=== PATIENT | female | born 1960 | race Caucasian/White ===

== ENCOUNTER → 2017-02-02 | Day surgery (SDC) | payer MEDICARE, MEDICAID ==
[~2017-02-02] VITALS: Ht 165.1 cm; Wt 143.3 kg
[~2017-02-02] MED LIST: AUGM875T27 PO; BISAC5TA PO; DOXY150C PO; FLUC10TA PO; FURO40TA2 PO; GABA-283 PO; HumaLOG INSULIN (NovoLOG) PER UNIT As Ordered ONE; HumaLOG INSULIN (NovoLOG) PER UNIT SC ONE; INSULANT SC; INVO300T PO; LEVOTAB10 PO; LIDOCAINE 2% INJ 100 MG/5 ML SDV (FOR ANES.) As Ordered ONE; LORA1TAB12 PO; LR 1,000 ML IV SCH; LYRI225C PO; METOCLOPRAMIDE INJ 10MG/2ML VIAL (J2765) As Ordered ONE; METOCLOPRAMIDE INJ 10MG/2ML VIAL (J2765) IV PRN; MIDAZOLAM INJ 2 MG/2 ML VIAL (J2250) As Ordered ONE; MONT10TA2 PO; NALOXONE INJ 0.4 MG/1 ML VIAL (J2310) As Ordered ONE; NORCO, ANEXSIA 5/325MG TABLET (HYDROcodone/ACETAMINOPHEN) PO PRN; OMEP40CA2 PO; ONDANSETRON 4MG/2ML VIAL (J2405) As Ordered ONE; ONDANSETRON 4MG/2ML VIAL (J2405) IV PRN; OXYC1TAB15 PO; OXYC5TAB2 PO; PERCOCET 5MG/325MG TAB PO PRN; PRAM0.5T4 PO; PROPOFOL 200 MG/20 ML VIAL As Ordered ONE; RANI1TAB6 PO; ROBA500T PO; ROPIvacaine 0.5% 30 ML INJECTION (J2795) As Ordered ONE; TOUJ1.2I SC; TRAZ100T4 PO; VENL150C43 PO; VENL37TA PO; VICT18IN SC; VITA500047 PO; fentaNYL 100 MCG/2 ML INJECTION (J3010) As Ordered ONE; fentaNYL 100 MCG/2 ML INJECTION (J3010) IV PRN
[2017-02-02 12:00] VITALS: BP 146/67
--- NOTE | 2017-02-03 08:19 | RO ---
DATE OF PROCEDURE: 02/02/2017 PREOPERATIVE DIAGNOSES: Right knee osteoarthritis and medial meniscus tear. POSTOPERATIVE DIAGNOSES: Right knee osteoarthritis and medial meniscus tear. Patient has morbid obesity with a body mass index (BMI) of 53. PROCEDURE: Right knee operative arthroscopy, partial medial (dictation cut off) debridement. SURGEON: Kirby Juarez MD PRINTED CIRCUIT PHOTOGRAPHER: EDITH Singh ANESTHESIA: Attempted spinal converted to a general. ESTIMATED BLOOD LOSS: Minimal. COMPLICATIONS: None. INDICATIONS: This is a 56-year-old, morbidly obese woman with BMI of 53, who has had gradually worsening right knee pain. MRI scan was consistent with a medial meniscus tear and some arthritis. She wished to ahead with surgical treatment having failed conservative management. She understood the nature of the procedure, risks of bleeding, infection, damage to nerves, vessels, persistent pain, wear loosening, blood clots, medical problems, , among others. A preop clearance was obtained. DESCRIPTION OF PROCEDURE: Patient was taken to the operating room and placed in supine position after an attempted spinal was performed and then this was converted to a general and the right lower extremity was prepped and draped in usual sterile fashion. A tourniquet was placed and inflated. I, after a time-out was performed, created inferomedial and inferolateral portals per routine. We did have to deflate the tourniquet briefly because she started moving a little bit and we had some bleeding that passed with tourniquet. So we deflated the tourniquet, reinflated it after elevation and I had much better visualization. The patellofemoral joint had grade 3 changes on the patella, which was carefully smoothed off with a shaver. She did have a medial plica and a suprapatellar plica that were excised. I proceeded down both gutters, identified the medial compartment. There was at least moderate arthritic change on the medial side. She had a complex posterior horn medial meniscus tear that was resected using a combination of basket punch and a 4.2 shaver back to a stable rim. I smoothed off the articular cartilage flaps that were loose, but again, there was grade II-III changes on the medial femoral condyle and medial tibial plateau. I debrided some of the fat pad. The anterior cruciate ligament (ACL) was identified, lateral compartment was identified, although it had some grade 1 changes did not have any significant meniscus pathology. I reexamined the entire joint. Irrigated copiously. Removed the instrumentation. Closed the portals using #4-0 nylon suture. Injected 30 mL of Naropin. Sterile dressing was applied. Tourniquet was deflated. She was taken to recovery room in stable condition. There were known complications. The plan will be routine postop. This was coded is an unusually difficult procedure because her morbid obesity, which made visualization much more difficult, much more difficult to manage and position the leg.
== END | disposition home or self-care (01) ==
LOC: M SDC 05:49
PROVIDERS: ATTEND Orthopaedic Surgery
DX: M17.11 Unilateral primary osteoarthritis, right knee (principal); M23.221 Derangement of posterior horn of medial meniscus due to old tear or injury, right knee; E66.01 Morbid (severe) obesity due to excess calories; E11.9 Type 2 diabetes mellitus without complications; Z79.4 Long term (current) use of insulin; F41.9 Anxiety disorder, unspecified; Z87.891 Personal history of nicotine dependence
CPT/HCPCS: 29881; J0690; J2250; J2310; J2405; J2765; J2795; J3010

== ENCOUNTER 2018-03-18 15:14 | Emergency (ER) | payer MEDICARE, MEDICAID ==
[2018-03-18] MEDS: CLINDAMYCIN 600 MG in APPROPRIATE DILUENT 1 EA IV (16:57)
[2018-03-18 17:17] LABS: BASO # 0.1 10^3/uL (0.0-0.2); BASO % 0.5 % (0.0-1.0); EOS # 0.1 10^3/uL (0.0-0.50); EOS % 0.5 % (0.0-3.0); HEMATOCRIT 42.3 % (36.0-47.0); HEMOGLOBIN 13.6 g/dl (12.0-15.5); LYMPH # 2.4 10^3/uL (1.5-4.5); LYMPH % 24.6 % (24.0-44.0); MEAN CORPUSCULAR HEMOGLOBIN 28.6 pg (27.0-33.0); MEAN CORPUSCULAR HGB CONC 32.2 g/dl (32.0-36.5); MEAN CORPUSCULAR VOLUME 89.1 fl (80.0-96.0); MONO # 0.5 10^3/uL (0.0-0.8); MONO % 5.3 % (0.0-5.0); NEUTROPHILS # 6.6 10^3/uL (1.8-7.7); NEUTROPHILS % 68.1 % (36.0-66.0); PLATELET COUNT, AUTOMATED 197 10^3/uL (150-450); RED BLOOD COUNT 4.75 10^6/uL (4.00-5.40); RED CELL DISTRIBUTION WIDTH 14.5 % (11.5-14.5); WHITE BLOOD COUNT 9.8 10^3/uL (4.0-10.0)
[2018-03-18 17:22] LABS: ANION GAP 8 MEQ/L (8-16); BLOOD UREA NITROGEN 15 MG/DL (7-18); C REACTIVE PROTEIN QUANTITATIV 2.56 MG/DL (0.00-0.30); CALCIUM LEVEL 8.3 MG/DL (8.5-10.1); CARBON DIOXIDE LEVEL 31 MEQ/L (21-32); CHLORIDE LEVEL 105 MEQ/L (98-107); CREATININE FOR GFR 0.78 MG/DL (0.55-1.30); GLOMERULAR FILTRATION RATE > 60.0 (>51); GLUCOSE, FASTING 287 MG/DL (70-100); POTASSIUM SERUM 3.3 MEQ/L (3.5-5.1); SODIUM LEVEL 144 MEQ/L (136-145)
[2018-03-18 17:46] LABS: ERYTHROCYTE SEDIMENTATION RATE 29 mm/hr (0-30)
== END 2018-03-18 18:09 | disposition home or self-care (01) ==
LOC: M ED 15:14
DX: L03.116 Cellulitis of left lower limb (principal); E11.9 Type 2 diabetes mellitus without complications; K21.9 Gastro-esophageal reflux disease without esophagitis; M79.7 Fibromyalgia; Z79.899 Other long term (current) drug therapy
CPT/HCPCS: 80048

== ENCOUNTER → 2019-03-16 | Outpatient (CLI) | payer MEDICARE, MEDICAID ==
[~2019-03-16] MED LIST changes: +ALEV220T26 PO; +BACT800T5 PO; -GABA-283 PO; +GABA-845 PO; -HumaLOG INSULIN (NovoLOG) PER UNIT As Ordered ONE; -HumaLOG INSULIN (NovoLOG) PER UNIT SC ONE; -LIDOCAINE 2% INJ 100 MG/5 ML SDV (FOR ANES.) As Ordered ONE; -LR 1,000 ML IV SCH; -METOCLOPRAMIDE INJ 10MG/2ML VIAL (J2765) As Ordered ONE; -METOCLOPRAMIDE INJ 10MG/2ML VIAL (J2765) IV PRN; -MIDAZOLAM INJ 2 MG/2 ML VIAL (J2250) As Ordered ONE; -NALOXONE INJ 0.4 MG/1 ML VIAL (J2310) As Ordered ONE; -NORCO, ANEXSIA 5/325MG TABLET (HYDROcodone/ACETAMINOPHEN) PO PRN; -ONDANSETRON 4MG/2ML VIAL (J2405) As Ordered ONE; -ONDANSETRON 4MG/2ML VIAL (J2405) IV PRN; -PERCOCET 5MG/325MG TAB PO PRN; +PRAM0.5T7 PO; -PROPOFOL 200 MG/20 ML VIAL As Ordered ONE; -ROPIvacaine 0.5% 30 ML INJECTION (J2795) As Ordered ONE; +TIZANIDINE PO; +TRAZ-163 PO; -TRAZ100T4 PO; -fentaNYL 100 MCG/2 ML INJECTION (J3010) As Ordered ONE; -fentaNYL 100 MCG/2 ML INJECTION (J3010) IV PRN
[2019-03-16 13:31] LABS: BASO # 0.1 10^3/uL (0.0-0.2); BASO % 0.7 % (0.0-1.0); EOS % 0.5 % (0.0-3.0); HEMATOCRIT 41.3 % (36.0-47.0); HEMOGLOBIN 13.1 g/dl (12.0-15.5); LYMPH # 1.9 10^3/uL (1.5-4.5); LYMPH % 24.4 % (24.0-44.0); MEAN CORPUSCULAR HEMOGLOBIN 28.8 pg (27.0-33.0); MEAN CORPUSCULAR HGB CONC 31.7 g/dl (32.0-36.5); MEAN CORPUSCULAR VOLUME 90.8 fl (80.0-96.0); MONO # 0.5 10^3/uL (0.0-0.8); MONO % 6.5 % (0.0-5.0); NEUTROPHILS # 5.2 10^3/uL (1.8-7.7); NEUTROPHILS % 67.2 % (36.0-66.0); PLATELET COUNT, AUTOMATED 169 10^3/uL (150-450); RED BLOOD COUNT 4.55 10^6/uL (4.00-5.40); WHITE BLOOD COUNT 7.7 10^3/uL (4.0-10.0)
[2019-03-16 14:50] LABS: ALBUMIN 3.9 GM/DL (3.2-5.2); ALT/SGPT 23 U/L (12-78); BILIRUBIN,TOTAL 0.5 MG/DL (0.2-1.0); BLOOD UREA NITROGEN 17 MG/DL (7-18); CALCIUM LEVEL 8.6 MG/DL (8.5-10.1); CARBON DIOXIDE LEVEL 31 MEQ/L (21-32); CHLORIDE LEVEL 106 MEQ/L (98-107); CHOLESTEROL LEVEL 169 MG/DL (<200); CHOLESTEROL RISK RATIO 4.828 (<5); CREATININE FOR GFR 0.62 MG/DL (0.55-1.30); GLOMERULAR FILTRATION RATE > 60.0 (>51); GLUCOSE, FASTING 187 MG/DL (70-100); HDL CHOLESTEROL 35 MG/DL (>40); LDL CHOLESTEROL 110 MG/DL (<100); NON-HDL-C 134 MG/DL; POTASSIUM SERUM 4.3 MEQ/L (3.5-5.1); SODIUM LEVEL 143 MEQ/L (136-145); TOTAL 25(OH) VITAMIN D 24.9 NG/ML (30.0-100.0); TOTAL PROTEIN 6.8 GM/DL (6.4-8.2); TRIGLYCERIDES LEVEL 119 MG/DL (<150)
[2019-03-16 16:13] LABS: HEMOGLOBIN A1c 8.8 %
== END ==
LOC: M WUC 11:54
PROVIDERS: ATTEND Nurse Practitioner Family
DX: Z13.220 Encounter for screening for lipoid disorders (principal); I10 Essential (primary) hypertension; E55.9 Vitamin D deficiency, unspecified; E11.9 Type 2 diabetes mellitus without complications

== ENCOUNTER → 2019-11-10 | Outpatient (CLI) | payer MEDICAID, MEDICARE, OTHER ==
[~2019-11-10] MED LIST changes: +OMEP40CA97 PO; +RANI-397 PO; -RANI1TAB6 PO
--- NOTE | 2019-11-10 12:29 | REPMRS ---
Patient History The patient states she has not had a clinical breast exam in over a year. Family history of lymphoma at age 62 in mother, breast cancer under age 50 in maternal aunt, prostate cancer at age 70 in maternal uncle. Priors done @ [facility]: November 10, 2019 - Exam #: [id number] Bilateral CC and MLO view(s) were taken. Technologist: Valarie Maciel, Technologist Prior study comparison: April 22, 2017, bilateral digital woman screen mammo, performed at [facility]. FINDINGS: The breast tissue is almost entirely fat. There has been no change in the appearance of the mammogram from the prior studies. There is no interval development of dominant mass, architectural distortion, or grouped microcalcification typical of malignancy. 3-D tomosynthesis shows no additional findings. Assessment: BI-RADS/ACR category 1 mammogram. Negative Mammogram. Recommendation Routine screening mammogram of both breasts in 1 year (for women over age 40). This patient's Lifetime Breast Cancer RIsk is estimated at 10.9 %. This mammogram was interpreted with the aid of an FDA-approved computer-aided dectection system. Electronically Signed By: Arnoldo Clayton MD 11/10/19 2931
--- NOTE | 2019-11-15 09:31 | DEXA ---
AP SPINE L1 - L4 1.288 0.8 1.8 LT FEMUR TOTAL 1.066 0.5 1.3 LT NECK 0.889 -1.1 0.1 RT FEMUR TOTAL 1.047 0.3 1.1 RT NECK 0.880 -1.1 0.0 TOTAL BODY TOTAL OTHER COMMENTS: Normal bone densitometry of the spine. There is low bone density of the hips. FOLLOW-UP: Recommendation for the next bone density exam: 2 years. EUGENIO
== END ==
LOC: M WHC 10:03
PROVIDERS: ATTEND Nurse Practitioner Family
DX: Z12.31 Encounter for screening mammogram for malignant neoplasm of breast (principal); Z13.820 Encounter for screening for osteoporosis; Z80.3 Family history of malignant neoplasm of breast

== ENCOUNTER → 2019-11-28 | Outpatient (REF) | payer MEDICARE ==
[2019-11-28 20:48] LABS: HEMOGLOBIN A1c 9.2 %
[2019-11-28 20:57] LABS: CREATININE, URINE 25.3 MG/DL; MALB URINE SIEMENS 35.7 MG/L; MAU/CREAT RATIO 141.1 MCG/MG (0.0-30.0)
== END ==
LOC: M SFHCLERA 17:02
PROVIDERS: ATTEND Nurse Practitioner Family
DX: E11.9 Type 2 diabetes mellitus without complications (principal); R53.83 Other fatigue; Z79.899 Other long term (current) drug therapy

== ENCOUNTER → 2019-12-15 | Outpatient (CLI) | payer MEDICARE ==
[~2019-12-15] MED LIST changes: -LORA1TAB12 PO; +LORA1TAB4 PO; -MONT10TA2 PO; +MONT10TA4 PO; -TRAZ-163 PO; +TRAZ-257 PO
--- NOTE | 2020-01-04 03:22 | ECWPNPC ---
PATIENT NAME: KLAUS MUNOZ : 1960 GENDER: FEMALE VISIT DATE: 12/15/2019 DISCHARGE DATE: 12/15/19 1542 VISIT LOCKED DATE TIME: PHYSICIAN: ROEL CORBETT RESOURCE: ROEL CORBETT REASON FOR APPOINTMENT 1. FIBROMYALGIA HISTORY OF PRESENT ILLNESS PAIN SCREENIN-YEAR-OLD FEMALE BEING REFERRED BY IVETTE SUTTON, FAMILY PRACTICE FOR CHRONIC GENERALIZED PAIN WITH DIAGNOSIS OF FIBROMYALGIA. PATIENT HAS SUFFERED FROM GENERALIZED JOINT PAIN AND BACK PAIN FOR SEVERAL YEARS. DENIES PRECIPITATING EVENT. FEELS PAIN IS ESCALATED OVER THE PAST 2 YEARS. HAS TRIALED LYRICA IN 2013 WITH A 45 POUND WEIGHT GAIN DUE TO SWELLING. CHIEF AREA OF PAIN IS HIPS AND SHOULDERS. HAS BEEN ON GABAPENTIN 300 MG 3 TIMES A DAY THAT IS BEEN HELPFUL WITH NEUROPATHY. HAS TRIALED TRIGGER POINT INJECTIONS AT ANOTHER PAIN PRACTICE LOCALLY WITH SHORT-TERM IMPROVEMENT. DESCRIBES PAIN CONTINUOUS, SHARP, ACHING AND STABBING. RATING PAIN INTENSITY 7-10 OVER 10 VAS. REPORTS DEPRESSIVE SYMPTOMS DUE TO INABILITY TO TOLERATE ACTIVITIES OF DAILY LIVING DUE TO CHRONIC PAIN. PATIENT HAS A COMPLAINT OF ACUTE OR CHRONIC PAIN :YES FALL RISK SCREENING: SCREENING :NO FALLS REPORTED IN THE LAST YEAR CURRENT MEDICATIONS TAKING CEPHALEXIN 500 MG CAPSULE 1 CAPSULE ORALLY EVERY 12 HRS TAKING GABAPENTIN 300 MG CAPSULE 1 CAPSULE ORALLY THREE TIMES DAILY TAKING RANITIDINE 150 MAX STRENGTH 150 MG TABLET 1 TABLET AT BEDTIME ORALLY BID TAKING TIZANIDINE HCL 4 MG TABLET TK 1 T PO TID PRN ORAL TAKING VENLAFAXINE HCL ER 150 MG CAPSULE EXTENDED RELEASE 24 HOUR 1 CAPSULE WITH FOOD ORALLY ONCE A DAY TAKING OMEPRAZOLE 40 MG CAPSULE DELAYED RELEASE 1 CAPSULE ORALLY ONCE A DAY TAKING INVOKANA 300 MG TABLET 1 TABLET ORALLY ONCE A DAY TAKING MONTELUKAST SODIUM 10 MG TABLET 1 TABLET ORALLY ONCE A DAY TAKING TRAZODONE HCL 100 MG TABLET 1 TABLET AT BEDTIME ORALLY ONCE A DAY TAKING LEVOCETIRIZINE DIHYDROCHLORIDE 5 MG TABLET 1 TABLET IN THE EVENING ORALLY ONCE A DAY TAKING TOUJEO SOLOSTAR 300 UNIT/ML SOLUTION PEN-INJECTOR 100 UNITS SUBCUTANEOUS BEFORE BEDTIME TAKING VENLAFAXINE HCL 37.5 MG TABLET 1 TABLET WITH FOOD ORALLY BID TAKING PRAMIPEXOLE DIHYDROCHLORIDE 0.5 MG TABLET 2 TABLET ORALLY ONCE A DAY TAKING FUROSEMIDE 40 MG TABLET 1 TABLET ORALLY DAILY/PRN, NOTES: PT TAKES PRN TAKING AMITRIPTYLINE HCL 10 MG TABLET 2 TAB ORALLY ONCE A DAY TAKING JANUVIA 100 MG TABLET TAKE 1 TABLET EVERY DAY , NOTES: 1/2 TAB DAILY TAKING DRISDOL 1.25 MG (58013 UT) CAPSULE 1 CAPSULE ORALLY WEEKLY TAKING LIDOCAINE HCL 5 % CREAM DIRECTED EXTERNALLY THREE TIMES DAILY NEEDED NOT-TAKING DIFLUCAN 150 MG TABLET 1 TABLET ORALLY ONCE DAILY, REPEAT IN 72 HOURS NOT-TAKING LEVOCETIRIZINE DIHYDROCHLORIDE 5 MG TABLET 1 TABLET IN THE EVENING ORALLY ONCE A DAY MEDICATION LIST REVIEWED AND RECONCILED WITH THE PATIENT PAST MEDICAL HISTORY FIBROMYALGIA DIABETES DYSTHYMIA INSOMNIA SINUSITIS/ALLERGIC RHINITIS GERD ANXIETY HERNIATED DISCS CERVICAL SPINE ALLERGIES N.K.D.A. SURGICAL HISTORY GALLBLADDER REMOVED RIGHT KNEE BILAT HANDS CARPEL TUNNEL PARTIAL HYSTERECTOMY RIGHT ARM LUMP REMOVAL FAMILY HISTORY FATHER: 82 YRS MOTHER: 62 YRS, DIAGNOSED WITH OTHER MALIGNANT NEOPLASM OF UNSPECIFIED SITE 2 BROTHER(S) , 1 SISTER(S) - HEALTHY. 1 SON(S) , 1 DAUGHTER(S) - HEALTHY. ALL SIBLINGS ARE DIABETICSISTER - THYROID DISEASEMOTHER - CANCER OF LYMPH NODESFATHER - COPD. SOCIAL HISTORY GENERAL: TOBACCO USE ARE YOU A:FORMER SMOKER QUIT 2007 HIV / HEP-C SCREENING HIV TEST OFFERED TO PATIENT:YES DATE OFFERED:07/12/2019 TEST ACCEPTED:NO HEP-C TEST OFFERED TO PATIENT:YES DATE OFFERED:07/12/2019 REASON:PATIENT DECLINED TEST ACCEPTED:NO REASON:PATIENT DECLINED BROCHURE PROVIDED TO PATIENTYES OTHERS AT HOME: SPOUSE, CHILD, GRANDCHILDREN. EDUCATION LEVEL OF EDUCATION:FINISHED HIGH SCHOOL DIET: REGULAR. LANGUAGE LANGUAGES SPOKEN:ROMANIAN DOMESTIC VIOLENCE DO YOU FEEL SAFE IN YOUR ENVIRONMENT?YES BMI CARE GOAL FOLLOW-UP ABOVE NORMAL BMI FOLLOW-UPDIETARY MANAGEMENT EDUCATION, GUIDANCE, AND COUNSELING, DIETARY NEEDS EDUCATION RECREATIONAL DRUG USE DRUG USE?NO PATIENT DENIES ABUSE OR MISSUSED OF ANY MEDICATION DENIES PATIENT DENIES USE OF ANY ILLEGAL SUBSTANCE INCLUDING MARIJUANA OR COCAINE DENIES EXERCISE: WALKS. LEARNING BARRIERS / SPECIAL NEEDS CHANGE FROM LAST VISIT?NO BARRIERS TO LEARNING?NO HEARING IMPAIRED?NO VISION IMPAIRED?YES :CORRECTIVE LENSES COGNITIVELY IMPAIRED?NO READINESS TO LEARN?YES LEARNING PREFERENCES?NO LEARNING CAPABILITIES PRESENT?YES EMOTIONAL BARRIERS?NO SPECIAL DEVICES?YES :CANE, WALKER ONLY USES WHEN NEEDED SUPERVISOR GRADING NEEDED?NO PAIN CLINIC PFS, CLERGY, PUBLIC HEALTH REFERRALS PFS REFERRAL NEEDED?NO CLERGY REFERRAL NEEDED?NO PUBLIC HEALTH REFERRAL NEEDED?NO WAS THE PROVIDER NOTIFIED OF ANY PERTINENT INFO?YES HAS THE PATIENT BEEN EDUCATED REGARDING HIS/HER PLAN OF CARE?YES HAS THE PATIENT BEEN EDUCATED REGARDING PAIN, THE RISK FOR PAIN, THE IMPORTANCE OF EFFECTIVE PAIN MANAGEMENT, AND THE PAIN ASSESSMENT PROCESS?YES LATEX QUESTIONNAIRE LATEX ALLERGY : HAVE YOU EVER DEVELOPED ANY TYPE OF REACTION AFTER HANDLING LATEX PRODUCTS SUCH RUBBER GLOVES, CONDOMS, DIAPHRAGMS, BALLOONS, SOCKS, OR UNDERWEAR?NO LATEX ALLERGY : HAVE YOU EVER DEVELOPED ANY TYPE OF REACTION DURING OR AFTER DENTAL APPOINTMENT, VAGINAL/RECTAL EXAMINATION, SURGICAL PROCEDURE, OR ANY OTHER EXPOSURE?NO LATEX RISK : HAVE YOU EVER HAD ANY DIFFICULTY BREATHING OR HIVES AFTER EATING OR HANDLING ANY FRUITS, OR VEGETABLES; SUCH KIWI, BANANAS, STONE FRUITS, OR CHESTNUTSNO LATEX RISK : DO YOU HAVE A PREVIOUS PERSONAL HISTORY OF MORE THAN NINE SURGERIES, SPINA BIFIDA, OR REPEATED CATHERIZATIONS? NO LATEX RISK : ARE YOU FREQUENTLY EXPOSED TO LATEX PRODUCTS IN YOUR OCCUPATION?NO DATE ASKED : 11/03/2019 CAFFEINE CAFFEINE USE?YES HOW OFTEN AND HOW MUCH? DIET PEPSI ADVANCE DIRECTIVE ADVANCE DIRECTIVE DISCUSSED WITH PATIENT:YES PT STATES SHE HAS A HCP- SON CYNTHIA MUNOZ [phone] UATSDIN [id number] ALEVISM MARITAL STATUS: . ALCOHOL SCREENING DID YOU HAVE A DRINK CONTAINING ALCOHOL IN THE PAST YEAR?YES HOW OFTEN DID YOU HAVE A DRINK CONTAINING ALCOHOL IN THE PAST YEAR?MONTHLY OR LESS (1 POINT) HOW MANY DRINKS DID YOU HAVE ON A TYPICAL DAY WHEN YOU WERE DRINKING IN THE PAST YEAR?1 OR 2 (0 POINTS) HOW OFTEN DID YOU HAVE SIX OR MORE DRINKS ON ONE OCCASION IN THE PAST YEAR?NEVER (0 POINTS) POINTS1 INTERPRETATIONNEGATIVE OCCUPATION: DISABLED. SEXUAL HX HAD SEX IN THE LAST 12 MONTHS (VAGINAL, ORAL, OR ANAL)?NO HAVE YOU EVER HAD AN STD?NO REVIEWED WITH PATIENT 12/15/2019 1329 JS. HOSPITALIZATION/MAJOR DIAGNOSTIC PROCEDURE SURGERIES CHILD BOIL TO LEFT BUTTOCKS REVIEW OF SYSTEMS REVIEWED BY: PROVIDER: ROEL STEELE . CONSTITUTIONAL: ANY CHANGE IN YOUR MEDICAL CONDITION? NO . CHILLS NO . FEVER NO . INFECTION: DO YOU HAVE NEW INFECTIONS? NO . DO YOU HAVE HISTORY OF MRSA? NO . MUSCULOSKELETAL: ANY NEW PATTERNS OF PAIN OR NUMBNESS? YES, STATES NUMBNESS IN HANDS AND ARMS WORSENING - UNABLE TO HOLD THINGS AT TIMES. ALSO STATES SHAKINESS THAT STARTED RECENTLY. CONSTANTLY IN PAIN AND CONSTANTLY MOVING TO TRY TO GET MORE COMFORTABLE AND HAVE LESS PAIN . SYTEMIC LUPUS NO . GASTROENTEROLOGY: ANY NEW CHANGE IN BOWEL CONTROL? YES, STATES OCCASSIONAL INCONTINENCE DUE TO URGENCY - CAN'T TELL AHEAD OF TIME THAT SHE NEEDS TO HAVE A BOWEL MOVEMENT . BARRETTS ESOPHAGUS NO . CIRRHOSIS NO . HEPATITIS NO . LIVER FAILURE NO . ACID REFLUX YES . UNEXPLAINED WEIGHT LOSS NO . GENITOURINARY: ANY NEW CHANGE IN BLADDER CONTROL? YES, STATES URGENCY, FREQUENCY, AND INCONTINENCE . IS THERE A CHANCE YOU COULD BE ? NO . HEMATOLOGY/LYMPH: DO YOU TAKE ANY BLOOD THINNERS? (FOR EXAMPLE- COUMADIN, PLAVIX, AGGRENOX, PLATEL, PRADAXA, OR XARELTO) NO . WHEN WAS YOUR LAST DOSE? DATE: TIME: . LOW PLATELET COUNT NO . SICKLE CELL DISEASE NO . VON WILLIEBRANDS NO . FACTOR V LEIDEN NO . THALLASEMIA NO . ANEMIA NO . EASY BRUISING NO . NEUROLOGY: HAVE YOU FALLEN IN THE PAST 12 MONTHS? NO . ANY NEW EXTREMITY NUMBNESS OR WEAKNESS? YES, NUMBNESS/WEAKNESS TO ARMS . HEAD INJURY NO . DEMENTIA NO . CEREBRAL PALSY NO . MULTIPLE SCLEROSIS NO . DIZZINESS NO . HEADACHE NO . STROKES NO . VERTIGO NO . CARDIOLOGY: DO YOU HAVE A PACEMAKER OR DEFIBRILLATOR? NO . ANGINA NO . HEART ATTACK NO . HEART SURGERY NO . CONGESTIVE HEART FAILURE/FLUID OVERLOAD NO . CHEST PAIN NO . HIGH BLOOD PRESSURE NO . IRREGULAR HEART BEAT NO . RESPIRATORY: HAVE YOU BEEN SICK IN THE PAST WEEK? NO . FEVER NO . FLU LIKE SYMPTOMS? NO . CPAP NO . BYPAP NO . ASTHMA NO . EMPHYSEMA NO . CHRONIC LUNG DISEASES NO . SHORTNESS OF BREATH ON EXERTION NO . COUGH NO . SNORING YES . INTEGUMENTARY: DO YOU HAVE ANY RASHES OR OPEN SORES? NO . ALLERGIC/IMMUNO: ARE YOU ALLERGIC TO IV DYE? NO . ANY NEW ALLERGIES? NO . PSYCHIATRIC: DO YOU HAVE THOUGHTS OF HURTING YOURSELF OR SOMEONE ELSE? NO . ARE YOU ABUSED, NEGLECTED, OR IN AN UNSAFE ENVIRONMENT? NO . ENDOCRINOLOGY: ARE YOU DIABETIC? YES, TYPE 2 . THYROID DISORDER NO . OTHER: DO YOU NEED ANY PRESCRIPTIONS? NO . IF YES, PLEASE LIST: ____ . ANY NEW PROBLEMS WITH YOUR MEDICATIONS? NO . WHEN DID YOU LAST EAT? ____ . WHEN DID YOU LAST DRINK? ____ . WHAT DID YOU LAST DRINK? ____ . NAME OF PERSON DRIVING YOU HOME? ____ . DO YOU HAVE ANY OTHER QUESTIONS OR CONCERNS YES, STATES HER QUALITY OF LIFE HAS JUST DECREASED SO MUCH AND NEARLY DIMINISHED AND IS CONCERNED THAT HER PAIN WILL NEVER SUBSIDE . VITAL SIGNS WT 328 LBS, HT 66 IN, BMI 52.93 INDEX, BP 149/76 MM HG, HR 103 /MIN, RR 18 /MIN, TEMP 98.1 F, OXYGEN SAT % 94%, SAFE IN ENV? (Y/N) YES, NA INITIALS AW 1317, REVIEWED BY: JOSE G. EXAMINATION GENERAL EXAMINATION: GENERAL AWAKE,ALERT ,PLEASANT . PSYCH AFFECT NORMAL . LUNGS: LUNG JACK ARE CLEAR TO AUSCULTATION BILATERALLY. GOOD MOVEMENT OF AIR . HEART: S1, S2 IN A REGULAR RATE AND RHYTHM. NO SIGNIFICANT MURMURS, RUBS OR GALLOPS NOTED . MUSCULOSKELETAL: MULTIPLE AREAS OF TENDER SPOTS UPPER/LOWER TORSO INDICATIVE OF FIBROMYALGIA. THORACIC SPINE: TRIGGER POINTS:, ELICITED WITH PALPATION OVER MID THORACIC PARASPINAL MUSCLES WITH INCREASE IN PAIN NOTED WITH ROJM SPINE.. ASSESSMENTS FIBROMYALGIA - M79.7 (PRIMARY) TREATMENT FIBROMYALGIA NOTES: TPI MID/LOW THORACIC, PATIENT WAS ADVISED TO START A WALKING PROGRAM TO STRENGTHEN LUMBAR PARASPINAL MUSCLES AND IMPROVE MOBILITY. THEY WERE ADVISED THAT THIS WILL IMPROVE WEIGHT LOSS AND ALSO DEPRESSION/FIBROMYALGIA SYMPTOMS. ADVISED TO WALK 10 MINUTES EVERY OTHER DAY ON A FLAT SURFACE. EMPHASIZED THE IMPORTANCE OF DOING THIS CONSISTANTLY AND NOT SPORATICALLY TO AVOID INJURY. ADVISED NOT TO DO MORE THAN 10 MINUTES EVERY OTHER DAY FOR THE FIRST 4 WEEKS.DISCUSSED BEING EVALUATED FOR DEPRESSION SECONDARY TO CHRONIC PAIN AT WALK [facility] AT [facility] THURSDAY THROUGH THURSDAY 8 UNTIL NOON. PREVENTIVE MEDICINE PAIN CLINIC TEACHING: PROCEDURE TEACHING PRINTED AND REVIEWED INFORMATION ON TRIGGER POINT INJECTION PROCEDURE WITH PATIENT. ALSO REVIEWED PRE-PROCEDURE INSTRUCTIONS. PATIENT VERBALIZED AN UNDERSTANDING. ZACARIAS PACHECO 12/15/2019 5:02:49 PM > . PROCEDURE CODES FA211 ESTABILISHED PATIENT [facility] FACILITY CHARGE DISPOSITION & COMMUNICATION FOLLOW UP POST (REASON: TPI MID/LOW THORACIC) ELECTRONICALLY SIGNED BY IVETTE LOYOLA ON 01/03/2020 AT 01:17 PM EST DISCLAIMER : THIS IS A VISIT SUMMARY EXTRACTED FROM THE [employer] CHART. IT IS NOT A COPY OF THE [employer] PROGRESS NOTE. EUGENIO
== END ==
LOC: M PAIN 13:00
PROVIDERS: ATTEND Nurse Practitioner Family
DX: M79.7 Fibromyalgia (principal); E11.9 Type 2 diabetes mellitus without complications; G47.00 Insomnia, unspecified; K21.9 Gastro-esophageal reflux disease without esophagitis; Z86.59 Personal history of other mental and behavioral disorders; Z87.891 Personal history of nicotine dependence; E66.01 Morbid (severe) obesity due to excess calories; Z68.43 Body mass index [BMI] 50.0-59.9, adult; Z79.4 Long term (current) use of insulin; Z79.899 Other long term (current) drug therapy

== ENCOUNTER → 2020-01-03 | Outpatient (POV) | payer MEDICARE, OTHER ==
[~2020-01-03] VITALS: Ht 167.6 cm; Wt 144.1 kg
[2020-01-03 10:30] VITALS: BP 142/81
--- NOTE | 2020-01-04 13:25 | IRCOV ---
[facility] IR Consult Office Visit IR Consult Office Visit DATE: Jan 03, 2020 REASON FOR CONSULTATION/CHIEF COMPLAINT: Left leg swelling and varicosities. HISTORY OF PRESENT ILLNESS: 59-year-old female with diabetes presents with three-year history of left greater than right limb swelling and pain. She describes stretching, burning and pulling sensations in the left leg. Intermittently the leg swells up hot and red and she's been on multiple courses of antibiotics in the past for this. Swelling goes down with elevation overnight. She does wear compression stockings to the knees. She is on her feet quite a bit. Denies intermittent claudication or rest pain. She is on gabapentin 300 mg TID which helps. She describes numbness in the toes and ankle. No history of vein stripping or therapy in the past. No prior history of deep vein thrombosis. No chest pain, shortness of breath, paroxysmal nocturnal dyspnea or orthopnea. No fevers or chills. ALLERGIES: Please see below. HOME MEDICATIONS: Please see below. PAST MEDICAL HISTORY: Fibromyalgia Diabetes Dysthymia Insomnia Sinusitis GERD Anxiety Cervical spine disc disease PAST SURGICAL HISTORY: Cholecystectomy Right knee surgery Carpal Tunnel surgery Partial hysterectomy Right arm lump removal FAMILY HISTORY: Noncontributory. SOCIAL HISTORY: Ex-smoker quit in 2007. No alcohol or drugs. REVIEW OF SYSTEMS: Otherwise negative. PHYSICAL EXAMINATION: VITAL SIGNS: Please see below. GENERAL APPEARANCE: Appears well. Comfortable at rest. HEENT: No scleral icterus. RESPIRATORY: Normal breathing at rest. CARDIOVASCULAR: Normal rate. ABDOMEN: Soft nontender. EXTREMITIES: Left lower extremity: Edema to mid-calf. Hemosiderin deposition above ankle. Bulging varicosities. Skin thickening. Warm to touch. Popliteal pulse + DP/PT + Right lower; trace edema. No hemosiderin deposition. No varicosities. No skin thickening. Warm to touch. Popliteal pulse + DP/PT + NEUROLOGICAL: Alert and oriented. PSYCHIATRIC: Appropriate to circumstance. LABORATORY DATA: No recent labs Imaging: I personally reviewed the left lower extremity ultrasound DVT study from 2018 at which time there was no deep vein thrombosis. No venous reflux study available. ASSESSMENT/PLAN: 59-year-old female with left greater than right lower extremity swelling associated with varicosities and pain. I'll schedule the patient for a venous reflux study. If there is indeed venous insufficiency and reflux in the superficial veins, she would be a candidate for EVLT therapy. We'll follow-up with the patient once the ultrasound is complete. I spent 30 minutes in consultation with the patient. Thank you for this referral. Cc Paul Vinson Allergies Coded Allergies: No Known Allergies (Verified , 01/29/13) Home Medications Scheduled Canagliflozin (Invokana), 300 MG PO DAILY, (Reported) Furosemide (Furosemide), 40 MG PO DAILY, (Reported) Gabapentin (Gabapentin), 400 MG PO QID, (Reported) Levocetirizine Dihydrochloride (Levocetirizine Dihydrochloride), 5 MG PO QHS, (Reported) Montelukast Sodium (Montelukast Sodium), 10 MG PO QHS, (Reported) Omeprazole (Omeprazole), 40 MG PO DAILY, (Reported) Ranitidine HCl (Ranitidine HCl), 1 TAB PO BID, (Reported) Sulfamethoxazole/Trimethoprim (Bactrim Ds Tablet), 1 TAB PO Q12H Trazodone HCl (Trazodone HCl), 100 MG PO QHS, (Reported) Venlafaxine HCl (Venlafaxine HCl ER), 150 MG PO QHS, (Reported) Venlafaxine HCl (Venlafaxine HCl), 37.5 MG PO BID, (Reported) Scheduled PRN Naproxen Sodium (Aleve), 220 MG PO PRN PRN for pain, (Reported) [Tizanidine], PO PRN PRN for pain, (Reported) Miscellaneous Medications Insulin Glargine,Hum.rec.anlog (Mallika Sawant), 100 UNIT SC, (Reported) Pramipexole Dihydrochloride (Pramipexole Dihydrochlori), 0.5 MG PO, (Reported) VS, I&O, 24H, Fishbone Vital Signs/I&O Vital Signs Date Time Temp Pulse Resp B/P (MAP) Pulse Ox O2 Delivery O2 Flow Rate FiO2 01/03/20 10:30 98.8 91 18 142/81 (101) 94 Room Air DELIO RAMIREZ MD Jan 04, 2020 13:25
== END ==
LOC: M IRPOV 10:09
PROVIDERS: ATTEND Radiology Diagnostic Radiology
DX: I83.813 Varicose veins of bilateral lower extremities with pain (principal); R60.0 Localized edema; E11.9 Type 2 diabetes mellitus without complications; M79.7 Fibromyalgia; F34.1 Dysthymic disorder; G47.00 Insomnia, unspecified; J32.9 Chronic sinusitis, unspecified; K21.9 Gastro-esophageal reflux disease without esophagitis; F41.9 Anxiety disorder, unspecified; M50.80 Other cervical disc disorders, unspecified cervical region; Z87.891 Personal history of nicotine dependence

== ENCOUNTER → 2020-01-10 | Outpatient (CLI) | payer OTHER ==
--- NOTE | 2020-01-10 09:41 | REP ---
Clinical: Varicosities. Swelling and cellulitis. Technique: De Leon scale and color Doppler evaluation of the left lower extremity using linear high frequency transducer. Findings: Ultrasound examination of the left lower extremity deep venous structures from the common femoral vein to the popliteal vein demonstrates normal compressibility flow and wave patterns in response to respiration and augmentation. There is no evidence for deep venous thrombosis. Reflux evaluation demonstrates mild reflux through the anterior accessory greater saphenous vein and no further reflux through the superficial or deep venous systems. Proximal greater saphenous vein measures 6.9 mm; mid greater saphenous vein measures 5.4 mm; distal greater saphenous vein measures 4.9 mm. Impression: No evidence for deep venous thrombosis. Mild reflux noted through the anterior accessory greater saphenous vein. Electronically Signed by Klaus Vallecillo MD 01/10/2020 09:33 A
== END ==
LOC: M RAD 08:39
PROVIDERS: ATTEND Radiology Diagnostic Radiology
DX: I83.90 Asymptomatic varicose veins of unspecified lower extremity (principal); I87.9 Disorder of vein, unspecified; M79.89 Other specified soft tissue disorders; L03.116 Cellulitis of left lower limb

== ENCOUNTER → 2020-01-26 | Outpatient (CLI) | payer OTHER ==
[~2020-01-26] MED LIST changes: +BUPIVACAINE HCL 0.25% 30 ML VIAL As Ordered ONE; +TRIAMCINOLONE ACETONIDE SUSP 40 MG/ML VIAL (J3301) As Ordered ONE; +[UNRECOGNIZED DRUG - CODE] PO
--- NOTE | 2020-02-02 06:00 | ECWPNPC ---
PATIENT NAME: KLAUS MUNOZ : 1960 GENDER: FEMALE VISIT DATE: 01/26/2020 DISCHARGE DATE: 01/26/20 1527 VISIT LOCKED DATE TIME: PHYSICIAN: MAURICIO JONES MD RESOURCE: MAURICIO JONES MD REASON FOR APPOINTMENT 1. TPI MID/LOW THORACIC HISTORY OF PRESENT ILLNESS HISTORY OF PRESENT ILLNESS: PAIN THE PATIENT DESCRIBES THE PAIN... FALL RISK SCREENING: SCREENING :NO FALLS REPORTED IN THE LAST YEAR CURRENT MEDICATIONS TAKING RANITIDINE 150 MAX STRENGTH 150 MG TABLET 1 TABLET AT BEDTIME ORALLY BID, NOTES: 01/26/20829 TAKING TIZANIDINE HCL 4 MG TABLET TK 1 T PO TID PRN ORAL , NOTES: NONE RECENTLY TAKING VENLAFAXINE HCL ER 150 MG CAPSULE EXTENDED RELEASE 24 HOUR 1 CAPSULE WITH FOOD ORALLY ONCE A DAY, NOTES: 01/25/202099 TAKING OMEPRAZOLE 40 MG CAPSULE DELAYED RELEASE 1 CAPSULE ORALLY ONCE A DAY, NOTES: 01/25/202099 TAKING INVOKANA 300 MG TABLET 1 TABLET ORALLY ONCE A DAY, NOTES: 01/25/20829 TAKING MONTELUKAST SODIUM 10 MG TABLET 1 TABLET ORALLY ONCE A DAY, NOTES: 01/25/202099 TAKING TRAZODONE HCL 100 MG TABLET 1 TABLET AT BEDTIME ORALLY ONCE A DAY, NOTES: 01/25/202099 TAKING LEVOCETIRIZINE DIHYDROCHLORIDE 5 MG TABLET 1 TABLET IN THE EVENING ORALLY ONCE A DAY, NOTES: 01/25/202099 TAKING VENLAFAXINE HCL 37.5 MG TABLET 1 TABLET WITH FOOD ORALLY BID, NOTES: 01/26/20829 TAKING PRAMIPEXOLE DIHYDROCHLORIDE 0.5 MG TABLET 2 TABLET ORALLY ONCE A DAY, NOTES: 01/25/202099 TAKING FUROSEMIDE 40 MG TABLET 1 TABLET ORALLY DAILY/PRN, NOTES: PT TAKES PRN TAKING JANUVIA 100 MG TABLET TAKE 1 TABLET EVERY DAY , NOTES: 01/25/20829 TAKING DRISDOL 1.25 MG (35094 UT) CAPSULE 1 CAPSULE ORALLY WEEKLY, NOTES: 01/23/20 TAKING LIDOCAINE HCL 5 % CREAM DIRECTED EXTERNALLY THREE TIMES DAILY NEEDED, NOTES: 2-3 DAYS AGO TAKING TOUJEO SOLOSTAR 300 UNIT/ML SOLUTION PEN-INJECTOR 100 UNITS SUBCUTANEOUS BEFORE BEDTIME, NOTES: 01/25/20829 TAKING AMITRIPTYLINE HCL 10 MG TABLET TAKE 2 TABLETS ONE TIME DAILY , NOTES: 01/25/20 2100 TAKING GABAPENTIN 300 MG CAPSULE 1 CAPSULE ORALLY THREE TIMES DAILY, NOTES: 01/26/20 0830 NOT-TAKING DIFLUCAN 150 MG TABLET 1 TABLET ORALLY ONCE DAILY, REPEAT IN 72 HOURS NOT-TAKING LEVOCETIRIZINE DIHYDROCHLORIDE 5 MG TABLET 1 TABLET IN THE EVENING ORALLY ONCE A DAY MEDICATION LIST REVIEWED AND RECONCILED WITH THE PATIENT PAST MEDICAL HISTORY FIBROMYALGIA DIABETES DYSTHYMIA INSOMNIA SINUSITIS/ALLERGIC RHINITIS GERD ANXIETY HERNIATED DISCS CERVICAL SPINE ALLERGIES N.K.D.A. SURGICAL HISTORY GALLBLADDER REMOVED RIGHT KNEE BILAT HANDS CARPEL TUNNEL PARTIAL HYSTERECTOMY RIGHT ARM LUMP REMOVAL FAMILY HISTORY FATHER: 82 YRS MOTHER: 62 YRS, DIAGNOSED WITH OTHER MALIGNANT NEOPLASM OF UNSPECIFIED SITE 2 BROTHER(S) , 1 SISTER(S) - HEALTHY. 1 SON(S) , 1 DAUGHTER(S) - HEALTHY. ALL SIBLINGS ARE DIABETICSISTER - THYROID DISEASEMOTHER - CANCER OF LYMPH NODESFATHER - COPD. SOCIAL HISTORY GENERAL: TOBACCO USE ARE YOU A:FORMER SMOKER QUIT 2007 HIV / HEP-C SCREENING HIV TEST OFFERED TO PATIENT:YES DATE OFFERED:12/26/2019 TEST ACCEPTED:NO HEP-C TEST OFFERED TO PATIENT:NO REASON:PATIENT DECLINED BROCHURE PROVIDED TO PATIENTYES OTHERS AT HOME: SPOUSE, CHILD, GRANDCHILDREN. EDUCATION LEVEL OF EDUCATION:FINISHED HIGH SCHOOL DIET: REGULAR. LANGUAGE LANGUAGES SPOKEN:TAJIK DOMESTIC VIOLENCE DO YOU FEEL SAFE IN YOUR ENVIRONMENT?YES BMI CARE GOAL FOLLOW-UP ABOVE NORMAL BMI FOLLOW-UPDIETARY MANAGEMENT EDUCATION, GUIDANCE, AND COUNSELING, DIETARY NEEDS EDUCATION RECREATIONAL DRUG USE DRUG USE?NO PATIENT DENIES ABUSE OR MISSUSED OF ANY MEDICATION DENIES PATIENT DENIES USE OF ANY ILLEGAL SUBSTANCE INCLUDING MARIJUANA OR COCAINE DENIES EXERCISE: WALKS. LEARNING BARRIERS / SPECIAL NEEDS CHANGE FROM LAST VISIT?NO BARRIERS TO LEARNING?NO HEARING IMPAIRED?NO VISION IMPAIRED?YES COGNITIVELY IMPAIRED?NO :CORRECTIVE LENSES READINESS TO LEARN?YES LEARNING PREFERENCES?NO LEARNING CAPABILITIES PRESENT?YES EMOTIONAL BARRIERS?NO SPECIAL DEVICES?YES :CANE, WALKER ONLY USES WHEN NEEDED REAL ESTATE BROKER ASSOCIATE NEEDED?NO PAIN CLINIC PFS, CLERGY, PUBLIC HEALTH REFERRALS PFS REFERRAL NEEDED?NO CLERGY REFERRAL NEEDED?NO PUBLIC HEALTH REFERRAL NEEDED?NO WAS THE PROVIDER NOTIFIED OF ANY PERTINENT INFO?YES HAS THE PATIENT BEEN EDUCATED REGARDING HIS/HER PLAN OF CARE?YES HAS THE PATIENT BEEN EDUCATED REGARDING PAIN, THE RISK FOR PAIN, THE IMPORTANCE OF EFFECTIVE PAIN MANAGEMENT, AND THE PAIN ASSESSMENT PROCESS?YES LATEX QUESTIONNAIRE LATEX ALLERGY : HAVE YOU EVER DEVELOPED ANY TYPE OF REACTION AFTER HANDLING LATEX PRODUCTS SUCH RUBBER GLOVES, CONDOMS, DIAPHRAGMS, BALLOONS, SOCKS, OR UNDERWEAR?NO LATEX ALLERGY : HAVE YOU EVER DEVELOPED ANY TYPE OF REACTION DURING OR AFTER DENTAL APPOINTMENT, VAGINAL/RECTAL EXAMINATION, SURGICAL PROCEDURE, OR ANY OTHER EXPOSURE?NO DATE ASKED : 12/26/2019 LATEX RISK : HAVE YOU EVER HAD ANY DIFFICULTY BREATHING OR HIVES AFTER EATING OR HANDLING ANY FRUITS, OR VEGETABLES; SUCH KIWI, BANANAS, STONE FRUITS, OR CHESTNUTSNO LATEX RISK : DO YOU HAVE A PREVIOUS PERSONAL HISTORY OF MORE THAN NINE SURGERIES, SPINA BIFIDA, OR REPEATED CATHERIZATIONS? NO LATEX RISK : ARE YOU FREQUENTLY EXPOSED TO LATEX PRODUCTS IN YOUR OCCUPATION?NO CAFFEINE CAFFEINE USE?YES HOW OFTEN AND HOW MUCH? DIET PEPSI ADVANCE DIRECTIVE ADVANCE DIRECTIVE DISCUSSED WITH PATIENT:YES PT STATES SHE HAS A HCP- SON CYNTHIA MUNOZ [phone] JAINISM [id number] RELIGIOUS MARITAL STATUS: . ALCOHOL SCREENING DID YOU HAVE A DRINK CONTAINING ALCOHOL IN THE PAST YEAR?YES HOW OFTEN DID YOU HAVE SIX OR MORE DRINKS ON ONE OCCASION IN THE PAST YEAR?NEVER (0 POINTS) HOW MANY DRINKS DID YOU HAVE ON A TYPICAL DAY WHEN YOU WERE DRINKING IN THE PAST YEAR?1 OR 2 (0 POINTS) HOW OFTEN DID YOU HAVE A DRINK CONTAINING ALCOHOL IN THE PAST YEAR?MONTHLY OR LESS (1 POINT) POINTS1 INTERPRETATIONNEGATIVE OCCUPATION: DISABLED. SEXUAL HX HAD SEX IN THE LAST 12 MONTHS (VAGINAL, ORAL, OR ANAL)?NO HAVE YOU EVER HAD AN STD?NO REVIEWED WITH PATIENT 12/15/2019 5092 JSPRE-SCREENING CALL DONE 01/17/20 EM. HOSPITALIZATION/MAJOR DIAGNOSTIC PROCEDURE SURGERIES CHILD BOIL TO LEFT BUTTOCKS REVIEW OF SYSTEMS REVIEWED BY: PROVIDER: . CONSTITUTIONAL: ANY CHANGE IN YOUR MEDICAL CONDITION? NO . CHILLS NO . FEVER NO . INFECTION: DO YOU HAVE NEW INFECTIONS? NO . DO YOU HAVE HISTORY OF MRSA? NO . MUSCULOSKELETAL: ANY NEW PATTERNS OF PAIN OR NUMBNESS? NO . GASTROENTEROLOGY: ANY NEW CHANGE IN BOWEL CONTROL? NO . GENITOURINARY: ANY NEW CHANGE IN BLADDER CONTROL? NO . IS THERE A CHANCE YOU COULD BE ? NO . HEMATOLOGY/LYMPH: DO YOU TAKE ANY BLOOD THINNERS? (FOR EXAMPLE- COUMADIN, PLAVIX, AGGRENOX, PLATEL, PRADAXA, OR XARELTO) NO . WHEN WAS YOUR LAST DOSE? DATE: TIME: . NEUROLOGY: HAVE YOU FALLEN IN THE PAST 12 MONTHS? YES . ANY NEW EXTREMITY NUMBNESS OR WEAKNESS? YES . CARDIOLOGY: DO YOU HAVE A PACEMAKER OR DEFIBRILLATOR? NO . RESPIRATORY: HAVE YOU BEEN SICK IN THE PAST WEEK? NO . FEVER NO . FLU LIKE SYMPTOMS? NO . COUGH NO . INTEGUMENTARY: DO YOU HAVE ANY RASHES OR OPEN SORES? NO . ALLERGIC/IMMUNO: ARE YOU ALLERGIC TO IV DYE? NO . ANY NEW ALLERGIES? NO . PSYCHIATRIC: DO YOU HAVE THOUGHTS OF HURTING YOURSELF OR SOMEONE ELSE? NO . ARE YOU ABUSED, NEGLECTED, OR IN AN UNSAFE ENVIRONMENT? NO . ENDOCRINOLOGY: ARE YOU DIABETIC? YES - FSBS 182 AT 0830 . OTHER: DO YOU NEED ANY PRESCRIPTIONS? NO . IF YES, PLEASE LIST: ____ . ANY NEW PROBLEMS WITH YOUR MEDICATIONS? NO . WHEN DID YOU LAST EAT? 01/25/20 1745 . WHEN DID YOU LAST DRINK? 01/26/20 1000 . WHAT DID YOU LAST DRINK? WATER . NAME OF PERSON DRIVING YOU HOME? CYNTHIA MUNOZ . DO YOU HAVE ANY OTHER QUESTIONS OR CONCERNS NO . VITAL SIGNS WT 326.4 LBS, HT 66 IN, BMI 52.68 INDEX, BP 162/74 MM HG, HR 98 /MIN, RR 19 /MIN, TEMP 96.8 F, OXYGEN SAT % 96%, NA INITIALS MS 1314, REVIEWED BY: CHRIS. ASSESSMENTS MYALGIA, OTHER SITE - M79.18 (PRIMARY) PROCEDURES PN TRIGGER POINT INJECTION WITH STEROIDS PRE PROCEDURE DIAGNOSIS 1. MYALGIA 2. PAIN AT BILATERAL THORACIC AREA. POST PROCEDURE DIAGNOSIS 1. MYALGIA 2. PAIN AT BILATERAL THORACIC AREA. PROCEDURE TRIGGER POINT INJECTION AT RIGHT AND LEFT THORACIC AREA. SURGEON DR. MAURICIO JONES MANAGER ALLIANCE NONE ANESTHESIA LOCAL PRE PROCEDURE NOTE THE PATIENT HAS A HISTORY OF CHRONIC PAIN AT THE RIGHT AND LEFT THORACIC AREA. I EVALUATED THE PATIENT AND REVIEWED THE CHART. THERE IS EVIDENCE OF BANDS OF TISSUE WITH RESTRICTION OF MOVEMENT AND PRESENCE OF TRIGGER POINT AT THE AFFECTED AREA. I WENT OVER THE RISKS, ALTERNATIVES, AND BENEFITS ASSOCIATED WITH THIS PROCEDURE. THE PATIENT WOULD LIKE TO PROCEED AND GIVE CONSENT TO PERFORMED THE PROCEDURE. THE PATIENT DENIES UNEXPLAINABLE WEIGHT LOSS, FEVER, CHILLS, OR NEW CHANGES IN URINARY OR BOWEL CONTROL DESCRIPTION OF PROCEDURE THE PATIENT WAS BROUGHT TO THE PROCEDURE ROOM AND PLACED IN THE SITTING POSITION. THE AREA WAS CLEANED WITH ALCOHOL. THE PROCEDURE WAS DONE USING ASEPTIC STERILE TECHNIQUE. I CHECKED LATERALITY AND THE LEVEL WHERE THE PROCEDURE WAS GOING TO BE PERFORMED WITH THE PATIENT AND THE SUPPORTING STAFF AT THE MOMENT OF THE TIME OUT IN THE PROCEDURE ROOM. USING A 25-GAUGE NEEDLE, TRIGGER POINTS WERE INJECTED AT THE RIGHT AND LEFT THORACIC AREA WITH A TOTAL OF 40 ML OF BUPIVACAINE 0.25% AND KENALOG 40 MG. THERE WAS NO EVIDENCE OF BLOOD, PARESTHESIA OR CEREBROSPINAL FLUID DURING THE PROCEDURE. THE PATIENT WAS SENT TO THE RECOVERY ROOM. THE PATIENT WAS MOVING THE EXTREMITIES AND DOING WELL. THERE WAS NO COMPLICATION DURING THE PROCEDURE POST PROCEDURE NOTE THE PATIENT WILL BE SEEN IN A FOLLOW UP IN THE NEXT FEW WEEKS. INSTRUCTIONS WERE GIVEN, QUESTIONS WERE ANSWERED, AND THE PATIENT EXPRESSED UNDERSTANDING AND AGREES WITH THE PLAN. I, ANTONIETTA DUBON, DOCUMENTED THE ABOVE INFORMATION ACTING A SCRIBE FOR DR. JONES. I HAVE REVIEWED THE ABOVE DOCUMENT, WRITTEN BY ANTONIETTA DUBON SCRIBDevonte AND I VERIFY THAT IT IS ACCURATE. PROCEDURE CODES 69481 INJ TRIGGER POINT / MUSCL DISPOSITION & COMMUNICATION FOLLOW UP 3 WEEKS ELECTRONICALLY SIGNED BY MAURICIO JONES MD, MD ON 02/01/2020 AT 11:30 AM EDT DISCLAIMER : THIS IS A VISIT SUMMARY EXTRACTED FROM THE [employer] CHART. IT IS NOT A COPY OF THE [facility] PROGRESS NOTE. MTDD
== END ==
LOC: M PAIN 13:00
PROVIDERS: ATTEND Anesthesiology
DX: M79.18 Myalgia, other site (principal); E11.9 Type 2 diabetes mellitus without complications; M79.7 Fibromyalgia; Z79.4 Long term (current) use of insulin; Z79.899 Other long term (current) drug therapy; Z87.891 Personal history of nicotine dependence
CPT/HCPCS: 20552; J3301

== ENCOUNTER → 2020-02-01 | Outpatient (CLI) | payer OTHER ==
[~2020-02-01] MED LIST changes: -BUPIVACAINE HCL 0.25% 30 ML VIAL As Ordered ONE; +LIDOCAINE 1% MDV 20ML VIAL As Ordered ONE; +LIDOCAINE 2% MDV 20 ML VIAL As Ordered ONE; +MIDAZOLAM INJ 2 MG/2 ML VIAL (J2250) As Ordered ONE; -TRIAMCINOLONE ACETONIDE SUSP 40 MG/ML VIAL (J3301) As Ordered ONE; +diphenhydrAMINE INJ 50MG/ML VIAL (J1200) As Ordered ONE; +fentaNYL 100 MCG/2 ML INJECTION (J3010) As Ordered ONE
[2020-02-01 13:12] VITALS: BP 147/64
--- NOTE | 2020-02-02 15:10 | IRHP ---
[facility] IR Pre-Procedure H & P General Date of Service: Feb 01, 2020 Procedure: Same Day Surgery Interval History and Physical I have seen the patient and reviewed last H & P performed within 30 days. There is no significant interval change. History of Present Illness Chief Complaint The patient is a 59-year-old female admitted with a reason for visit of Varicose Veins. PRE-PROCEDURE DIAGNOSIS: VV HEART: normal rate. LUNGS: normal breathing at rest. ASA Classification ASA Classification: II-Mild systemic disease Mallampati Score: II NPO: Yes Problems with prior sedation: No Obstructive Sleep Apnea: No Plan moderate sedation Allergies Coded Allergies: No Known Allergies (Verified , 01/29/13) Home Medications Scheduled Canagliflozin (Invokana), 300 MG PO DAILY, (Reported) Furosemide (Furosemide), 40 MG PO DAILY, (Reported) Gabapentin (Gabapentin), 400 MG PO QID, (Reported) Levocetirizine Dihydrochloride (Levocetirizine Dihydrochloride), 5 MG PO QHS, (Reported) Montelukast Sodium (Montelukast Sodium), 10 MG PO QHS, (Reported) Omeprazole (Omeprazole), 40 MG PO DAILY, (Reported) Ranitidine HCl (Ranitidine HCl), 1 TAB PO BID, (Reported) Trazodone HCl (Trazodone HCl), 100 MG PO QHS, (Reported) Venlafaxine HCl (Venlafaxine HCl ER), 150 MG PO QHS, (Reported) Venlafaxine HCl (Venlafaxine HCl), 37.5 MG PO BID, (Reported) Scheduled PRN [Tizanidine], PO PRN PRN for pain, (Reported) Miscellaneous Medications Amitriptyline HCl (Amitriptyline HCl), 100 MG PO, (Reported) Insulin Glargine,Hum.rec.anlog (Toujeo Solostar), 100 UNIT SC, (Reported) Pramipexole Dihydrochloride (Pramipexole Dihydrochlori), 0.5 MG PO, (Reported) Discontinued Medications Naproxen Sodium (Aleve), 220 MG PO PRN PRN for pain, (Reported) Discontinued Reason: Pt states not taking VS, I&O, 24H, Fishbone Vital Signs/I&O Vital Signs Date Time Temp Pulse Resp B/P (MAP) Pulse Ox O2 Delivery O2 Flow Rate FiO2 02/01/20 13:12 92 18 92 Room Air 02/01/20 10:20 2 02/01/20 08:59 98.2 DELIO RAMIREZ MD Feb 02, 2020 15:10
--- NOTE | 2020-02-02 15:11 | POST-OPPD ---
Postoperative Procedure Note Date Of Procedure: Feb 01, 2020 Time Of Procedure: 15:10 PREOPERATIVE DIAGNOSIS: varicose veins POSTOPERATIVE DIAGNOSIS: same FINDINGS: same PROCEDURE: left leg EVLT SURGEON: yao ANESTHESIA: mod sed ESTIMATED BLOOD LOSS: < 5 ml COMPLICATIONS: none POSTOPERATIVE CONDITION: stable DELIO RAMIREZ MD Feb 02, 2020 15:11
--- NOTE | 2020-02-02 16:57 | REP ---
IR Endovenous laser treatment for left leg varicose vein. IR Ultrasound of the left leg. IR Tumescent anesthesia under ultrasound guidance. IR moderate sedation. Clinical information: Left leg varicose veins. Incompetent left anterior accessory greater saphenous vein. Physician: Dr. Winter. Procedure: The patient was advised of the benefits, risks and alternatives of the procedure and informed consent was obtained. The time-out was performed with verification of the patient's name, MRN, site of procedure and type of procedure to be performed. The patient was positioned in the supine position on the table. The site was prepped and draped in the usual sterile fashion. Moderate sedation was performed by the physician including the presence of an independent trained observer who assisted in monitoring the patient's level of consciousness and physiologic status. Following the administration of fentanyl and Versed , the physician spent 60 minutes of continuous face to face time with the patient. Ultrasound of the left lower extremity demonstrates dilated left anterior accessory greater saphenous vein with greater than 0.5 seconds reflux. The access site was identified with ultrasound and anesthetized with lidocaine. The anterior accessory GSV was accessed under ultrasound guidance at the distal thigh, using a micro introducer needle. An 018 cope wire was advanced into the vein. Incision at the access site was made using a scalpel. The needle was removed and an access catheter was advanced over the wire under ultrasound guidance to > 2.5 centimeters from the saphenofemoral junction. The wire was removed and the laser fiber was advanced through the catheter under ultrasound guidance and positioned with the tip located 2.5 cm from the saphenous femoral junction. Tumescent anesthesia was then injected under ultrasound guidance along the entire length of the vein to be treated. Repeat ultrasound of the saphenofemoral junction was used to confirm positioning of the tip of the laser back 2.5 cm from junction. The patient was positioned in Trendelenburg. The laser was then activated and under ultrasound guidance used to laser the anterior accessory greater saphenous vein back to the access point. Simultaneous manual compression was applied to the treated vein. Treatment: Wattage: 7 Time: 127 seconds Pullback rate 1 cm every 7 seconds Total Energy deposited 892 joules Treatment 50 joules per centimeter of vein. The fiber, catheter and sheath were removed, pressure held and hemostasis achieved. A sterile dressing was applied to the site. Compression dressing was then applied to the leg, from ankle to groin. The patient tolerated the procedure well and was returned to the PRU in stable condition. EBL: < 5 ml. Complications: None. Impression: 1. Ultrasound demonstrates dilated left anterior accessory greater saphenous vein with greater than 0.5 seconds reflux. 2. Successful left anterior accessory greater saphenous vein ablation with laser. 3. Compression dressing applied from ankle to groin. Patient to return in 1 week for follow up ultrasound at which time the compression dressing will be switched to stockings. Thank you this referral. Kayla Vinson Electronically Signed by Allison Winter MD 02/02/2020 04:56 P
== END ==
LOC: M IRPRO 08:31
PROVIDERS: ATTEND Radiology Diagnostic Radiology
DX: I83.892 Varicose veins of left lower extremity with other complications (principal); Z79.4 Long term (current) use of insulin; Z79.899 Other long term (current) drug therapy
CPT/HCPCS: 36478; 76940; 99152; 99153; J1200; J2250; J3010

== ENCOUNTER → 2020-02-08 | Outpatient (CLI) | payer OTHER ==
[~2020-02-08] MED LIST changes: -LIDOCAINE 1% MDV 20ML VIAL As Ordered ONE; -LIDOCAINE 2% MDV 20 ML VIAL As Ordered ONE; -MIDAZOLAM INJ 2 MG/2 ML VIAL (J2250) As Ordered ONE; -diphenhydrAMINE INJ 50MG/ML VIAL (J1200) As Ordered ONE; -fentaNYL 100 MCG/2 ML INJECTION (J3010) As Ordered ONE
--- NOTE | 2020-02-08 18:46 | REP ---
Clinical: Left lower extremity pain. Status post endovascular laser ablation therapy (EVLT). Technique: Real time juárez scale and color Doppler evaluation using linear high frequency transducer. Findings: Ultrasound examination of the left lower extremity deep venous structures from the common femoral vein to the popliteal vein demonstrates normal compressibility and flow characteristics without evidence for thrombosis. Impression: No evidence for deep venous thrombosis. Electronically Signed by Klaus Vallecillo MD 02/08/2020 06:37 P
--- NOTE | 2020-02-14 08:28 | IRPN ---
[facility] IR Progress Note IR Progress Note DATE: Feb 14, 2020 I personally reviewed the post EVLT ultrasound performed 02/08/2020. Good posttreatment results with thrombosis of the treated right lesser saphenous vein. No deep vein thrombosis. Schedule routine follow-up in one month. Allergies Coded Allergies: No Known Allergies (Verified , 01/29/13) DELIO RAMIREZ MD Feb 14, 2020 08:28
--- NOTE | 2020-02-14 08:33 | IRPN ---
[facility] IR Progress Note IR Progress Note DATE: Feb 14, 2020 I personally reviewed the post EVLT ultrasound performed 02/08/2020. Successful left anterior accessory greater saphenous vein ablation. No deep vein thrombosis. Follow-up in 6 months. Allergies Coded Allergies: No Known Allergies (Verified , 01/29/13) DELIO RAMIREZ MD Feb 14, 2020 08:33
== END ==
LOC: M RAD 10:29
PROVIDERS: ATTEND Radiology Diagnostic Radiology
DX: I83.812 Varicose veins of left lower extremity with pain (principal)

== ENCOUNTER → 2020-02-24 | Outpatient (CLI) | payer OTHER, MEDICARE ==
--- NOTE | 2020-02-24 23:14 | ECWPNPC ---
PATIENT NAME: KLAUS MUNOZ : 1960 GENDER: FEMALE VISIT DATE: 02/24/2020 DISCHARGE DATE: 02/24/20 1051 VISIT LOCKED DATE TIME: PHYSICIAN: ROEL CORBETT RESOURCE: ROEL CORBETT REASON FOR APPOINTMENT 1. POST PROCEDURE HISTORY OF PRESENT ILLNESS HISTORY OF PRESENT ILLNESS: HERE FOR POST PROCEDURE FOLLOW-UP. HAD TRIGGER POINT INJECTIONS, BILATERAL THORACIC REGION ON 01/26/2020. REPORTING MARKED REDUCTION IN PAIN FOR 2 WEEKS AND THEN PAIN HAS GRADUALLY RETURNED TO BASELINE. REPORTING NIGHTTIME AWAKENINGS DUE TO BACK PAIN WITH MOVEMENT. RATING PAIN LEVEL A 8/10 VAS. DISCUSSED MEDICATION AND TREATMENT OPTIONS. PAIN THE PATIENT DESCRIBES THE PAIN... FALL RISK SCREENING: SCREENING :NO FALLS REPORTED IN THE LAST YEAR CURRENT MEDICATIONS TAKING TIZANIDINE HCL 4 MG TABLET TK 1 T PO TID PRN ORAL TAKING LEVOCETIRIZINE DIHYDROCHLORIDE 5 MG TABLET 1 TABLET IN THE EVENING ORALLY ONCE A DAY TAKING VENLAFAXINE HCL 37.5 MG TABLET 1 TABLET WITH FOOD ORALLY BID TAKING DRISDOL 1.25 MG (49105 UT) CAPSULE 1 CAPSULE ORALLY WEEKLY TAKING LIDOCAINE HCL 5 % CREAM DIRECTED EXTERNALLY THREE TIMES DAILY NEEDED TAKING AMITRIPTYLINE HCL 10 MG TABLET TAKE 2 TABLETS ONE TIME DAILY TAKING GABAPENTIN 300 MG CAPSULE 1 CAPSULE ORALLY THREE TIMES DAILY TAKING VENLAFAXINE HCL ER 150 MG CAPSULE EXTENDED RELEASE 24 HOUR 1 CAPSULE WITH FOOD ORALLY ONCE A DAY TAKING TRAZODONE HCL 100 MG TABLET 1 TABLET AT BEDTIME ORALLY ONCE A DAY TAKING TOUJEO SOLOSTAR 300 UNIT/ML SOLUTION PEN-INJECTOR 100 UNITS SUBCUTANEOUS BEFORE BEDTIME TAKING OMEPRAZOLE 40 MG CAPSULE DELAYED RELEASE 1 CAPSULE ORALLY ONCE A DAY TAKING PRAMIPEXOLE DIHYDROCHLORIDE 0.5 MG TABLET 2 TABLET ORALLY ONCE A DAY TAKING MONTELUKAST SODIUM 10 MG TABLET 1 TABLET ORALLY ONCE A DAY TAKING INVOKANA 300 MG TABLET 1 TABLET ORALLY ONCE A DAY TAKING FUROSEMIDE 40 MG TABLET 1 TABLET ORALLY DAILY/PRN TAKING FAMOTIDINE 40 MG TABLET 1 TABLET AT BEDTIME ORALLY ONCE A DAY TAKING JANUVIA 100 MG TABLET TAKE 1 TABLET EVERY DAY ORALLY ONCE A DAY TAKING DIFLUCAN 150 MG TABLET 1 TABLET ORALLY ONCE DAILY DIRECTED, REPEAT IN 72 HOURS NOT-TAKING LEVOCETIRIZINE DIHYDROCHLORIDE 5 MG TABLET 1 TABLET IN THE EVENING ORALLY ONCE A DAY MEDICATION LIST REVIEWED AND RECONCILED WITH THE PATIENT PAST MEDICAL HISTORY FIBROMYALGIA DIABETES DYSTHYMIA INSOMNIA SINUSITIS/ALLERGIC RHINITIS GERD ANXIETY HERNIATED DISCS CERVICAL SPINE VARICOSE VEINS ALLERGIES N.K.D.A. SURGICAL HISTORY GALLBLADDER REMOVED RIGHT KNEE BILAT HANDS CARPEL TUNNEL PARTIAL HYSTERECTOMY RIGHT ARM LUMP REMOVAL PROCEDURE ON VEINS LEFT LEG 01/2020 FAMILY HISTORY FATHER: 82 YRS MOTHER: 62 YRS, DIAGNOSED WITH OTHER MALIGNANT NEOPLASM OF UNSPECIFIED SITE 2 BROTHER(S) , 1 SISTER(S) - HEALTHY. 1 SON(S) , 1 DAUGHTER(S) - HEALTHY. ALL SIBLINGS ARE DIABETICSISTER - THYROID DISEASEMOTHER - CANCER OF LYMPH NODESFATHER - COPD. SOCIAL HISTORY GENERAL: TOBACCO USE ARE YOU A:FORMER SMOKER QUIT 2007 HIV / HEP-C SCREENING HIV TEST OFFERED TO PATIENT:YES DATE OFFERED:12/26/2019 TEST ACCEPTED:NO HEP-C TEST OFFERED TO PATIENT:NO REASON:PATIENT DECLINED BROCHURE PROVIDED TO PATIENTYES OTHERS AT HOME: SPOUSE, CHILD, GRANDCHILDREN. EDUCATION LEVEL OF EDUCATION:FINISHED HIGH SCHOOL DIET: REGULAR. LANGUAGE LANGUAGES SPOKEN:SLOVENIAN DOMESTIC VIOLENCE DO YOU FEEL SAFE IN YOUR ENVIRONMENT?YES NEW PATIENT PAIN DIARY PATIENT DESCRIBES PAIN :BURNING, HAVE IT ALL THE TIME, THROBBING, SHOOTING FROM 0-10, WHAT LEVEL IS YOUR PAIN TODAY?8 BMI CARE GOAL FOLLOW-UP ABOVE NORMAL BMI FOLLOW-UPDIETARY MANAGEMENT EDUCATION, GUIDANCE, AND COUNSELING, DIETARY NEEDS EDUCATION RECREATIONAL DRUG USE DRUG USE?NO PATIENT DENIES ABUSE OR MISSUSED OF ANY MEDICATION DENIES PATIENT DENIES USE OF ANY ILLEGAL SUBSTANCE INCLUDING MARIJUANA OR COCAINE DENIES EXERCISE: WALKS. LEARNING BARRIERS / SPECIAL NEEDS CHANGE FROM LAST VISIT?NO BARRIERS TO LEARNING?NO HEARING IMPAIRED?NO VISION IMPAIRED?YES COGNITIVELY IMPAIRED?NO :CORRECTIVE LENSES READINESS TO LEARN?YES LEARNING PREFERENCES?NO LEARNING CAPABILITIES PRESENT?YES EMOTIONAL BARRIERS?NO SPECIAL DEVICES?YES :CANE, WALKER ONLY USES WHEN NEEDED COST RECOVERY TECHNICIAN NEEDED?NO PAIN CLINIC PFS, CLERGY, PUBLIC HEALTH REFERRALS PFS REFERRAL NEEDED?NO CLERGY REFERRAL NEEDED?NO PUBLIC HEALTH REFERRAL NEEDED?NO WAS THE PROVIDER NOTIFIED OF ANY PERTINENT INFO?YES HAS THE PATIENT BEEN EDUCATED REGARDING HIS/HER PLAN OF CARE?YES HAS THE PATIENT BEEN EDUCATED REGARDING PAIN, THE RISK FOR PAIN, THE IMPORTANCE OF EFFECTIVE PAIN MANAGEMENT, AND THE PAIN ASSESSMENT PROCESS?YES LATEX QUESTIONNAIRE LATEX ALLERGY : HAVE YOU EVER DEVELOPED ANY TYPE OF REACTION AFTER HANDLING LATEX PRODUCTS SUCH RUBBER GLOVES, CONDOMS, DIAPHRAGMS, BALLOONS, SOCKS, OR UNDERWEAR?NO LATEX ALLERGY : HAVE YOU EVER DEVELOPED ANY TYPE OF REACTION DURING OR AFTER DENTAL APPOINTMENT, VAGINAL/RECTAL EXAMINATION, SURGICAL PROCEDURE, OR ANY OTHER EXPOSURE?NO DATE ASKED : 12/26/2019 LATEX RISK : HAVE YOU EVER HAD ANY DIFFICULTY BREATHING OR HIVES AFTER EATING OR HANDLING ANY FRUITS, OR VEGETABLES; SUCH KIWI, BANANAS, STONE FRUITS, OR CHESTNUTSNO LATEX RISK : DO YOU HAVE A PREVIOUS PERSONAL HISTORY OF MORE THAN NINE SURGERIES, SPINA BIFIDA, OR REPEATED CATHERIZATIONS? NO LATEX RISK : ARE YOU FREQUENTLY EXPOSED TO LATEX PRODUCTS IN YOUR OCCUPATION?NO CAFFEINE CAFFEINE USE?YES HOW OFTEN AND HOW MUCH? DIET PEPSI ADVANCE DIRECTIVE ADVANCE DIRECTIVE DISCUSSED WITH PATIENT:YES PT STATES SHE HAS A HCP- SON CYNTHIA MUNOZ [phone] DENOMINATIONAL [id number] [facility] MARITAL STATUS: . ALCOHOL SCREENING DID YOU HAVE A DRINK CONTAINING ALCOHOL IN THE PAST YEAR?YES HOW OFTEN DID YOU HAVE SIX OR MORE DRINKS ON ONE OCCASION IN THE PAST YEAR?NEVER (0 POINTS) HOW MANY DRINKS DID YOU HAVE ON A TYPICAL DAY WHEN YOU WERE DRINKING IN THE PAST YEAR?1 OR 2 (0 POINTS) HOW OFTEN DID YOU HAVE A DRINK CONTAINING ALCOHOL IN THE PAST YEAR?MONTHLY OR LESS (1 POINT) POINTS1 INTERPRETATIONNEGATIVE OCCUPATION: DISABLED. SEXUAL HX HAD SEX IN THE LAST 12 MONTHS (VAGINAL, ORAL, OR ANAL)?NO HAVE YOU EVER HAD AN STD?NO REVIEWED WITH PATIENT 12/15/2019 1329 JSPRE-SCREENING CALL DONE 01/17/20 EM. HOSPITALIZATION/MAJOR DIAGNOSTIC PROCEDURE SURGERIES CHILD BOIL TO LEFT BUTTOCKS REVIEW OF SYSTEMS REVIEWED BY: PROVIDER: ROEL STEELE . CONSTITUTIONAL: ANY CHANGE IN YOUR MEDICAL CONDITION? YES - HAD PROCEDURE ON VEINS LEFT LEG . CHILLS NO . FEVER NO . INFECTION: DO YOU HAVE NEW INFECTIONS? NO . DO YOU HAVE HISTORY OF MRSA? NO . MUSCULOSKELETAL: ANY NEW PATTERNS OF PAIN OR NUMBNESS? NO . GASTROENTEROLOGY: ANY NEW CHANGE IN BOWEL CONTROL? NO . GENITOURINARY: ANY NEW CHANGE IN BLADDER CONTROL? NO . IS THERE A CHANCE YOU COULD BE ? NO . HEMATOLOGY/LYMPH: DO YOU TAKE ANY BLOOD THINNERS? (FOR EXAMPLE- COUMADIN, PLAVIX, AGGRENOX, PLATEL, PRADAXA, OR XARELTO) NO . WHEN WAS YOUR LAST DOSE? DATE: TIME: . NEUROLOGY: HAVE YOU FALLEN IN THE PAST 12 MONTHS? NO . ANY NEW EXTREMITY NUMBNESS OR WEAKNESS? NO . CARDIOLOGY: DO YOU HAVE A PACEMAKER OR DEFIBRILLATOR? NO . RESPIRATORY: HAVE YOU BEEN SICK IN THE PAST WEEK? NO . FEVER NO . FLU LIKE SYMPTOMS? NO . COUGH NO . INTEGUMENTARY: DO YOU HAVE ANY RASHES OR OPEN SORES? NO . ALLERGIC/IMMUNO: ARE YOU ALLERGIC TO IV DYE? NO . ANY NEW ALLERGIES? NO . PSYCHIATRIC: DO YOU HAVE THOUGHTS OF HURTING YOURSELF OR SOMEONE ELSE? NO . ARE YOU ABUSED, NEGLECTED, OR IN AN UNSAFE ENVIRONMENT? NO . ENDOCRINOLOGY: ARE YOU DIABETIC? YES . OTHER: DO YOU NEED ANY PRESCRIPTIONS? YES . IF YES, PLEASE LIST: PAIN MEDICINE . ANY NEW PROBLEMS WITH YOUR MEDICATIONS? NO . WHEN DID YOU LAST EAT? ____ . WHEN DID YOU LAST DRINK? ____ . WHAT DID YOU LAST DRINK? ____ . NAME OF PERSON DRIVING YOU HOME? ____ . DO YOU HAVE ANY OTHER QUESTIONS OR CONCERNS NO . VITAL SIGNS WT 324 LBS, HT 66 IN, BMI 52.29 INDEX, BP 169/72 MM HG, HR 98 /MIN, RR 18 /MIN, TEMP 96.0 F, OXYGEN SAT % 94%, NA INITIALS AW 0923, REVIEWED BY: CHRIS. EXAMINATION GENERAL EXAMINATION: GENERAL AWAKE,ALERT ,PLEASANT . PSYCH AFFECT NORMAL . LUNGS: LUNG JACK ARE CLEAR TO AUSCULTATION BILATERALLY. GOOD MOVEMENT OF AIR . HEART: S1, S2 IN A REGULAR RATE AND RHYTHM. NO SIGNIFICANT MURMURS, RUBS OR GALLOPS NOTED . MUSCULOSKELETAL: MULTIPLE AREAS OF TENDER SPOTS UPPER/LOWER TORSO INDICATIVE OF FIBROMYALGIA. THORACIC SPINE: TRIGGER POINTS:, ELICITED WITH PALPATION OVER MID THORACIC PARASPINAL MUSCLES WITH INCREASE IN PAIN NOTED WITH ROJM SPINE.. ASSESSMENTS MYALGIA, OTHER SITE - M79.18 (PRIMARY) TREATMENT MYALGIA, OTHER SITE NOTES: TPI BILAT THORACIC. PREVENTIVE MEDICINE PAIN CLINIC TEACHING: PROCEDURE TEACHING TRIGGER POINT INJECTION INFORMATION PRINTED AND REVIEWED WITH PATIENT. PT VERBALIZES UNDERSTANDING OF PROCEDURE AND VERBALIZES UNDERSATNDING OF PRE PROCEDURE INSTRUCTIONS REVIEWED. 02/24/2020 1051 NLJ. PROCEDURE CODES FA211 ESTABILISHED PATIENT [facility] CHARGE DISPOSITION & COMMUNICATION FOLLOW UP POST (REASON: TPI BILAT THORACIC) ELECTRONICALLY SIGNED BY ROEL STEELE, IVETTE ON 02/24/2020 AT 01:19 PM EDT DISCLAIMER : THIS IS A VISIT SUMMARY EXTRACTED FROM THE [facility] CHART. IT IS NOT A COPY OF THE [facility] PROGRESS NOTE. EUGENIO
== END ==
LOC: M PAIN 09:15
PROVIDERS: ATTEND Nurse Practitioner Family
DX: M79.18 Myalgia, other site (principal); M79.7 Fibromyalgia; E11.9 Type 2 diabetes mellitus without complications; Z79.4 Long term (current) use of insulin; Z79.899 Other long term (current) drug therapy; Z87.891 Personal history of nicotine dependence

== ENCOUNTER → 2020-03-22 | Outpatient (CLI) | payer OTHER, MEDICARE ==
[~2020-03-22] MED LIST changes: +BUPIVACAINE HCL 0.25% 10ML VIAL As Ordered ONE; +BUPIVACAINE HCL 0.25% 30ML VIAL As Ordered ONE
--- NOTE | 2020-03-28 00:41 | ECWPNPC ---
PATIENT NAME: KLAUS MUNOZ : 1960 GENDER: FEMALE VISIT DATE: 03/22/2020 DISCHARGE DATE: 03/22/20 1335 VISIT LOCKED DATE TIME: PHYSICIAN: MAURICIO JONES MD RESOURCE: MAURICIO JONES MD REASON FOR APPOINTMENT 1. TPI BILAT THORACIC. HISTORY OF PRESENT ILLNESS HISTORY OF PRESENT ILLNESS: PAIN THE PATIENT DESCRIBES THE PAIN... FALL RISK SCREENING: SCREENING :NO FALLS REPORTED IN THE LAST YEAR CURRENT MEDICATIONS TAKING TIZANIDINE HCL 4 MG TABLET TK 1 T PO TID PRN ORAL , NOTES: 2 WEEKS TAKING LEVOCETIRIZINE DIHYDROCHLORIDE 5 MG TABLET 1 TABLET IN THE EVENING ORALLY ONCE A DAY, NOTES: 03/21 9PM TAKING VENLAFAXINE HCL 37.5 MG TABLET 1 TABLET WITH FOOD ORALLY BID, NOTES: 03/21 9PM TAKING LIDOCAINE HCL 5 % CREAM DIRECTED EXTERNALLY THREE TIMES DAILY NEEDED, NOTES: 3 WEEKS TAKING AMITRIPTYLINE HCL 10 MG TABLET TAKE 2 TABLETS ONE TIME DAILY , NOTES: 03/21 9 TAKING GABAPENTIN 300 MG CAPSULE 1 CAPSULE ORALLY THREE TIMES DAILY, NOTES: 03/21 TAKING VENLAFAXINE HCL ER 150 MG CAPSULE EXTENDED RELEASE 24 HOUR 1 CAPSULE WITH FOOD ORALLY ONCE A DAY, NOTES: 03/21 9PM TAKING TRAZODONE HCL 100 MG TABLET 1 TABLET AT BEDTIME ORALLY ONCE A DAY, NOTES: 03/21PM TAKING TOUJEO SOLOSTAR 300 UNIT/ML SOLUTION PEN-INJECTOR 100 UNITS SUBCUTANEOUS BEFORE BEDTIME, NOTES: 03/21 9 TAKING OMEPRAZOLE 40 MG CAPSULE DELAYED RELEASE 1 CAPSULE ORALLY ONCE A DAY, NOTES: 03/21 9PM TAKING PRAMIPEXOLE DIHYDROCHLORIDE 0.5 MG TABLET 2 TABLET ORALLY ONCE A DAY, NOTES: 03/21 9PM TAKING MONTELUKAST SODIUM 10 MG TABLET 1 TABLET ORALLY ONCE A DAY, NOTES: 03/21 9PM TAKING INVOKANA 300 MG TABLET 1 TABLET ORALLY ONCE A DAY, NOTES: 03/21M TAKING FUROSEMIDE 40 MG TABLET 1 TABLET ORALLY DAILY/PRN, NOTES: 03/20 TAKING FAMOTIDINE 40 MG TABLET 1 TABLET AT BEDTIME ORALLY ONCE A DAY, NOTES: 03/21 9PM TAKING JANUVIA 100 MG TABLET TAKE 1 TABLET EVERY DAY ORALLY ONCE A DAY, NOTES: 03/21 9AM TAKING VITAMIN D3 125 MCG (5000 UT) CAPSULE DIRECTED ORALLY DAILY, NOTES: 03/21 9AM NOT-TAKING DIFLUCAN 150 MG TABLET 1 TABLET ORALLY ONCE DAILY DIRECTED, REPEAT IN 72 HOURS NOT-TAKING LEVOCETIRIZINE DIHYDROCHLORIDE 5 MG TABLET 1 TABLET IN THE EVENING ORALLY ONCE A DAY MEDICATION LIST REVIEWED AND RECONCILED WITH THE PATIENT PAST MEDICAL HISTORY FIBROMYALGIA DIABETES DYSTHYMIA INSOMNIA SINUSITIS/ALLERGIC RHINITIS GERD ANXIETY HERNIATED DISCS CERVICAL SPINE VARICOSE VEINS ALLERGIES N.K.D.A. SURGICAL HISTORY GALLBLADDER REMOVED RIGHT KNEE BILAT HANDS CARPEL TUNNEL PARTIAL HYSTERECTOMY RIGHT ARM LUMP REMOVAL PROCEDURE ON VEINS LEFT LEG 01/2020 FAMILY HISTORY FATHER: 82 YRS MOTHER: 62 YRS, DIAGNOSED WITH OTHER MALIGNANT NEOPLASM OF UNSPECIFIED SITE 2 BROTHER(S) , 1 SISTER(S) - HEALTHY. 1 SON(S) , 1 DAUGHTER(S) - HEALTHY. ALL SIBLINGS ARE DIABETICSISTER - THYROID DISEASEMOTHER - CANCER OF LYMPH NODESFATHER - COPD. SOCIAL HISTORY GENERAL: TOBACCO USE ARE YOU A:FORMER SMOKER QUIT 2007 LATEX QUESTIONNAIRE LATEX ALLERGY : HAVE YOU EVER DEVELOPED ANY TYPE OF REACTION AFTER HANDLING LATEX PRODUCTS SUCH RUBBER GLOVES, CONDOMS, DIAPHRAGMS, BALLOONS, SOCKS, OR UNDERWEAR?NO LATEX ALLERGY : HAVE YOU EVER DEVELOPED ANY TYPE OF REACTION DURING OR AFTER DENTAL APPOINTMENT, VAGINAL/RECTAL EXAMINATION, SURGICAL PROCEDURE, OR ANY OTHER EXPOSURE?NO LATEX RISK : HAVE YOU EVER HAD ANY DIFFICULTY BREATHING OR HIVES AFTER EATING OR HANDLING ANY FRUITS, OR VEGETABLES; SUCH KIWI, BANANAS, STONE FRUITS, OR CHESTNUTSNO LATEX RISK : DO YOU HAVE A PREVIOUS PERSONAL HISTORY OF MORE THAN NINE SURGERIES, SPINA BIFIDA, OR REPEATED CATHERIZATIONS? NO LATEX RISK : ARE YOU FREQUENTLY EXPOSED TO LATEX PRODUCTS IN YOUR OCCUPATION?NO DATE ASKED : 03/21/2020 BMI CARE GOAL FOLLOW-UP ABOVE NORMAL BMI FOLLOW-UPDIETARY MANAGEMENT EDUCATION, GUIDANCE, AND COUNSELING, DIETARY NEEDS EDUCATION ALCOHOL SCREENING DID YOU HAVE A DRINK CONTAINING ALCOHOL IN THE PAST YEAR?YES HOW OFTEN DID YOU HAVE SIX OR MORE DRINKS ON ONE OCCASION IN THE PAST YEAR?NEVER (0 POINTS) HOW MANY DRINKS DID YOU HAVE ON A TYPICAL DAY WHEN YOU WERE DRINKING IN THE PAST YEAR?1 OR 2 (0 POINTS) HOW OFTEN DID YOU HAVE A DRINK CONTAINING ALCOHOL IN THE PAST YEAR?MONTHLY OR LESS (1 POINT) POINTS1 INTERPRETATIONNEGATIVE RECREATIONAL DRUG USE DRUG USE?NO PATIENT DENIES ABUSE OR MISSUSED OF ANY MEDICATION DENIES PATIENT DENIES USE OF ANY ILLEGAL SUBSTANCE INCLUDING MARIJUANA OR COCAINE DENIES CAFFEINE CAFFEINE USE?YES HOW OFTEN AND HOW MUCH? DIET PEPSI SEXUAL HX HAD SEX IN THE LAST 12 MONTHS (VAGINAL, ORAL, OR ANAL)?NO HAVE YOU EVER HAD AN STD?NO HIV / HEP-C SCREENING HIV TEST OFFERED TO PATIENT:YES DATE OFFERED:12/26/2019 TEST ACCEPTED:NO HEP-C TEST OFFERED TO PATIENT:NO REASON:PATIENT DECLINED BROCHURE PROVIDED TO PATIENTYES MANDAEN [id number] MANDAEN LANGUAGE LANGUAGES SPOKEN:PORTUGUESE EDUCATION LEVEL OF EDUCATION:FINISHED HIGH SCHOOL LEARNING BARRIERS / SPECIAL NEEDS CHANGE FROM LAST VISIT?NO BARRIERS TO LEARNING?NO HEARING IMPAIRED?NO VISION IMPAIRED?YES COGNITIVELY IMPAIRED?NO :CORRECTIVE LENSES READINESS TO LEARN?YES LEARNING PREFERENCES?NO LEARNING CAPABILITIES PRESENT?YES EMOTIONAL BARRIERS?NO SPECIAL DEVICES?YES :CANE, WALKER ONLY USES WHEN NEEDED SPINE SPECIALIST NEEDED?NO DOMESTIC VIOLENCE DO YOU FEEL SAFE IN YOUR ENVIRONMENT?YES OCCUPATION: DISABLED. DIET: REGULAR. EXERCISE: WALKS. MARITAL STATUS: . OTHERS AT HOME: SPOUSE, CHILD, GRANDCHILDREN. NEW PATIENT PAIN DIARY TODAY'S VISIT 03/22/2020 PATIENT DESCRIBES PAIN :BURNING, HAVE IT ALL THE TIME, THROBBING, SHOOTING FROM 0-10, WHAT LEVEL IS YOUR PAIN TODAY?6 PAIN CLINIC PFS, CLERGY, PUBLIC HEALTH REFERRALS PFS REFERRAL NEEDED?NO CLERGY REFERRAL NEEDED?NO PUBLIC HEALTH REFERRAL NEEDED?NO WAS THE PROVIDER NOTIFIED OF ANY PERTINENT INFO?YES HAS THE PATIENT BEEN EDUCATED REGARDING HIS/HER PLAN OF CARE?YES HAS THE PATIENT BEEN EDUCATED REGARDING PAIN, THE RISK FOR PAIN, THE IMPORTANCE OF EFFECTIVE PAIN MANAGEMENT, AND THE PAIN ASSESSMENT PROCESS?YES ADVANCE DIRECTIVE ADVANCE DIRECTIVE DISCUSSED WITH PATIENT:YES PT STATES SHE HAS A HCP- SON CYNTHIA MUNOZ [phone] HOSPITALIZATION/MAJOR DIAGNOSTIC PROCEDURE SURGERIES CHILD BOIL TO LEFT BUTTOCKS REVIEW OF SYSTEMS REVIEWED BY: PROVIDER: MAURICIO JONES MD . CONSTITUTIONAL: ANY CHANGE IN YOUR MEDICAL CONDITION? NO . CHILLS NO . FEVER NO . INFECTION: DO YOU HAVE NEW INFECTIONS? NO . DO YOU HAVE HISTORY OF MRSA? NO . MUSCULOSKELETAL: ANY NEW PATTERNS OF PAIN OR NUMBNESS? NO . GASTROENTEROLOGY: ANY NEW CHANGE IN BOWEL CONTROL? NO . GENITOURINARY: ANY NEW CHANGE IN BLADDER CONTROL? NO . IS THERE A CHANCE YOU COULD BE ? NO . HEMATOLOGY/LYMPH: DO YOU TAKE ANY BLOOD THINNERS? (FOR EXAMPLE- COUMADIN, PLAVIX, AGGRENOX, PLATEL, PRADAXA, OR XARELTO) NO . WHEN WAS YOUR LAST DOSE? DATE: TIME: . NEUROLOGY: HAVE YOU FALLEN IN THE PAST 12 MONTHS? NO . ANY NEW EXTREMITY NUMBNESS OR WEAKNESS? NO . CARDIOLOGY: DO YOU HAVE A PACEMAKER OR DEFIBRILLATOR? NO . RESPIRATORY: HAVE YOU BEEN SICK IN THE PAST WEEK? NO . FEVER NO . FLU LIKE SYMPTOMS? NO . COUGH NO . INTEGUMENTARY: DO YOU HAVE ANY RASHES OR OPEN SORES? NO . ALLERGIC/IMMUNO: ARE YOU ALLERGIC TO IV DYE? NO . ANY NEW ALLERGIES? NO . PSYCHIATRIC: DO YOU HAVE THOUGHTS OF HURTING YOURSELF OR SOMEONE ELSE? NO . ARE YOU ABUSED, NEGLECTED, OR IN AN UNSAFE ENVIRONMENT? NO . ENDOCRINOLOGY: ARE YOU DIABETIC? YES, ORAL MEDICATION AND SQ MEDS . OTHER: DO YOU NEED ANY PRESCRIPTIONS? NO . IF YES, PLEASE LIST: ____ . ANY NEW PROBLEMS WITH YOUR MEDICATIONS? NO . WHEN DID YOU LAST EAT? 03/21 6PM . WHEN DID YOU LAST DRINK? 03/22 9AM . WHAT DID YOU LAST DRINK? JAYDEN TONNY . NAME OF PERSON DRIVING YOU HOME? SON- CYNTHIA . VITAL SIGNS WT 329.6 LBS, HT 66 IN, BMI 53.19 INDEX, BP 171/83 MM HG, HR 101 /MIN, RR 18 /MIN, TEMP 96.6 F, OXYGEN SAT % 92%, SAFE IN ENV? (Y/N) Y, NA INITIALS AW 1140, REVIEWED BY: DS. ASSESSMENTS MYALGIA, OTHER SITE - M79.18 (PRIMARY) PROCEDURES PN TRIGGER POINT INJECTION NO STEROIDS DATE OF PROCEDURE : PRE PROCEDURE DIAGNOSIS 1. MYALGIA 2. PAIN AT BILATERAL THORACIC AREA POST PROCEDURE DIAGNOSIS 1. MYALGIA 2. PAIN AT BILATERAL THORACIC AREA PROCEDURE TRIGGER POINT INJECTION AT BILATERAL THORACIC AREA SURGEON DR. MAURICIO JONES HIGH SCHOOL CHEMISTRY TEACHER NONE ANESTHESIA LOCAL PRE PROCEDURE NOTE 59-YEAR-OLD PATIENT WITH HISTORY OF CHRONIC PAIN AT BILATERAL THORACIC AREA. I EVALUATED THE PATIENT AND REVIEWED THE CHART. THERE IS EVIDENCE OF BANDS OF TISSUE WITH RESTRICTION OF MOVEMENT AND PRESENCE OF TRIGGER POINT AT THE BILATERAL THORACIC AREA. I WENT OVER THE RISKS, ALTERNATIVES, AND BENEFITS ASSOCIATED WITH THIS PROCEDURE. THE PATIENT WOULD LIKE TO PROCEED AND GAVE CONSENT TO PERFORM THE PROCEDURE. THE PATIENT DENIES UNEXPLAINABLE WEIGHT LOSS, FEVER, CHILLS, OR NEW CHANGES IN URINARY OR BOWEL CONTROL DESCRIPTION OF PROCEDURE THE PATIENT WAS BROUGHT TO THE PROCEDURE ROOM AND PLACED IN THE SITTING POSITION. THE AREA WAS CLEANED WITH ALCOHOL. THE PROCEDURE WAS DONE USING ASEPTIC STERILE TECHNIQUES. I CHECKED LATERALITY AND THE LEVEL WHERE THE PROCEDURE WAS GOING TO BE PERFORMED WITH THE PATIENT AND THE SUPPORTING STAFF AT THE MOMENT OF THE TIME OUT IN THE PROCEDURE ROOM. USING A 25-GAUGE NEEDLE, TRIGGER POINTS WERE INJECTED INTO THE BILATERAL THORACIC AREA WITH A TOTAL OF 40 ML OF BUPIVACAINE 0.25%. AGREED WITH THE PATIENT THE PROCEDURE WAS DONE WITHOUT STEROIDS. THERE WAS NO EVIDENCE OF BLOOD, PARESTHESIA OR CEREBROSPINAL FLUID DURING THE PROCEDURE. THE PATIENT WAS SENT TO THE RECOVERY ROOM. THE PATIENT WAS MOVING THE EXTREMITIES AND DOING WELL. THERE WAS NO COMPLICATION DURING THE PROCEDURE. POST PROCEDURE NOTE THE PATIENT WILL BE SEEN IN A FOLLOW UP IN THE NEXT FEW WEEKS. INSTRUCTIONS WERE GIVEN, QUESTIONS WERE ANSWERED, AND THE PATIENT EXPRESSED UNDERSTANDING AND AGREED WITH THE PLAN. I, KATELYNN GOTTI, DOCUMENTED THE ABOVE INFORMATION ACTING A SCRIBE FOR DR. JONES. I HAVE REVIEWED THE ABOVE DOCUMENT, WRITTEN BY JOVAN ARCHER, AND I VERIFY THAT IT IS ACCURATE PROCEDURE CODES 72498 INJ TRIGGER POINT 11/24 MUSCL DISPOSITION & COMMUNICATION FOLLOW UP F/UP MARKET RESEARCH ANALYST (REASON: POST-PROCEDURE F/UP) ELECTRONICALLY SIGNED BY MAURICIO JONES MD, MD ON 03/27/2020 AT 02:22 PM EDT DISCLAIMER : THIS IS A VISIT SUMMARY EXTRACTED FROM THE [employer] CHART. IT IS NOT A COPY OF THE [employer] PROGRESS NOTE. MTDD
== END ==
LOC: M PAIN 11:45
PROVIDERS: ATTEND Anesthesiology
DX: M79.18 Myalgia, other site (principal); E11.9 Type 2 diabetes mellitus without complications; G47.00 Insomnia, unspecified; K21.9 Gastro-esophageal reflux disease without esophagitis; Z86.59 Personal history of other mental and behavioral disorders; Z87.891 Personal history of nicotine dependence; E66.01 Morbid (severe) obesity due to excess calories; Z68.43 Body mass index [BMI] 50.0-59.9, adult; Z79.4 Long term (current) use of insulin; Z79.899 Other long term (current) drug therapy

== ENCOUNTER → 2020-04-05 | Outpatient (CLI) | payer OTHER, MEDICARE ==
[~2020-04-05] MED LIST changes: -BUPIVACAINE HCL 0.25% 10ML VIAL As Ordered ONE; -BUPIVACAINE HCL 0.25% 30ML VIAL As Ordered ONE
--- NOTE | 2020-04-10 02:18 | ECWPNPC ---
PATIENT NAME: KLAUS MUNOZ : 1960 GENDER: FEMALE VISIT DATE: 04/05/2020 DISCHARGE DATE: 04/05/2044 VISIT LOCKED DATE TIME: PHYSICIAN: ROEL CORBETT RESOURCE: ROEL CORBETT REASON FOR APPOINTMENT 1. POST [phone] PAT PHONE CALL COMPLETED HISTORY OF PRESENT ILLNESS HISTORY OF PRESENT ILLNESS: PATIENT IS AGREEABLE TO TELEPHONE VISIT TODAY. HAD TRIGGER POINT INJECTIONS WITHOUT STEROIDS BILATERAL THORACIC REGION ON 03/22/2020. REPORTING 3 DAYS OF IMPROVEMENT AND THEN PAIN RETURNED TO BASELINE. HAS GENERALIZED BODY PAIN SECONDARY TO FIBROMYALGIA. REVIEWED TREATMENT OPTIONS. PATIENT IS NOT WILLING TO GO THROUGH WITH MRI IMAGING OF HER LUMBAR SPINE FOR EVALUATION FOR MORE INTERVENTIONS. HAS TRIALED MULTIPLE DIFFERENT MEDICATIONS WITH EITHER SIDE EFFECTS OR NO IMPROVEMENT IN PAIN. I REVIEWED MEDICATION OPTIONS THAT I COULD THINK OF FOR HER, BUT SHE HAS REPORTS OF SIDE EFFECTS WITH ANY OF MY RECOMMENDATIONS. RATING PAIN LEVEL A 7/10 VAS. AT THIS POINT WE WILL HAVE TO REFER HER BACK TO PRIMARY CARE FOR ANY MORE SUGGESTIONS TO TREAT HER PAIN CONDITION. PATIENT IS AGREEABLE. PAIN THE PATIENT DESCRIBES THE PAIN... FALL RISK SCREENING: SCREENING :NO FALLS REPORTED IN THE LAST YEAR CURRENT MEDICATIONS TAKING TIZANIDINE HCL 4 MG TABLET TK 1 T PO TID PRN ORAL TAKING LIDOCAINE HCL 5 % CREAM DIRECTED EXTERNALLY THREE TIMES DAILY NEEDED TAKING AMITRIPTYLINE HCL 10 MG TABLET TAKE 2 TABLETS ONE TIME DAILY TAKING VENLAFAXINE HCL ER 150 MG CAPSULE EXTENDED RELEASE 24 HOUR 1 CAPSULE WITH FOOD ORALLY ONCE A DAY TAKING TRAZODONE HCL 100 MG TABLET 1 TABLET AT BEDTIME ORALLY ONCE A DAY TAKING TOUANSELMO SOLOSTAR 300 UNIT/ML SOLUTION PEN-INJECTOR 100 UNITS SUBCUTANEOUS BEFORE BEDTIME TAKING OMEPRAZOLE 40 MG CAPSULE DELAYED RELEASE 1 CAPSULE ORALLY ONCE A DAY TAKING PRAMIPEXOLE DIHYDROCHLORIDE 0.5 MG TABLET 2 TABLET ORALLY ONCE A DAY TAKING MONTELUKAST SODIUM 10 MG TABLET 1 TABLET ORALLY ONCE A DAY TAKING INVOKANA 300 MG TABLET 1 TABLET ORALLY ONCE A DAY TAKING FUROSEMIDE 40 MG TABLET 1 TABLET ORALLY DAILY/PRN TAKING FAMOTIDINE 40 MG TABLET 1 TABLET AT BEDTIME ORALLY ONCE A DAY TAKING VITAMIN D3 125 MCG (5000 UT) CAPSULE DIRECTED ORALLY DAILY TAKING GABAPENTIN 300 MG CAPSULE TAKE 1 CAPSULE THREE TIMES DAILY TAKING JANUVIA 100 MG TABLET 1 TABLET ORALLY ONCE A DAY TAKING VENLAFAXINE HCL 37.5 MG TABLET 1 TABLET WITH FOOD ORALLY BID TAKING LEVOCETIRIZINE DIHYDROCHLORIDE 5 MG TABLET 1 TABLET IN THE EVENING ORALLY ONCE A DAY NOT-TAKING DIFLUCAN 150 MG TABLET 1 TABLET ORALLY ONCE DAILY DIRECTED, REPEAT IN 72 HOURS NOT-TAKING LEVOCETIRIZINE DIHYDROCHLORIDE 5 MG TABLET 1 TABLET IN THE EVENING ORALLY ONCE A DAY MEDICATION LIST REVIEWED AND RECONCILED WITH THE PATIENT PAST MEDICAL HISTORY FIBROMYALGIA DIABETES DYSTHYMIA INSOMNIA SINUSITIS/ALLERGIC RHINITIS GERD ANXIETY HERNIATED DISCS CERVICAL SPINE VARICOSE VEINS ALLERGIES N.K.D.A. SURGICAL HISTORY GALLBLADDER REMOVED RIGHT KNEE BILAT HANDS CARPEL TUNNEL PARTIAL HYSTERECTOMY RIGHT ARM LUMP REMOVAL PROCEDURE ON VEINS LEFT LEG 01/2020 FAMILY HISTORY FATHER: 82 YRS MOTHER: 62 YRS, DIAGNOSED WITH OTHER MALIGNANT NEOPLASM OF UNSPECIFIED SITE 2 BROTHER(S) , 1 SISTER(S) - HEALTHY. 1 SON(S) , 1 DAUGHTER(S) - HEALTHY. ALL SIBLINGS ARE DIABETICSISTER - THYROID DISEASEMOTHER - CANCER OF LYMPH NODESFATHER - COPD. SOCIAL HISTORY GENERAL: TOBACCO USE ARE YOU A:FORMER SMOKER QUIT 2007 LATEX QUESTIONNAIRE LATEX ALLERGY : HAVE YOU EVER DEVELOPED ANY TYPE OF REACTION AFTER HANDLING LATEX PRODUCTS SUCH RUBBER GLOVES, CONDOMS, DIAPHRAGMS, BALLOONS, SOCKS, OR UNDERWEAR?NO LATEX ALLERGY : HAVE YOU EVER DEVELOPED ANY TYPE OF REACTION DURING OR AFTER DENTAL APPOINTMENT, VAGINAL/RECTAL EXAMINATION, SURGICAL PROCEDURE, OR ANY OTHER EXPOSURE?NO DATE ASKED : 03/21/2020 LATEX RISK : HAVE YOU EVER HAD ANY DIFFICULTY BREATHING OR HIVES AFTER EATING OR HANDLING ANY FRUITS, OR VEGETABLES; SUCH KIWI, BANANAS, STONE FRUITS, OR CHESTNUTSNO LATEX RISK : DO YOU HAVE A PREVIOUS PERSONAL HISTORY OF MORE THAN NINE SURGERIES, SPINA BIFIDA, OR REPEATED CATHERIZATIONS? NO LATEX RISK : ARE YOU FREQUENTLY EXPOSED TO LATEX PRODUCTS IN YOUR OCCUPATION?NO BMI CARE GOAL FOLLOW-UP ABOVE NORMAL BMI FOLLOW-UPDIETARY MANAGEMENT EDUCATION, GUIDANCE, AND COUNSELING, DIETARY NEEDS EDUCATION ALCOHOL SCREENING DID YOU HAVE A DRINK CONTAINING ALCOHOL IN THE PAST YEAR?YES HOW OFTEN DID YOU HAVE SIX OR MORE DRINKS ON ONE OCCASION IN THE PAST YEAR?NEVER (0 POINTS) HOW MANY DRINKS DID YOU HAVE ON A TYPICAL DAY WHEN YOU WERE DRINKING IN THE PAST YEAR?1 OR 2 (0 POINTS) HOW OFTEN DID YOU HAVE A DRINK CONTAINING ALCOHOL IN THE PAST YEAR?MONTHLY OR LESS (1 POINT) POINTS1 INTERPRETATIONNEGATIVE RECREATIONAL DRUG USE DRUG USE?NO PATIENT DENIES ABUSE OR MISSUSED OF ANY MEDICATION DENIES PATIENT DENIES USE OF ANY ILLEGAL SUBSTANCE INCLUDING MARIJUANA OR COCAINE DENIES CAFFEINE CAFFEINE USE?YES HOW OFTEN AND HOW MUCH? DIET PEPSI SEXUAL HX HAD SEX IN THE LAST 12 MONTHS (VAGINAL, ORAL, OR ANAL)?NO HAVE YOU EVER HAD AN STD?NO HIV / HEP-C SCREENING HIV TEST OFFERED TO PATIENT:YES DATE OFFERED:12/26/2019 TEST ACCEPTED:NO HEP-C TEST OFFERED TO PATIENT:NO REASON:PATIENT DECLINED BROCHURE PROVIDED TO PATIENTYES JEWISH [id number] SHINTO LANGUAGE LANGUAGES SPOKEN:YI EDUCATION LEVEL OF EDUCATION:FINISHED HIGH SCHOOL LEARNING BARRIERS / SPECIAL NEEDS CHANGE FROM LAST VISIT?NO BARRIERS TO LEARNING?NO HEARING IMPAIRED?NO VISION IMPAIRED?YES COGNITIVELY IMPAIRED?NO :CORRECTIVE LENSES READINESS TO LEARN?YES LEARNING PREFERENCES?NO LEARNING CAPABILITIES PRESENT?YES EMOTIONAL BARRIERS?NO SPECIAL DEVICES?YES :CANE, WALKER ONLY USES WHEN NEEDED MICROPHONE BOOM OPERATOR NEEDED?NO DOMESTIC VIOLENCE DO YOU FEEL SAFE IN YOUR ENVIRONMENT?YES OCCUPATION: DISABLED. DIET: REGULAR. EXERCISE: WALKS. MARITAL STATUS: . OTHERS AT HOME: SPOUSE, CHILD, GRANDCHILDREN. NEW PATIENT PAIN DIARY TODAY'S VISIT 04/04/20 PATIENT DESCRIBES PAIN :BURNING, HAVE IT ALL THE TIME, THROBBING, SHOOTING FROM 0-10, WHAT LEVEL IS YOUR PAIN TODAY?7 PRECIPITATING FACTORS ACTIVITY, VACUUMING, WALKING, BENDING ALLEVIATING FACTORS NOTHING PAIN CLINIC PFS, CLERGY, PUBLIC HEALTH REFERRALS PFS REFERRAL NEEDED?NO CLERGY REFERRAL NEEDED?NO PUBLIC HEALTH REFERRAL NEEDED?NO WAS THE PROVIDER NOTIFIED OF ANY PERTINENT INFO?YES HAS THE PATIENT BEEN EDUCATED REGARDING HIS/HER PLAN OF CARE?YES HAS THE PATIENT BEEN EDUCATED REGARDING PAIN, THE RISK FOR PAIN, THE IMPORTANCE OF EFFECTIVE PAIN MANAGEMENT, AND THE PAIN ASSESSMENT PROCESS?YES ADVANCE DIRECTIVE ADVANCE DIRECTIVE DISCUSSED WITH PATIENT:YES PT STATES SHE HAS A HCP- SON CYNTHIA MUNOZ [phone] HOSPITALIZATION/MAJOR DIAGNOSTIC PROCEDURE SURGERIES CHILD BOIL TO LEFT BUTTOCKS REVIEW OF SYSTEMS REVIEWED BY: PROVIDER: ROEL STEELE . CONSTITUTIONAL: ANY CHANGE IN YOUR MEDICAL CONDITION? NO . CHILLS NO . FEVER NO . INFECTION: DO YOU HAVE NEW INFECTIONS? NO . DO YOU HAVE HISTORY OF MRSA? NO . MUSCULOSKELETAL: ANY NEW PATTERNS OF PAIN OR NUMBNESS? NO . GASTROENTEROLOGY: ANY NEW CHANGE IN BOWEL CONTROL? NO . GENITOURINARY: ANY NEW CHANGE IN BLADDER CONTROL? YES PT REPORTS INCREASED STRESS INCONTINENCE AND URGENCY . IS THERE A CHANCE YOU COULD BE ? NO . HEMATOLOGY/LYMPH: DO YOU TAKE ANY BLOOD THINNERS? (FOR EXAMPLE- COUMADIN, PLAVIX, AGGRENOX, PLATEL, PRADAXA, OR XARELTO) NO . WHEN WAS YOUR LAST DOSE? DATE: TIME: . NEUROLOGY: HAVE YOU FALLEN IN THE PAST 12 MONTHS? NO . ANY NEW EXTREMITY NUMBNESS OR WEAKNESS? NO . CARDIOLOGY: DO YOU HAVE A PACEMAKER OR DEFIBRILLATOR? NO . RESPIRATORY: HAVE YOU BEEN SICK IN THE PAST WEEK? NO . FEVER NO . FLU LIKE SYMPTOMS? NO . COUGH NO . INTEGUMENTARY: DO YOU HAVE ANY RASHES OR OPEN SORES? NO . ALLERGIC/IMMUNO: ARE YOU ALLERGIC TO IV DYE? NO . ANY NEW ALLERGIES? NO . PSYCHIATRIC: DO YOU HAVE THOUGHTS OF HURTING YOURSELF OR SOMEONE ELSE? NO . ARE YOU ABUSED, NEGLECTED, OR IN AN UNSAFE ENVIRONMENT? NO . ENDOCRINOLOGY: ARE YOU DIABETIC? YES . OTHER: DO YOU NEED ANY PRESCRIPTIONS? NO . IF YES, PLEASE LIST: ____ . ANY NEW PROBLEMS WITH YOUR MEDICATIONS? NO . WHEN DID YOU LAST EAT? ____ . WHEN DID YOU LAST DRINK? ____ . WHAT DID YOU LAST DRINK? ____ . NAME OF PERSON DRIVING YOU HOME? ____ . DO YOU HAVE ANY OTHER QUESTIONS OR CONCERNS NO . ASSESSMENTS MYALGIA, OTHER SITE - [facility] [place].18 (PRIMARY) FIBROMYALGIA - [facility] [place].7 TREATMENT MYALGIA, OTHER SITE NOTES: DISCHARGE TO PRIMARY CARE. DISPOSITION & COMMUNICATION FOLLOW UP DISCHARGE TO PRIMARY CARE (REASON: FIBROMYALGIA) ELECTRONICALLY SIGNED BY IVETTE LOYOLA ON 04/09/2020 AT 03:07 PM EDT DISCLAIMER : THIS IS A VISIT SUMMARY EXTRACTED FROM THE [employer] CHART. IT IS NOT A COPY OF THE [employer] PROGRESS NOTE. EUGENIO
== END ==
LOC: M PAIN 11:15
PROVIDERS: ATTEND Nurse Practitioner Family
DX: M79.18 Myalgia, other site (principal); M79.7 Fibromyalgia; E11.9 Type 2 diabetes mellitus without complications; G47.00 Insomnia, unspecified; K21.9 Gastro-esophageal reflux disease without esophagitis; Z86.59 Personal history of other mental and behavioral disorders; Z87.891 Personal history of nicotine dependence; Z79.4 Long term (current) use of insulin; Z79.899 Other long term (current) drug therapy

== ENCOUNTER → 2020-08-14 | Outpatient (POV) | payer OTHER ==
--- NOTE | 2020-08-15 11:43 | IRPN ---
[facility] IR Progress Note IR Progress Note DATE: Aug 14, 2020 Patient agreed to this telephone follow-up. Duration of call 5 minutes. FOLLOW-UP: 6 months status post left leg EVLT for pain and swelling. Patient doing well. States " it made a world of difference". No further left leg aching or swelling reported. Patient is ambulating. ON EXAMINATION: No video on patient side. IMPRESSION: Doing well status post left leg EVLT. No further follow-up scheduled unless initiated by patient and/or referring provider. Thank you for this referral CHARLEY Vinson Allergies Coded Allergies: No Known Allergies (Verified , 01/29/13) DELIO RAMIREZ MD Aug 15, 2020 11:43
== END ==
LOC: M IRPOV 08:17
PROVIDERS: ATTEND Radiology Diagnostic Radiology
DX: Z48.812 Encounter for surgical aftercare following surgery on the circulatory system (principal)

== ENCOUNTER → 2021-01-28 | Outpatient (CLI) | payer MEDICARE, OTHER ==
[~2021-01-28] MED LIST changes: +MONT10TA10 PO; -MONT10TA4 PO
[2021-01-28 07:01] LABS: BASO # 0.1 10^3/uL (0.0-0.2); BASO % 0.7 % (0.0-1.0); EOS % 0.4 % (0.0-3.0); HEMATOCRIT 44.7 % (36.0-47.0); HEMOGLOBIN 13.7 g/dl (12.0-15.5); LYMPH % 27.9 % (24.0-44.0); MEAN CORPUSCULAR HEMOGLOBIN 28.4 pg (27.0-33.0); MEAN CORPUSCULAR HGB CONC 30.6 g/dl (32.0-36.5); MEAN CORPUSCULAR VOLUME 92.5 fl (80.0-96.0); MONO # 0.5 10^3/uL (0.0-0.8); MONO % 6.5 % (2.0-8.0); NEUTROPHILS # 4.5 10^3/uL (1.5-8.5); NEUTROPHILS % 63.7 % (36.0-66.0); PLATELET COUNT, AUTOMATED 171 10^3/uL (150-450); RED BLOOD COUNT 4.83 10^6/uL (4.00-5.40); WHITE BLOOD COUNT 7.1 10^3/uL (4.0-10.0)
[2021-01-28 07:16] LABS: HEMOGLOBIN A1c 10.1 %
[2021-01-28 07:24] LABS: ALBUMIN 3.7 GM/DL (3.2-5.2); ALT/SGPT 21 U/L (12-78); BILIRUBIN,TOTAL 0.4 MG/DL (0.2-1.0); BLOOD UREA NITROGEN 16 MG/DL (7-18); CALCIUM LEVEL 8.5 MG/DL (8.5-10.1); CARBON DIOXIDE LEVEL 33 MEQ/L (21-32); CHLORIDE LEVEL 106 MEQ/L (98-107); CHOLESTEROL LEVEL 168 MG/DL (<200); CREATININE FOR GFR 0.74 MG/DL (0.55-1.30); GLOMERULAR FILTRATION RATE > 60.0 (>51); GLUCOSE, FASTING 318 MG/DL (70-100); HDL CHOLESTEROL 30 MG/DL (>40); LDL CHOLESTEROL 104 MG/DL (<100); NON-HDL-C 138 MG/DL; POTASSIUM SERUM 3.8 MEQ/L (3.5-5.1); SODIUM LEVEL 142 MEQ/L (136-145); TRIGLYCERIDES LEVEL 172 MG/DL (<150)
== END ==
LOC: M LAB 06:32
PROVIDERS: ATTEND Nurse Practitioner Family
DX: F34.1 Dysthymic disorder (principal); E11.9 Type 2 diabetes mellitus without complications; Z13.220 Encounter for screening for lipoid disorders

== ENCOUNTER → 2021-07-01 | Outpatient (CLI) | payer OTHER ==
[~2021-07-01] MED LIST changes: +GABA-282 PO; +GABA-283 PO; -GABA-845 PO; +MIRA0.5T PO; -MONT10TA10 PO; +MONT10TA97 PO; +NIRM1TAB PO; +OMEP40CA4 PO; -OMEP40CA97 PO; -OXYC1TAB15 PO; +OXYC7.5T3 PO; +POTA10CA32 PO; +PRAV20TA2 PO; +TORS20TA2 PO; +TRUL0.5I SC
== END ==
LOC: M RAD 15:48
PROVIDERS: ATTEND Nurse Practitioner Family
DX: M79.662 Pain in left lower leg (principal); M79.89 Other specified soft tissue disorders

== ENCOUNTER → 2021-09-12 | Outpatient (CLI) | payer OTHER ==
[~2021-09-12] MED LIST changes: -GABA-282 PO; -MIRA0.5T PO; +MONT10TA10 PO; -MONT10TA97 PO; -NIRM1TAB PO; -POTA10CA32 PO; -PRAV20TA2 PO; -TORS20TA2 PO; -TRUL0.5I SC
[2021-09-12 09:57] LABS: BASO % 0.5 % (0.0-1.0); EOS % 0.4 % (0.0-3.0); HEMATOCRIT 43.1 % (36.0-47.0); HEMOGLOBIN 13.3 g/dl (12.0-15.5); LYMPH # 2.3 10^3/uL (1.5-5.0); LYMPH % 29.3 % (24.0-44.0); MEAN CORPUSCULAR HEMOGLOBIN 28.2 pg (27.0-33.0); MEAN CORPUSCULAR HGB CONC 30.9 g/dl (32.0-36.5); MEAN CORPUSCULAR VOLUME 91.3 fl (80.0-96.0); MONO # 0.5 10^3/uL (0.0-0.8); MONO % 5.8 % (2.0-8.0); NEUTROPHILS # 5.1 10^3/uL (1.5-8.5); NEUTROPHILS % 63.1 % (36.0-66.0); PLATELET COUNT, AUTOMATED 169 10^3/uL (150-450); RED BLOOD COUNT 4.72 10^6/uL (4.00-5.40)
[2021-09-12 10:18] LABS: ALBUMIN 3.3 GM/DL (3.2-5.2); ALT/SGPT 23 U/L (12-78); BILIRUBIN,TOTAL 0.5 MG/DL (0.2-1.0); BLOOD UREA NITROGEN 20 MG/DL (7-18); CALCIUM LEVEL 8.3 MG/DL (8.5-10.1); CARBON DIOXIDE LEVEL 31 MEQ/L (21-32); CHLORIDE LEVEL 104 MEQ/L (98-107); CHOLESTEROL LEVEL 150 MG/DL (<200); CHOLESTEROL RISK RATIO 4.411 (<5); CREATININE FOR GFR 0.84 MG/DL (0.55-1.30); GLOMERULAR FILTRATION RATE > 60.0 (>51); GLUCOSE, FASTING 207 MG/DL (70-100); HDL CHOLESTEROL 34 MG/DL (>40); LDL CHOLESTEROL 90 MG/DL (<100); NON-HDL-C 116 MG/DL; POTASSIUM SERUM 4.2 MEQ/L (3.5-5.1); SODIUM LEVEL 140 MEQ/L (136-145); TOTAL PROTEIN 6.9 GM/DL (6.4-8.2); TRIGLYCERIDES LEVEL 131 MG/DL (<150)
[2021-09-12 10:26] LABS: CREATININE, URINE 69.3 MG/DL; MAU/CREAT RATIO 199.1 MCG/MG (0.0-30.0)
[2021-09-12 10:59] LABS: HEMOGLOBIN A1c 8.7 %
== END ==
LOC: M LAB 09:07
PROVIDERS: ATTEND Nurse Practitioner Family
DX: L03.116 Cellulitis of left lower limb (principal); E11.622 Type 2 diabetes mellitus with other skin ulcer

== ENCOUNTER 2021-10-21 10:34 | Observation (INO) | payer MEDICARE, OTHER ==
[~2021-10-21] VITALS: Ht 167.6 cm; Wt 152.9 kg
[2021-10-21 11:12] LABS: BASO % 0.4 % (0.0-1.0); EOS % 0.1 % (0.0-3.0); HEMATOCRIT 42.1 % (36.0-47.0); HEMOGLOBIN 12.6 g/dl (12.0-15.5); LYMPH # 1.4 10^3/uL (1.5-5.0); LYMPH % 19.3 % (24.0-44.0); MEAN CORPUSCULAR HEMOGLOBIN 27.9 pg (27.0-33.0); MEAN CORPUSCULAR HGB CONC 29.9 g/dl (32.0-36.5); MEAN CORPUSCULAR VOLUME 93.1 fl (80.0-96.0); MONO # 0.4 10^3/uL (0.0-0.8); MONO % 5.6 % (2.0-8.0); NEUTROPHILS # 5.5 10^3/uL (1.5-8.5); NEUTROPHILS % 73.5 % (36.0-66.0); PLATELET COUNT, AUTOMATED 180 10^3/uL (150-450); RED BLOOD COUNT 4.52 10^6/uL (4.00-5.40); WHITE BLOOD COUNT 7.5 10^3/uL (4.0-10.0)
--- NOTE | 2021-10-21 11:28 | REP ---
INDICATION: DYSPNEA/COUGH COMPARISON: 11/07/2016 TECHNIQUE: Portable AP view of the chest FINDINGS: Mediastinum and cardiac silhouette are grossly normal for portable technique. Subtle bibasilar airspace disease cannot be excluded. No discrete focal consolidation. No effusion. No pneumothorax. IMPRESSION: Cannot exclude very subtle basilar airspace disease. <Electronically signed by Klaus Vallecillo > 10/21/21 1123
[2021-10-21 11:39] LABS: ALBUMIN 3.3 GM/DL (3.2-5.2); ALT/SGPT 26 U/L (12-78); BILIRUBIN,DIRECT 0.3 MG/DL (0.0-0.2); BILIRUBIN,TOTAL 0.8 MG/DL (0.2-1.0); BLOOD UREA NITROGEN 16 MG/DL (7-18); CALCIUM LEVEL 8.6 MG/DL (8.5-10.1); CARBON DIOXIDE LEVEL 32 MEQ/L (21-32); CHLORIDE LEVEL 105 MEQ/L (98-107); CREATININE FOR GFR 0.64 MG/DL (0.55-1.30); GLOMERULAR FILTRATION RATE > 60.0 (>51); GLUCOSE, FASTING 285 MG/DL (70-100); POTASSIUM SERUM 3.7 MEQ/L (3.5-5.1); SODIUM LEVEL 143 MEQ/L (136-145)
[2021-10-21 11:59] LABS: RSV AMPLIFICATION NEGATIVE (NEGATIVE)
[2021-10-21] MEDS ORDERED: IPRATROPIUM 0.5MG/ALBUTEROL 2.5MG INH SOL UD 3ML (DUONEB) NEB ONE (12:45)
[2021-10-21] MEDS ORDERED: FUROSEMIDE 40MG/4ML VIAL (J1940) IV ONE (12:45)
--- OUTSIDE RECORDS SUMMARY | 2021-10-21 13:19 | CCD ---
Author Author [facility] Organization [facility] Address Unknown Phone Unavailable Care Team Providers Care Fish Smoker Name Role Phone Karel Jacey Unavailable PROBLEMS Type Condition ICD9-CM Code [id number] Code Onset Dates Condition S tatus W/U Status Risk SNOMED Code Notes Problem Dysthymia F34.1 Active confirmed 52058666 Problem Seasonal allergic rhinitis, unspecified trigger J3 0.2 Active confirmed 192742703 Problem Controlled type 2 diabetes m ellitus without complication, without long- term current use of insulin E11.9 Active confirmed 31 7422195 Problem Type 2 diabetes mellitus with other skin ulcer E11 .622 Active confirmed 144592807 Problem Fibromyalgia M79.7 Active confirmed 3516327 05 Problem Venous stasis dermatitis of left lower extremity I 87.2 Active confirmed 06646059 Problem GERD without esophagitis K21.9 Active confirmed 445023404 Problem Diabetic polyneuropathy associated with type 2 d iabetes mellitus E11.42 Active confirmed 725153098 Problem Myalgia, other site M79.18 Active confirmed 57917667 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 Activ e confirmed [id number] ALLERGIES No Known Allergies ENCOUNTERS from 1960 to 2021-10-04 Encounter Location Date Provider Diagnosis [address] [phone] [place] [address] 11 Sep, 2021 Jacey Vinson Controlled type 2 diabetes m ellitus without complication, without long-term current use of insulin E11.9 IMMUNIZATIONS No Information SOCIAL HISTORY Tobacco Use: Social History Observation Description Date Details (start date - stop date) Former Smoker Sex Assigned At : Social History Observation Description Sex Assigned At Unknown Education: Question Answer Notes Level of Education: Finished High School Audit Question Answer Notes Total Score: 1 Interpretation: Alcohol Education Language: Question Answer Notes Languages spoken: Chinese Buddhist: Question Answer Notes Buddhist 21 [employer] Sexual Hx: Question Answer Notes Had sex in the last 12 months (vaginal, oral, or anal)? No Have you ever had an STD? No Drug and Alcohol Question Answer Notes Total Score: 0 Interpretation: No problems reported Alcohol Screening: Question Answer Notes Did you have a drink containing alcohol in the past year? Ye s Points 1 Interpretation Negative How often did you have six or more drinks on one occas ion in the past year? Never (0 points) How many drinks did you have on a typica l day when you were drinking in the past year? 1 or 2 (0 points) How often did you have a drink containing alcohol in t he past year? Monthly or less (1 point) BMI Care Goal Follow-Up Question Answer Notes Above Normal BMI Follow-Up Dietary management educatio n, guidance, and counseling, Dietary needs education Tobacco Use: Question Answer Notes Are you a: former smoker quit 2007 REASON FOR REFERRAL No Information VITAL SIGNS No information MEDICATIONS Medication SIG (Take, Route, Frequency, Duration) Notes Start Da te End Date Status Venlafaxine HCl 37.5 MG TAKE 1 TABLET TWICE DAILY WITH FOOD Active Gabapentin 300 MG take 1 capsule 8am, 1 capsul e 4pm, 2 capsules at bedtime orally TAKE 1 CAPSULE 8am, 1 capsule 4pm, 2 capsules at bedtime for 90 day(s) Active Toujeo SoloStar 300 UNIT/ML INJECT 104 UNITS SUBCUTANE OUSLY BEFORE BEDTIME Subcutaneous before bedtime Acti ve tiZANidine HCl 4 MG TK 1 T PO TID PRN Oral Not-Taking Vitamin D3 125 MCG (5000 UT) as directed Orally Daily for 90 day (s) Feb, Not-Taking Pravastatin Sodium 20 MG 1 tablet Orally Once a day Jan Active Venlafaxine HCl ER 150 MG TAKE 1 CAPSULE BY MOUTH EVER Y DAY WITH FOOD Orally Once a day for 90 day(s) Active Trulicity 1.5 MG/0.5ML as directed Subcutaneous WEEKLY ICD10: E1 1.662 Jan, Active Levocetirizine Dihydrochloride 5 MG TAKE 1 TABLET EVERY EVENING orally Daily Active Amitriptyline HCl 10 MG TAKE 2 TABLETS ONE TIME DAILY Active Cephalexin 500 MG 1 capsule Orally twice daily for 7 day(s) Oct, Not-Taking Amoxicillin-Pot Clavulanate 875-125 MG 1 tablet Orally every 12 hrs for 7 days March, Not-Taking Fluconazole 150 MG 1 tablet Orally Daily, repeat in 72 hours for 4 days Sep, Active Pen [place] 32G X 5 MM as directed WEEKLY ([facility] for 90 day(s) dispense brand covered by pt's insurnace Jan, Not-Taki ng Melatonin 10 MG as directed Orally A ctive Cefadroxil 500 MG 1 capsule Orally every 12 hrs for 7 day(s) Jul, Not-Taking Lidocaine HCl 5 % as directed Externally three times daily as ne eded Jul, Not-Taking Invokana 300 MG 1 tablet before the first meal of the day Orally On ce a day Active Montelukast Sodium 10 MG TAKE 1 TABLET EVERY DAY orally Daily Active Famotidine 40 MG TAKE 1 TABLET AT BEDTIME orally at bedtime Active Diflucan 150 MG 1 tablet Orally once daily a s directed, repeat in 72 hours for 3 days prn Jul, Not-Taking Omeprazole 40 MG TAKE 1 CAPSULE EVERY DAY orally Daily Active traZODone HCl 100 MG 1 tablet at bedtime Orally Once a day for 90 day (s) Active Furosemide 40 MG TAKE 1 TABLET EVERY DAY N EEDED orally Daily as needed for fluid retention for 90 day(s) prn Ac tive Pramipexole Dihydrochloride 0.5 MG TAKE 2 TABLETS EVERY DAY Oral ly Once a day Active Doxycycline Monohydrate 100 MG 1 capsule Orally Twice a day for 7 day(s) Sep, Active PROCEDURES No Information RESULTS No Results REASON FOR VISIT Refill MEDICAL (GENERAL) HISTORY Type Description Date Medical History FIBROMYALGIA Medical History DIABETES Medical History DYSTHYMIA Medical History INSOMNIA Medical History SINUSITIS/ALLERGIC RHINITIS Medical History GERD Medical History ANXIETY Medical History HERNIATED DISCS CERVICAL SPINE Medical History Varicose veins Surgical History gallbladder removed Surgical History right knee Surgical History bilat hands carpel tunnel Surgical History PARTIAL HYSTERECTOMY Surgical History RIGHT ARM LUMP REMOVAL Surgical History Procedure on veins left leg 01/2020 Hospitalization History SURGERIES Hospitalization History CHILD Hospitalization History BOIL TO LEFT BUTTOCKS Goals Section No Information Health Concerns No Information MEDICAL EQUIPMENT No Information MENTAL STATUS No Information FUNCTIONAL STATUS No Information ASSESSMENTS Encounter Date Diagnosis Assessment Notes Treatment Notes Treatm ent Clinical Notes Sep, Controlled type 2 diabetes nichole landry without complication, without long-term current use of insulin (ICD-10 - E11.9) PLAN OF TREATMENT Medication Medication Name Sig Start Date Stop Date Omeprazole 40 MG TAKE 1 CAPSULE EVERY DAY orally Daily Doxycycline Monohydrate 100 MG 1 capsule Orally Twice a day for 7 day(s) Sep, Fluconazole 150 MG 1 tablet Orally Daily, repeat in 72 hour s for 4 days Sep, Pravastatin Sodium 20 MG 1 tablet Orally Once a day Jan, Montelukast Sodium 10 MG TAKE 1 TABLET EVERY DAY orally Daily Trulicity 1.5 MG/0.5ML as directed Subcutaneous WEEKLY Jan, Invokana 300 MG 1 tablet before the first meal of the day Orally Once a day Toujeo SoloStar 300 UNIT/ML INJECT 104 UNITS SUBCUTANE OUSLY BEFORE BEDTIME Subcutaneous before bedtime Famotidine 40 MG TAKE 1 TABLET AT BEDTIME orally at bedtime Levocetirizine Dihydrochloride 5 MG TAKE 1 TABLET EVERY EVENING orally Daily Venlafaxine HCl 37.5 MG TAKE 1 TABLET TWICE DAILY WITH FOOD Insurance Providers Payer Name Payer Address Payer Phone Insured Name Patient Relati onship to Insured Coverage Start Date Coverage End Date MEDICARE Part A and B [address] [facility] [id number] KLAUS MUNOZ self [employer]NA [facility] [address] [address] [facility] [id number] KLAUS DELEON self
--- OUTSIDE RECORDS SUMMARY | 2021-10-21 13:19 | CCD ---
Author Author [facility] Organization [facility] Address Unknown Phone Unavailable Care Team Providers Care Director Of Investigations Name Role Phone KarelDeandre moncadanzie Unavailable PROBLEMS Type Condition ICD9-CM Code [id number] Code Onset Dates Condition S tatus W/U Status Risk SNOMED Code Notes Problem Dysthymia F34.1 Active confirmed 17704670 Problem Seasonal allergic rhinitis, unspecified trigger J3 0.2 Active confirmed 639379024 Problem Controlled type 2 diabetes m ellitus without complication, without long- term current use of insulin E11.9 Active confirmed 31 7894845 Problem Type 2 diabetes mellitus with other skin ulcer E11 .622 Active confirmed 348170264 Problem Fibromyalgia M79.7 Active confirmed 4938510 05 Problem Venous stasis dermatitis of left lower extremity I 87.2 Active confirmed 36242665 Problem GERD without esophagitis K21.9 Active confirmed 964968792 Problem Diabetic polyneuropathy associated with type 2 d iabetes mellitus E11.42 Active confirmed 700566424 Problem Myalgia, other site M79.18 Active confirmed 19609002 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 Activ e confirmed [id number] ALLERGIES No Known Allergies ENCOUNTERS from 1960 to 2021-09-04 Encounter Location Date Provider Diagnosis [address] [phone] [place] [address] 12 Aug, 2021 Jacey Vinson Diabetic polyneuropathy asso ciated with type 2 diabetes mellitus E11.42 IMMUNIZATIONS No Information SOCIAL HISTORY Tobacco Use: Social History Observation Description Date Details (start date - stop date) Former Smoker Sex Assigned At : Social History Observation Description Sex Assigned At Unknown Education: Question Answer Notes Level of Education: Finished High School Audit Question Answer Notes Total Score: 1 Interpretation: Alcohol Education Language: Question Answer Notes Languages spoken: Nepalese Orthodox: Question Answer Notes Orthodox 21 [employer] Sexual Hx: Question Answer Notes Had sex [...] Notes Start Da te End Date Status Melatonin 10 MG as directed Orally A ctive Gabapentin 300 MG take 1 capsule 8am, 1 capsul e 4pm, 2 capsules at bedtime orally TAKE 1 CAPSULE 8am, 1 capsule 4pm, 2 capsules at bedtime for 90 day(s) Active Pen [place] 32G X 5 MM as directed WEEKLY (TRULICITY) for 90 day(s) dispense brand covered by pt's insurnace Jan, Not-Taki ng traZODone HCl 100 MG 1 tablet at bedtime Orally Once a day for 90 day (s) Active Diflucan 150 MG 1 tablet Orally once daily a s directed, repeat in 72 hours for 3 days prn Jul, Not-Taking tiZANidine HCl 4 MG TK 1 T PO TID PRN Oral Not-Taking Venlafaxine HCl ER 150 MG 1 capsule with food Orally Once a day for 30 days Active Lidocaine HCl 5 % as directed Externally three times daily as ne eded Jul, Not-Taking Trulicity 1.5 MG/0.5ML as directed Subcutaneous WEEKLY for 9 0 day(s) ICD10: E11.662 Jan, Active Furosemide 40 MG TAKE 1 TABLET EVERY DAY N EEDED orally Daily as needed for fluid retention for 90 day(s) prn Ac tive Montelukast Sodium 10 MG TAKE 1 TABLET EVERY DAY orally Daily Active Pramipexole Dihydrochloride 0.5 MG TAKE 2 TABLETS EVERY DAY Oral ly Once a day Active Vitamin D3 125 MCG (5000 UT) as directed Orally Daily for 90 day (s) Feb, Not-Taking Levocetirizine Dihydrochloride 5 MG TAKE 1 TABLET EVERY EVENING orally Daily Active Omeprazole 40 MG TAKE 1 CAPSULE EVERY DAY orally Daily Active Amoxicillin-Pot Clavulanate 875-125 MG 1 tablet Orally every 12 hrs for 7 days March, Not-Taking Famotidine 40 MG TAKE 1 TABLET AT BEDTIME orally at bedtime Active Toujeo SoloStar 300 UNIT/ML INJECT 100 UNITS SUBCUTANE OUSLY BEFORE BEDTIME Subcutaneous before bedtime for 90 day(s) Active Pravastatin Sodium 20 MG 1 tablet Orally Once a day for 90 day(s ) Jan, Active Cephalexin 500 MG 1 capsule Orally twice daily for 7 day(s) Oct, Not-Taking Amitriptyline HCl 10 MG TAKE 2 TABLETS ONE TIME DAILY Active Cefadroxil 500 MG 1 capsule Orally every 12 hrs for 7 day(s) Jul, Not-Taking Venlafaxine HCl 37.5 MG TAKE 1 TABLET TWICE DAILY WITH FOOD for 90 Active Invokana 300 MG 1 tablet before the first me al of the day Orally Once a day for 90 day(s) Active PROCEDURES No Information RESULTS No Results REASON FOR VISIT script for Gabapentin MEDICAL (GENERAL) HISTORY Type Description Date Medical [...] Notes Treatment Notes Treatm ent Clinical Notes Aug, Diabetic polyneuropathy asso ciated with type 2 diabetes mellitus (ICD-10 - E11.42) PLAN OF TREATMENT Medication Medication Name Sig Start Date Stop Date Gabapentin 300 MG take 1 capsule 8am, 1 capsul e 4pm, 2 capsules at bedtime orally TAKE 1 CAPSULE 8am, 1 capsule 4pm, 2 capsules at bedtime for 90 day(s) Insurance Providers Payer Name Payer Address Payer Phone Insured Name Patient Relati onship to Insured Coverage Start Date Coverage End Date [employer] [address] [address] [facility] [phone] KLAUS DELEON self MEDICARE Part A and B [address] [facility] [id number] [phone] KLAUS MUNOZ self
--- OUTSIDE RECORDS SUMMARY | 2021-10-21 13:19 | CCD ---
Author Author [facility] [employer] em[employer] Organization [facility] ems Address Unknown Phone Unavailable Care Team Providers Care Broiler Chef Or Cook Name Role Phone KarelDeandre moncadanzie Unavailable PROBLEMS Type Condition ICD9-CM Code [id number] Code Onset Dates Condition S tatus W/U Status Risk SNOMED Code Notes Problem Dysthymia F34.1 Active confirmed 44566693 Problem Seasonal allergic rhinitis, unspecified trigger J3 0.2 Active confirmed 805581268 Problem Controlled type 2 diabetes m ellitus without complication, without long- term current use of insulin E11.9 Active confirmed 31 0027481 Problem Type 2 diabetes mellitus with other skin ulcer E11 .622 Active confirmed 933264032 Problem Fibromyalgia M79.7 Active confirmed 4209483 05 Problem Venous stasis dermatitis of left lower extremity I 87.2 Active confirmed 33622679 Problem GERD without esophagitis K21.9 Active confirmed 554481158 Problem Diabetic polyneuropathy associated with type 2 d iabetes mellitus E11.42 Active confirmed 727602639 Problem Myalgia, other site M79.18 Active confirmed 81516287 Problem long term (current) use of insulin Z79.4 Activ e confirmed [id number] ALLERGIES No Known Allergies ENCOUNTERS from 1960 to 2021-09-27 Encounter Location Date Provider Diagnosis [facility] [id number] [place] [address] [place] [address] Sep, Jacey Vinson Diabetic polyneuropathy asso ciated with type 2 diabetes mellitus E11.42 ; Controlled type 2 diabetes mellitus without complication, without long-term current use of insulin E11.9 and Seasonal allergic rhinitis, unspecified trigger J30.2 IMMUNIZATIONS No Information SOCIAL HISTORY Tobacco Use: Social History Observation Description Date Details (start date - stop date) Former Smoker Sex Assigned At : Social History Observation Description Sex Assigned At Unknown Education: Question Answer Notes Level of Education: Finished High School Audit Question Answer Notes Total Score: 1 Interpretation: Alcohol Education Language: Question Answer Notes Languages spoken: Zambian Yazidism: Question Answer Notes Yazidism 21 Quaker Sexual Hx: Question Answer Notes Had sex [...] 10 MG as directed Orally A ctive Toujeo SoloStar 300 UNIT/ML INJECT 104 UNITS SUBCUTANE OUSLY BEFORE BEDTIME Subcutaneous before bedtime for 90 day(s) Active Pen [place] 32G X 5 MM as directed WEEKLY (TRULICITY) for 90 day(s) dispense brand covered by pt's insurnace Jan, Not-Asheri ng Gabapentin 300 MG take 1 capsule 8am, 1 capsul e 4pm, 2 capsules at bedtime orally TAKE 1 CAPSULE 8am, 1 capsule 4pm, 2 capsules at bedtime for 90 day(s) Active Trulicity 1.5 MG/0.5ML as directed Subcutaneous WEEKLY for 9 0 day(s) ICD10: E11.662 Jan, Active Omeprazole 40 MG TAKE 1 CAPSULE EVERY DAY orally Daily Active Diflucan 150 MG 1 tablet Orally once daily a s directed, repeat in 72 hours for 3 days prn Jul, Not-Taking Pramipexole Dihydrochloride 0.5 MG TAKE 2 TABLETS EVERY DAY Oral ly Once a day Active Cephalexin 500 MG 1 capsule Orally twice daily for 7 day(s) Oct, Not-Taking Venlafaxine HCl ER 150 MG TAKE 1 CAPSULE BY MOUTH EVER Y DAY WITH FOOD Orally Once a day for 90 day(s) Active Cefadroxil 500 MG 1 capsule Orally every 12 hrs for 7 day(s) Jul, Not-Taking Levocetirizine Dihydrochloride 5 MG TAKE 1 TABLET EVER Y EVENING orally Daily for 90 day(s) Active Vitamin D3 125 MCG (5000 UT) as directed Orally Daily for 90 day (s) Feb, Not-Taking tiZANidine HCl 4 MG TK 1 T PO TID PRN Oral Not-Taking Furosemide 40 MG TAKE 1 TABLET EVERY DAY N EEDED orally Daily as needed for fluid retention for 90 day(s) prn Ac tive Amoxicillin-Pot Clavulanate 875-125 MG 1 tablet Orally every 12 hrs for 7 days March, Not-Taking Amitriptyline HCl 10 MG TAKE 2 TABLETS ONE TIME DAILY Active Lidocaine HCl 5 % as directed Externally three times daily as ne eded Jul, Not-Taking Pravastatin Sodium 20 MG 1 tablet Orally Once a day for 90 day(s ) Jan, Active Famotidine 40 MG TAKE 1 TABLET AT BEDTIME orally at bedtime Active traZODone HCl 100 MG 1 tablet at bedtime Orally Once a day for 90 day (s) Active Venlafaxine HCl 37.5 MG TAKE 1 TABLET TWICE DAILY WITH FOOD for 90 Active Montelukast Sodium 10 MG TAKE 1 TABLET EVERY DAY orally Daily Active Invokana 300 MG 1 tablet before the first me al of the day Orally Once a day for 90 day(s) Active PROCEDURES No Information RESULTS No Results REASON FOR VISIT labs/increase LA insulin MEDICAL (GENERAL) HISTORY Type Description Date Medical [...] Treatment Notes Treatm ent Clinical Notes Sep, Diabetic polyneuropathy asso ciated with type 2 diabetes mellitus (ICD-10 - E11.42) Sep, Controlled type 2 diabetes m ellitus without complication, without long-term current use of insulin (ICD-10 - E11.9) Sep, Seasonal allergic rhinitis, unspecified trigger (ICD-10 - J30.2) PLAN OF TREATMENT Medication Medication Name Sig Start Date Stop Date Levocetirizine Dihydrochloride 5 MG TAKE 1 TABLET EVER Y EVENING orally Daily for 90 day(s) Venlafaxine HCl 37.5 MG TAKE 1 TABLET TWICE DAILY WITH FOOD for 90 Gabapentin 300 MG take 1 capsule 8am, 1 capsul e 4pm, 2 capsules at bedtime orally TAKE 1 CAPSULE 8am, 1 capsule 4pm, 2 capsules at bedtime for 90 day(s) Venlafaxine HCl ER 150 MG TAKE 1 CAPSULE BY MOUTH EVER Y DAY WITH FOOD Orally Once a day for 90 day(s) Toujeo SoloStar 300 UNIT/ML INJECT 104 UNITS SUBCUTANE OUSLY BEFORE BEDTIME Subcutaneous before bedtime for 90 day(s) Insurance Providers Payer Name Payer Address Payer Phone Insured Name Patient Relati onship to Insured Coverage Start Date Coverage End Date MEDICARE Part A and B [address] [facility] [phone] KLAUS MUNOZ self [facility] [address] [address] [facility] [address] KLAUS DELEON self
--- OUTSIDE RECORDS SUMMARY | 2021-10-21 13:19 | CCD ---
Author Author [facility] em[facility] Organization [facility] Address Unknown Phone Unavailable Care Team Providers Care Program Director/Music Director Name Role Phone Karel Jacey Unavailable PROBLEMS Type Condition ICD9-CM Code [id number] Code Onset Dates Condition S tatus W/U Status Risk SNOMED Code Notes Problem Dysthymia F34.1 Active confirmed 92665610 Problem Seasonal allergic rhinitis, unspecified trigger J3 0.2 Active confirmed 556568943 Problem Controlled type 2 diabetes m ellitus without complication, without long- term current use of insulin E11.9 Active confirmed 31 0049207 Problem Type 2 diabetes mellitus with other skin ulcer E11 .622 Active confirmed 120463615 Problem Fibromyalgia M79.7 Active confirmed 1832488 05 Problem Venous stasis dermatitis of left lower extremity I 87.2 Active confirmed 39562993 Problem GERD without esophagitis K21.9 Active confirmed 723084935 Problem Diabetic polyneuropathy associated with type 2 d iabetes mellitus E11.42 Active confirmed 225965810 Problem Myalgia, other site M79.18 Active confirmed 49076892 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 Activ e confirmed [id number] ALLERGIES No Known Allergies ENCOUNTERS from 1960 to 2021-09-05 Encounter Location Date Provider Diagnosis [address] [phone] [place] [address] 11 Aug, 2021 Jacey Vinson IMMUNIZATIONS No Information SOCIAL HISTORY Tobacco Use: Social History Observation Description Date Details (start date - stop date) Former Smoker Sex Assigned At : Social History Observation Description Sex Assigned At Unknown Education: Question Answer Notes Level of Education: Finished High School Audit Question Answer Notes Total Score: 1 Interpretation: Alcohol Education Language: Question Answer Notes Languages spoken: Moldovan Pentecostalism: Question Answer Notes Pentecostalism 21 Tenriism Sexual Hx: Question Answer Notes Had sex [...] at bedtime for 90 day(s) Active Pen [place] 32G X 5 MM as directed WEEKLY [...] Information RESULTS No Results REASON FOR VISIT wound clinic appt - FYI MEDICAL (GENERAL) HISTORY Type Description Date Medical [...] No Information FUNCTIONAL STATUS No Information ASSESSMENTS No Information PLAN OF TREATMENT Medication Medication Name Sig Start Date Stop Date Gabapentin 300 MG take 1 capsule 8am, 1 capsul e 4pm, 2 capsules at bedtime orally TAKE 1 CAPSULE 8am, 1 capsule 4pm, 2 capsules at bedtime for 90 day(s) Insurance Providers Payer Name Payer Address Payer Phone Insured Name Patient Relati onship to Insured Coverage Start Date Coverage End Date [facility] [address] [address] [facility] [phone] KLAUS DELEON self MEDICARE Part A and B [address] [facility] [address] [phone] KLAUS MUNOZ self
--- OUTSIDE RECORDS SUMMARY | 2021-10-21 13:19 | CCD ---
Author Author [facility] Organization [facility] Address Unknown Phone Unavailable Care Team Providers Care Armoured Car Escort Name Role Phone Karel Jacey Unavailable PROBLEMS Type Condition ICD9-CM Code MIB98-KE Code Onset Dates Condition S tatus W/U Status Risk SNOMED Code Notes Problem Dysthymia F34.1 Active confirmed 78879760 Problem Seasonal allergic rhinitis, unspecified trigger J3 0.2 Active confirmed 165195171 Problem Controlled type 2 diabetes m ellitus without complication, without long- term current use of insulin E11.9 Active confirmed 31 1063257 Problem Type 2 diabetes mellitus with other skin ulcer E11 .622 Active confirmed 234947549 Problem Fibromyalgia M79.7 Active confirmed 7865483 05 Problem Venous stasis dermatitis of left lower extremity I 87.2 Active confirmed 45763488 Problem GERD without esophagitis K21.9 Active confirmed 419725385 Problem Diabetic polyneuropathy associated with type 2 d iabetes mellitus E11.42 Active confirmed 070329683 Problem Myalgia, other site M79.18 Active confirmed 39599175 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 Activ e confirmed [id number] ALLERGIES No Known Allergies ENCOUNTERS from 1960 to 2021-09-26 Encounter Location Date Provider Diagnosis [address] [phone] [place] [address] Sep, Jacey Vinson IMMUNIZATIONS No Information SOCIAL HISTORY Tobacco Use: Social History Observation Description Date Details (start date - stop date) Former Smoker Sex Assigned At : Social History Observation Description Sex Assigned At Unknown Education: Question Answer Notes Level of Education: Finished High School Audit Question Answer Notes Total Score: 1 Interpretation: Alcohol Education Language: Question Answer Notes Languages spoken: Mexican Scientologist: Question Answer Notes Scientologist 21 Anglican Sexual Hx: Question Answer Notes Had sex [...] Notes Start Da te End Date Status Pen [place] 32G X 5 MM as directed WEEKLY (TRULICITY) for 90 day(s) dispense brand covered by pt's insurnace Jan, Not-Taki ng Gabapentin 300 MG take 1 capsule 8am, 1 capsul e 4pm, 2 capsules at bedtime orally TAKE 1 CAPSULE 8am, 1 capsule 4pm, 2 capsules at bedtime for 90 day(s) Active Invokana 300 MG 1 tablet before the first me al of the day Orally Once a day for 90 day(s) Active traZODone HCl 100 MG 1 tablet at bedtime Orally Once a day for 90 day (s) Active Diflucan 150 MG 1 tablet Orally once daily a s directed, repeat in 72 hours for 3 days prn Jul, Not-Taking Toujeo SoloStar 300 UNIT/ML INJECT 100 UNITS SUBCUTANE OUSLY BEFORE BEDTIME Subcutaneous before bedtime for 90 day(s) Active Melatonin 10 MG as directed Orally A ctive Montelukast Sodium 10 MG TAKE 1 TABLET EVERY DAY orally Daily Active Trulicity 1.5 MG/0.5ML as directed Subcutaneous WEEKLY for 9 0 day(s) ICD10: E11.662 Jan, Active Pramipexole Dihydrochloride 0.5 MG TAKE 2 TABLETS EVERY DAY Oral ly Once a day Active Furosemide 40 MG TAKE 1 TABLET EVERY DAY N EEDED orally Daily as needed for fluid retention for 90 day(s) prn Ac tive Cefadroxil 500 MG 1 capsule Orally every 12 hrs for 7 day(s) Jul, Not-Taking Levocetirizine Dihydrochloride 5 MG TAKE 1 TABLET EVERY EVENING orally Daily Active tiZANidine HCl 4 MG TK 1 T PO TID PRN Oral Not-Taking Lidocaine HCl 5 % as directed Externally three times daily as ne eded Jul, Not-Taking Pravastatin Sodium 20 MG 1 tablet Orally Once a day for 90 day(s ) Jan, Active Famotidine 40 MG TAKE 1 TABLET AT BEDTIME orally at bedtime Active Omeprazole 40 MG TAKE 1 CAPSULE EVERY DAY orally Daily Active Vitamin D3 125 MCG (5000 UT) as directed Orally Daily for 90 day (s) Feb, Not-Taking Cephalexin 500 MG 1 capsule Orally twice daily for 7 day(s) Oct, Not-Taking Amitriptyline HCl 10 MG TAKE 2 TABLETS ONE TIME DAILY Active Venlafaxine HCl 37.5 MG TAKE 1 TABLET TWICE DAILY WITH FOOD for 90 Active Venlafaxine HCl ER 150 MG TAKE 1 CAPSULE BY MOUTH EVER Y DAY WITH FOOD Orally Once a day for 90 day(s) Active Amoxicillin-Pot Clavulanate 875-125 MG 1 tablet Orally every 12 hrs for 7 days March, Not-Taking PROCEDURES No Information RESULTS No Results REASON FOR VISIT REFILL MEDICAL (GENERAL) HISTORY Type Description Date Medical [...] Medication Name Sig Start Date Stop Date Venlafaxine HCl ER 150 MG TAKE 1 CAPSULE BY MOUTH EVER Y DAY WITH FOOD Orally Once a day for 90 day(s) Venlafaxine HCl 37.5 MG [...] Coverage Start Date Coverage End Date [employer] [address] [address] [facility] [address] KLAUS DELEON self MEDICARE Part A and B [address] [facility] [id number] [phone] KLAUS MUNOZ self
--- OUTSIDE RECORDS SUMMARY | 2021-10-21 13:19 | CCD ---
Author Author [facility] [employer] ems Organization [facility] ems Address Unknown Phone Unavailable Care Team Providers Care Tape Cutter Name Role Phone KarelDeandre moncadanzie Unavailable PROBLEMS Type Condition ICD9-CM Code [id number] Code Onset Dates Condition S tatus W/U Status Risk SNOMED Code Notes Problem Dysthymia F34.1 Active confirmed 71570496 Problem Seasonal allergic rhinitis, unspecified trigger J3 0.2 Active confirmed 699997417 Problem Controlled type 2 diabetes m ellitus without complication, without long- term current use of insulin E11.9 Active confirmed 31 5949731 Problem Type 2 diabetes mellitus with other skin ulcer E11 .622 Active confirmed 656025406 Problem Fibromyalgia M79.7 Active confirmed 1593639 05 Problem Venous stasis dermatitis of left lower extremity I 87.2 Active confirmed 47265303 Problem GERD without esophagitis K21.9 Active confirmed 672347598 Problem Diabetic polyneuropathy associated with type 2 d iabetes mellitus E11.42 Active confirmed 234564160 Problem Myalgia, other site M79.18 Active confirmed 87094790 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 Activ e confirmed [id number] ALLERGIES No Known Allergies ENCOUNTERS from 1960 to 2021-10-08 Encounter Location Date Provider Diagnosis [address] [phone] [place] [address] 12 Sep, 2021 Jacey Vinson Pneumonia of lower lobe due to infectious organism, unspecified laterality J18.9 ; Controlled type 2 diabetes mellitus without complication, without long-term current use of insulin E11.9 ; GERD without esophagitis K21.9 ; Seasonal allergic rhinitis, unspecified trigger J30.2 ; Dysthymia F34.1 and alf (current) use of insulin Z79.4 IMMUNIZATIONS No Information SOCIAL HISTORY Tobacco Use: Social History Observation Description Date Details (start date - stop date) Former Smoker Sex Assigned At : Social History Observation Description Sex Assigned At Unknown Education: Question Answer Notes Level of Education: Finished High School Audit Question Answer Notes Total Score: 1 Interpretation: Alcohol Education Language: Question Answer Notes Languages spoken: Khmer Sabianist: Question Answer Notes Sabianist 21 Synagogue Sexual Hx: Question Answer Notes Had sex [...] REASON FOR REFERRAL No Information VITAL SIGNS Weight 338 lbs Sep, Weight-kg 153.32 kg Sep, Height 66 in Sep, BMI 54.55 kg/m2 Sep, Heart Rate 96 /min Sep, Respiratory Rate 20 /min Sep, Temperature 98.0 degrees Fahrenheit Sep, Oximetry 92 Sep, Blood pressure systolic 180 mm Hg Sep, Blood pressure diastolic 90 manually mm Hg Sep, MEDICATIONS Medication SIG (Take, Route, Frequency, Duration) Notes Start Da te End Date Status Venlafaxine HCl 37.5 MG TAKE 1 TABLET TWICE DAILY WITH FOOD Active Gabapentin 300 MG take 1 capsule 8am, 1 capsul e 4pm, 2 capsules at bedtime orally TAKE 1 CAPSULE 8am, 1 capsule 4pm, 2 capsules at bedtime for 90 day(s) Active Tojuvenal SoloStar 300 UNIT/ML INJECT 104 UNITS SUBCUTANE [...] hours for 4 days Sep, Active Pen [place] 32G X 5 MM as directed WEEKLY [...] Information RESULTS No Results REASON FOR VISIT LUNG EXAM/SEE TE MEDICAL (GENERAL) HISTORY Type Description Date Medical [...] Treatment Notes Treatm ent Clinical Notes Sep, Pneumonia of lower lobe due to infectious organism, unspecified laterality (ICD-10 - J18.9) Suspect pneumonia given exam and VS. Plan start abx and cxr for further evaluation. Stable at this time for outpatient managment, however discussed ED if increasing SOB. Sep, Controlled type 2 diabetes m kalinitus without complication, without long-term current use of insulin (ICD-10 - E11.9) For your diabetes continue to follow low fat, low cholesterol, no added salt diet. Exercise at least 150min/week. Your eye screening is due, schedule as we discussed. Your blood pressure is borderline elevated, will repeat when healthy. Goal for Hemoglobin A1C is 7-7.5%. She is not currently at goal, continue to increase LA insulin until FBG 160-180 as we discussed. Plan repeat hemoglobin a1c in 3 months. 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 Plan start abx and cxr for further evaluation. Stable at this time for outpatient managment, however discussed ED if increasing SOB. Controlled type 2 diabetes mellitus with out complication, without long-term current use of insulin For your diabetes continue t o follow low fat, low cholesterol, no added salt diet. Exercise at least 150min/week. Your eye screening is due, schedule as we discussed. Your blood pressure is borderline e levated, will repeat when healthy. Goal for Hemoglobin A1C is 7-7.5%. She is not currently at goal, continue to increase LA insulin until FBG 160-180 as we discussed. Plan repeat hemoglobin a1c in 3 months. 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 [phone] KLAUS MUNOZ self [employer] GOLD [address] [address] [facility] [address] JANIYA DELEONTI J self
--- OUTSIDE RECORDS SUMMARY | 2021-10-21 13:19 | CCD ---
Author Author [facility] Organization [facility] Address Unknown Phone Unavailable Care Team Providers Care Rn Orthopedic Name Role Phone Karel Jacey Unavailable PROBLEMS Type Condition ICD9-CM Code [id number] Code Onset Dates Condition S tatus W/U Status Risk SNOMED Code Notes Problem Dysthymia F34.1 Active confirmed 36936020 Problem Seasonal allergic rhinitis, unspecified trigger J3 0.2 Active confirmed 216330186 Problem Controlled type 2 diabetes m ellitus without complication, without long- term current use of insulin E11.9 Active confirmed 31 0500578 Problem Type 2 diabetes mellitus with other skin ulcer E11 .622 Active confirmed 406157984 Problem Fibromyalgia M79.7 Active confirmed 0892001 05 Problem Venous stasis dermatitis of left lower extremity I 87.2 Active confirmed 52224063 Problem GERD without esophagitis K21.9 Active confirmed 701710942 Problem Diabetic polyneuropathy associated with type 2 d iabetes mellitus E11.42 Active confirmed 172124927 Problem Myalgia, other site M79.18 Active confirmed 40688735 Problem 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.4 Activ e confirmed [id number] ALLERGIES No Known Allergies ENCOUNTERS from 1960 to 2021-09-13 Encounter Location Date Provider Diagnosis [address] [phone] [place] [address] 18 Aug, 2021 Jacey Vinson IMMUNIZATIONS No Information SOCIAL HISTORY Tobacco Use: Social History Observation Description Date Details (start date - stop date) Former Smoker Sex Assigned At : Social History Observation Description Sex Assigned At Unknown Education: Question Answer Notes Level of Education: Finished High School Audit Question Answer Notes Total Score: 1 Interpretation: Alcohol Education Language: Question Answer Notes Languages spoken: Turkish Jainism: Question Answer Notes Jainism 21 Anabaptist Sexual Hx: Question Answer Notes Had sex [...] at bedtime for 90 day(s) Active Pen [place] 32G X 5 MM as directed WEEKLY [...] Information RESULTS No Results REASON FOR VISIT Leg MEDICAL (GENERAL) HISTORY Type Description Date Medical [...] Part A and B [address] [facility] [address] KLAUS MUNOZ self [facility] [address] [address] [facility] [address] KLAUS DELEON self
--- OUTSIDE RECORDS SUMMARY | 2021-10-21 13:20 | CCD ---
Author Author [facility] Organization [facility] Address Unknown Phone Unavailable Care Team Providers Care Riprap Placing Supervisor Name Role Phone Deandre Vinsonnzie Unavailable PROBLEMS Type Condition ICD9-CM Code [id number] Code Onset Dates Condition S tatus W/U Status Risk SNOMED Code Notes Problem Fibromyalgia M79.7 Active confirmed 6111912 05 Problem Dysthymia F34.1 Active confirmed 83323321 Problem Seasonal allergic rhinitis, unspecified trigger J3 0.2 Active confirmed 305434763 Problem [facility] (current) use of insulin Z79.4 Activ e confirmed 690083884 Problem Type 2 diabetes mellitus with other skin ulcer E11 .622 Active confirmed 089150011 Problem Controlled type 2 diabetes m ellitus without complication, without long- term current use of insulin E11.9 Active confirmed 31 5980949 Problem GERD without esophagitis K21.9 Active confirmed 874239159 Problem Diabetic polyneuropathy associated with type 2 d iabetes mellitus E11.42 Active confirmed 938280110 Problem Myalgia, other site M79.18 Active confirmed 53266170 ALLERGIES No Known Allergies ENCOUNTERS from 1960 to 2021-07-26 Encounter Location Date Provider Diagnosis [address] [phone] [place] [address] Jun, Jacey Vinson Cellulitis of left lower ext remity L03.116 ; Type 2 diabetes mellitus with other skin ulcer E11.622 ; [facility] (current) use of insulin Z79.4 and Screening for hyperlipidemia Z13.220 IMMUNIZATIONS No Information SOCIAL HISTORY Tobacco Use: Social History Observation Description Date Details (start date - stop date) Former Smoker Sex Assigned At : Social History Observation Description Sex Assigned At Unknown Education: Question Answer Notes Level of Education: Finished High School Audit Question Answer Notes Total Score: 1 Interpretation: Alcohol Education Language: Question Answer Notes Languages spoken: Latvian Temple: Question Answer Notes Temple 21 Yarsanism Sexual Hx: Question Answer Notes Had sex [...] former smoker quit 2007 REASON FOR REFERRAL from 1961 to 2021-07-26 Reason 60yo female w/ LLE celluliti s (3 episodes this year), therapeutic reponse to cephalexin w/ exception of current episode, doppler US unremarkable, pls further eval/tx accordingly Diagnosis 1 Cellulitis of left lower ext remity (L03.116) Referral Organization [facility] [place] Referring Provider First Name Jacey Referring Provider Last Name Karel Referring Provider Specialty Family Medicine Referred Organization [facility] Wound Care Referred Provider Miah Leon Referred Address [phone] ,[place], [place],[address] Referred Provider Specialty Wound Care Referral Priority Urgent General Notes Bobbi Don 07/26/2021 4:41 :24 PM > Sent VITAL SIGNS No information MEDICATIONS Medication SIG (Take, Route, Frequency, Duration) Notes Start Da te End Date Status Pramipexole Dihydrochloride 0.5 MG TAKE 2 TABLETS EVERY DAY Oral ly Once a day Active Levocetirizine Dihydrochloride 5 MG TAKE 1 TABLET EVERY EVENING orally Daily Active Furosemide 40 MG TAKE 1 TABLET EVERY DAY N EEDED orally Daily as needed for fluid retention for 90 day(s) prn Ac tive Amoxicillin-Pot Clavulanate 875-125 MG 1 tablet Orally every 12 hrs for 7 days March, Active Cephalexin 500 MG 1 capsule Orally twice daily for 7 day(s) Oct, Active traZODone HCl 100 MG 1 tablet at bedtime Orally Once a day for 90 day (s) Active Lidocaine HCl 5 % as directed Externally three times daily as ne eded Jul, Active Omeprazole 40 MG TAKE 1 CAPSULE EVERY DAY orally Daily Active Famotidine 40 MG TAKE 1 TABLET AT BEDTIME orally at bedtime Active Invokana 300 MG 1 tablet before the first me al of the day Orally Once a day for 90 day(s) Active Toujeo SoloStar 300 UNIT/ML INJECT 100 UNITS SUBCUTANE OUSLY BEFORE BEDTIME Subcutaneous before bedtime for 90 day(s) Active Venlafaxine HCl ER 150 MG 1 capsule with food Orally Once a day for 30 days Active Pen [place] 32G X 5 MM as directed WEEKLY (TRULICITY) for 90 day(s) dispense brand covered by pt's insurnace Jan, Active Vitamin D3 125 MCG (5000 UT) as directed Orally Daily for 90 day (s) Feb, Active Gabapentin 300 MG take 1 capsule 8am, 1 capsul e 4pm, 2 capsules at bedtime orally TAKE 1 CAPSULE 8am, 1 capsule 4pm, 2 capsules at bedtime for 90 day(s) Active Montelukast Sodium 10 MG TAKE 1 TABLET EVERY DAY orally Daily Active Venlafaxine HCl 37.5 MG 1 tablet with food Orally bid for 90 day(s) Active Diflucan 150 MG 1 tablet Orally once daily a s directed, repeat in 72 hours for 3 days prn Jul, Active Cefadroxil 500 MG 1 capsule Orally every 12 hrs for 7 day(s) Jul, Active Trulicity 1.5 MG/0.5ML as directed Subcutaneous WEEKLY for 9 0 day(s) ICD10: E11.662 Jan, Active Amitriptyline HCl 10 MG TAKE 2 TABLETS ONE TIME DAILY Active Pravastatin Sodium 20 MG 1 tablet Orally Once a day for 90 day(s ) Jan, Active tiZANidine HCl 4 MG TK 1 T PO TID PRN Oral Active PROCEDURES No Information RESULTS No Results REASON FOR VISIT left leg MEDICAL (GENERAL) HISTORY Type Description Date Medical [...] Notes Treatment Notes Treatm ent Clinical Notes Jun, Cellulitis of left lower extremity (ICD-10 - L03 .116) Jun, Type 2 diabetes mellitus with other skin ulcer (ICD-10 - E11.622) Jun, 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 (ICD-10 - Z79 .4) Jun, Screening for hyperlipidemia (ICD-10 - Z13.220) PLAN OF TREATMENT Medication Medication Name Sig Start Date Stop Date Toujeo SoloStar 300 UNIT/ML INJECT 100 UNITS SUBCUTANE OUSLY BEFORE BEDTIME Subcutaneous before bedtime for 90 day(s) Amitriptyline HCl 10 MG TAKE 2 TABLETS ONE TIME DAILY Invokana 300 MG 1 tablet before the first me al of the day Orally Once a day for 90 day(s) Famotidine 40 MG TAKE 1 TABLET AT BEDTIME orally at bedtime Diflucan 150 MG 1 tablet Orally once daily a s directed, repeat in 72 hours for 3 days Jul, Omeprazole 40 MG TAKE 1 CAPSULE EVERY DAY orally Daily Venlafaxine HCl ER 150 MG 1 capsule with food Orally Once a day for 30 days Amoxicillin-Pot Clavulanate 875-125 MG 1 tablet Orally every 12 hrs for 7 days March, Montelukast Sodium 10 MG TAKE 1 TABLET EVERY DAY orally Daily Cefadroxil 500 MG 1 capsule Orally every 12 hrs for 7 day(s) Jul, Venlafaxine HCl 37.5 MG 1 tablet with food Orally bid for 90 day (s) Pravastatin Sodium 20 MG 1 tablet Orally Once a day for 90 day(s ) Jan, Trulicity 1.5 MG/0.5ML as directed Subcutaneous WEEKLY for 9 0 day(s) Jan, Pen [place] 32G X 5 MM as directed WEEKLY (TRULICITY) for 90 day(s) Jan, Cephalexin 500 MG 1 capsule Orally twice daily for 7 day(s) 03 D 2019 Gabapentin 300 MG take 1 capsule 8am, 1 capsul e 4pm, 2 capsules at bedtime orally TAKE 1 CAPSULE 8am, 1 capsule 4pm, 2 capsules at bedtime for 90 day(s) Furosemide 40 MG TAKE 1 TABLET EVERY DAY N EEDED orally Daily as needed for fluid retention for 90 day(s) Levocetirizine Dihydrochloride 5 MG TAKE 1 TABLET EVERY EVENING orally Daily tiZANidine HCl 4 MG TK 1 T PO TID PRN Oral traZODone HCl 100 MG 1 tablet at bedtime Orally Once a day for 9 0 day(s) Pramipexole Dihydrochloride 0.5 MG TAKE 2 TABLETS EVERY DAY Oral ly Once a day Future Test Test Name Order Date CBC with Differential [id number] Comprehensive Metabolic Profile (CMP) 20210726 LIPID PANEL (CARDIAC RISK) 20210726 HEMOGLOBIN A1c 20210726 MICROALBUMIN RANDOM [id number] Referrals Referral Date Details 60yo female w/ LLE celluliti s (3 episodes this year), therapeutic reponse to cephalexin w/ exception of current episode, doppler US unremarkable, pls further eval/tx accordingly, Miah Leon, [address], [place], [address], Insurance Providers Payer Name Payer Address Payer Phone Insured Name Patient Relati onship to Insured Coverage Start Date Coverage End Date [employer] [address] [address] [facility] [address] KLAUS DELEON MEDICARE Part A and B [address] [facility] [address] [phone] KLAUS MUNOZ self
--- OUTSIDE RECORDS SUMMARY | 2021-10-21 13:20 | CCD ---
Author Author [facility] Organization [facility] Address Unknown Phone Unavailable Care Team Providers Care Technical Instructor Name Role Phone Karel Jacey Unavailable PROBLEMS Type Condition ICD9-CM Code [id number] Code Onset Dates Condition S tatus W/U Status Risk SNOMED Code Notes Problem Fibromyalgia M79.7 Active confirmed 4237478 05 Problem Dysthymia F34.1 Active confirmed 62864177 Problem Seasonal allergic rhinitis, unspecified trigger J3 0.2 Active confirmed 293782767 Problem [facility] (current) use of insulin Z79.4 Activ e confirmed 976138549 Problem Type 2 diabetes mellitus with other skin ulcer E11 .622 Active confirmed 904716026 Problem Controlled type 2 diabetes m ellitus without complication, without long- term current use of insulin E11.9 Active confirmed 31 9709207 Problem GERD without esophagitis K21.9 Active confirmed 978996627 Problem Diabetic polyneuropathy associated with type 2 d iabetes mellitus E11.42 Active confirmed 814345217 Problem Myalgia, other site M79.18 Active confirmed 65886689 ALLERGIES No Known Allergies ENCOUNTERS from 1960 to 2021-08-02 Encounter Location Date Provider Diagnosis [address] [phone] [place] [address] Jul, Jacey Vinson IMMUNIZATIONS No Information SOCIAL HISTORY Tobacco Use: Social History Observation Description Date Details (start date - stop date) Former Smoker Sex Assigned At : Social History Observation Description Sex Assigned At Unknown Education: Question Answer Notes Level of Education: Finished High School Audit Question Answer Notes Total Score: 1 Interpretation: Alcohol Education Language: Question Answer Notes Languages spoken: Cook Islander Confucianism: Question Answer Notes Confucianism 21 Nondenominational Sexual Hx: Question Answer Notes Had sex [...] 12 hrs for 7 days March, Active Pen [place] 32G X 5 MM as directed WEEKLY (TRULICITY) for 90 day(s) dispense brand covered by pt's insurnace Jan, Active traZODone HCl 100 MG 1 tablet [...] Once a day for 30 days Active Venlafaxine HCl 37.5 MG TAKE 1 TABLET TWICE DAILY WITH FOOD for 90 Active Vitamin D3 125 MCG (5000 UT) as directed Orally Daily for 90 day (s) Feb, Active Gabapentin 300 MG take 1 capsule 8am, 1 capsul e 4pm, 2 capsules at bedtime orally TAKE 1 CAPSULE 8am, 1 capsule 4pm, 2 capsules at bedtime for 90 day(s) Active Montelukast Sodium 10 MG TAKE 1 TABLET EVERY DAY orally Daily Active Cephalexin 500 MG 1 capsule Orally twice daily for 7 day(s) Oct, Active Diflucan 150 MG 1 tablet Orally [...] Information RESULTS No Results REASON FOR VISIT Guidance/Consult MEDICAL (GENERAL) HISTORY Type Description Date Medical [...] every 12 hrs for 7 day(s) Jul, Cephalexin 500 MG 1 capsule Orally twice daily for 7 day(s) 2019 Pravastatin Sodium 20 MG 1 tablet Orally Once a day for 90 day(s ) Jan, Trulicity 1.5 MG/0.5ML as directed Subcutaneous WEEKLY for 9 0 day(s) Jan, Venlafaxine HCl 37.5 MG TAKE 1 TABLET TWICE DAILY WITH FOOD for 90 Pen [place] 32G X 5 MM as directed WEEKLY (TRULICITY) for 90 day(s) Jan, Gabapentin 300 MG take 1 capsule 8am, [...] EVERY DAY Oral ly Once a day Next Appt Details Provider Name:Miah Leon, 09:00:00 AM, [address], , [place], [address], Insurance Providers Payer Name Payer Address Payer Phone Insured Name Patient Relati onship to Insured Coverage Start Date Coverage End Date MEDICARE Part A and B [address] [facility] [address] [phone] KLAUS MUNOZ self [facility] [address] [address] [facility] [address] KLAUS DELEON self
--- OUTSIDE RECORDS SUMMARY | 2021-10-21 13:20 | CCD ---
Author Author [facility] Organization [facility] Address Unknown Phone Unavailable Care Team Providers Care Die Lay Out Worker Name Role Phone Karel Jacey Unavailable PROBLEMS Type Condition ICD9-CM Code [id number] Code Onset Dates Condition S tatus W/U Status Risk SNOMED Code Notes Problem Fibromyalgia M79.7 Active confirmed 6556246 05 Problem Dysthymia F34.1 Active confirmed 40310179 Problem Seasonal allergic rhinitis, unspecified trigger J3 0.2 Active confirmed 278108673 Problem snf (current) use of insulin Z79.4 Activ e confirmed 232377787 Problem Type 2 diabetes mellitus with other skin ulcer E11 .622 Active confirmed 421755132 Problem Controlled type 2 diabetes m ellitus without complication, without long- term current use of insulin E11.9 Active confirmed 31 7167703 Problem GERD without esophagitis K21.9 Active confirmed 324871720 Problem Diabetic polyneuropathy associated with type 2 d iabetes mellitus E11.42 Active confirmed 873701755 Problem Myalgia, other site M79.18 Active confirmed 40655135 ALLERGIES No Known Allergies ENCOUNTERS from 1960 to 2021-08-05 Encounter Location Date Provider Diagnosis [address] [phone] [place] [address] Jul, Jacey Vinson IMMUNIZATIONS No Information SOCIAL HISTORY Tobacco Use: Social History Observation Description Date Details (start date - stop date) Former Smoker Sex Assigned At : Social History Observation Description Sex Assigned At Unknown Education: Question Answer Notes Level of Education: Finished High School Audit Question Answer Notes Total Score: 1 Interpretation: Alcohol Education Language: Question Answer Notes Languages spoken: Mosotho Religious: Question Answer Notes Religious 21 Denominational Sexual Hx: Question Answer Notes Had sex [...] hrs for 7 days March, Active Pen [place] 32G X 5 MM as directed WEEKLY [...] TWICE DAILY WITH FOOD for 90 Pen [place] 32G X 5 MM as directed WEEKLY [...] [address], , [place], [address], Insurance Providers Payer Name Payer Address Payer Phone Insured Name Patient Relati onship to Insured Coverage Start Date Coverage End Date [facility] [id number] [place] [phone] KLAUS DELEON self MEDICARE Part A and B [address] [facility] [address] [phone] KLAUS MUNOZ self
--- OUTSIDE RECORDS SUMMARY | 2021-10-21 13:20 | CCD ---
Author Author [facility] Organization [facility] Address Unknown Phone Unavailable Support Name Relationship Address Phone DISABLED Next Of Kin Unknown Unavailable UE Next Of Kin Unknown Unavailable ALEXANDER PAULINO Next Of Kin [address] [place] [address] ALEXANDERCYNTHIA Next Of Kin [address] [place] [address] MUNOZCYNTHIA ECON [address] [place] [address] [phone] Re-disclosure Warning The records that you are about to access may contain information from federally-assisted alcohol or drug abuse programs. If such information is present, then the following federally mandated warning applies: This information has been disclosed to you from records protected by federal confidentiality rules (42 CFR part 2). The federal rules prohibit you from making any further disclosure of this information unless further disclosure is expressly permitted by the written consent of the person to whom it pertains or as otherwise permitted by 42 CFR part 2. A general authorization for the release of medical or other information is NOT sufficient for this purpose. The Federal rules restrict any use of the information to criminally investigate or prosecute any alcohol or drug abuse patient.The records that you are about to access may contain highly sensitive health information, the redisclosure of which is protected by Article 27-F of the [facility] Public Health law. If you continue you may have access to information: Regarding HIV / AIDS; Provided by facilities licensed or operated by the [facility] Office of Mental Health; or Provided by the [facility] Office for People With Developmental Disabilities. If such information is present, then the following [facility] mandated warning applies: This information has been disclosed to you from confidential records which are protected by state law. State law prohibits you from making any further disclosure of this information without the specific written consent of the person to whom it pertains, or as otherwise permitted by law. Any unauthorized further disclosure in violation of state law may result in a fine or alf sentence or both. A general authorization for the release of medical or other information is NOT sufficient authorization for further disc losure. Family History Family Member Name Family Member Gender Family Member Status Date o f Status Description Data Source(s) Unknown Female Problem MEDENT ([facility]) Unknown Female Problem MEDENT ([facility], ) Unknown Unknown Problem MEDENT (Solomon Solomon MD, ) Encounters Encounter Providers Location Date Indications Data Source(s ) [place] [address] [facility] [address] 10/04/2021 12:00:00 AM EST [facility] Unknown [address] [facility] [place] [address] 10/03/2021 12:00:00 AM EST eCW1 [facility] [place] Unknown [address] [facility] [place] [address] 09/27/2021 12:00:00 AM EDT eCW1 [facility] [place] [address] [facility] [address] [place] [address] 09/25/2021 12:00:00 AM EDT eCW1 [facility]) [place] [address] [facility] [place] [address] 09/23/2021 12:00:00 AM EDT eCW1 [facility] [place] [address] [facility] [place] [address] 09/09/2021 12:00:00 AM EDT eCW1 [facility] [place] [address] [facility] [place] [address] 09/03/2021 12:00:00 AM EDT eCW1 [facility] [place] [address] [facility] [address] [place] [address] 09/02/2021 12:00:00 AM EDT eCW1 [facility] Unknown [address] [facility] [place] [address] 08/01/2021 12:00:00 AM EDT [facility]CW1 ([facility]) [place] [address] [facility] [address] 07/26/2021 12:00:00 AM EDT eCW1 ([facility]) [place] [address] [facility] [address] 07/23/2021 12:00:00 AM EDT eCW1 ([facility]) [place] [address] [facility] [address] 07/11/2021 12:00:00 AM EDT eCW1 ([facility]) [place] [address] [facility] [address] 07/05/2021 12:00:00 AM EDT eCW1 ([facility]) [place] [address] [facility] [address] 06/07/2021 12:00:00 AM EDT eCW1 ([facility]) [place] [address] [facility] [place] [address] 04/17/2021 12:00:00 AM EDT eCW1 ([facility]) [place] [address] [facility] [address] 04/15/2021 12:00:00 AM EDT eCW1 ([facility]) [place] [address] [facility] [address] 04/04/2021 12:00:00 AM EDT eCW1 ([facility]) [place] [address] [facility] [address] 04/01/2021 12:00:00 AM EDT eCW1 ([facility]) [place] [address] [facility] [place] [address] 03/30/2021 12:00:00 AM EDT eCW1 ([facility]) [place] [address] [facility] [address] 03/25/2021 12:00:00 AM EDT eCW1 ([facility]) [place] [address] [facility] [place] [address] 03/18/2021 12:00:00 AM EDT [facility]CW1 [facility] [place] [address] [facility] [place] [address] 03/18/2021 12:00:00 AM EDT eCW1 [facility] [place] [address] [facility] [address] [place] [address] 02/08/2021 12:00:00 AM EDT eCW1 [facility] [place] [address] [facility] [place] [address] 02/01/2021 12:00:00 AM EST [facility]CW1 [facility] [place] [address] [facility] [address] 12/31/2020 12:00:00 AM EST [facility]CW1 [facility] [place] [address] [facility] [place] [address] 12/18/2020 12:00:00 AM EST eCW1 [facility] [place] [address] [facility] [address] 11/30/2020 12:00:00 AM EST [facility]CW1 [facility] [place] [address] [facility] [address] 11/13/2020 12:00:00 AM EST [facility]CW1 [facility] [place] [address] [facility] [place] [address] 11/01/2020 12:00:00 AM EST [facility]CW1 [facility] [place] [address] [facility] [place] [address] 10/24/2020 12:00:00 AM EST [facility]CW1 [facility] [place] [address] [facility] [address] 09/18/2020 12:00:00 AM EDT eCW1 [facility] Medications Medication Brand Name Start Date Product Form Dose Route Admi nistrative Instructions Pharmacy Instructions Status Indications Reaction Description Data Source(s) Fluconazole 150 MG Oral Tablet Fluconazole 150 MG 10/04/2021 12:00: 00 AM EST 1.0 {tablet} active Fluconazole 150 MG eCW1 ([facility]) Doxycycline Monohydrate 100 MG Oral Capsule Doxycycline Morrison hydrate 100 MG 10/04/2021 12:00:00 AM EST 1.0 {capsule} active Doxycycline Monohydrate 100 MG eCW1 ([facility]) Doxycycline Monohydrate 100 MG Oral Capsule Doxycycline Morrison hydrate 100 MG 10/04/2021 12:00:00 AM EST 1.0 {capsule} active Doxycycline Monohydrate 100 MG eCW1 ([facility]) Fluconazole 150 MG Oral Tablet Fluconazole 150 MG 10/04/2021 12:00: 00 AM EST 1.0 {tablet} active Fluconazole 150 MG eCW1 ([facility]) Cefadroxil 500 MG Oral Capsule Cefadroxil 500 MG 07/26/2021 12:00:0 0 AM EDT 1.0 {capsule} suspended Cefadroxil 500 M G eCW1 ([facility]) Cefadroxil 500 MG Oral Capsule Cefadroxil 500 MG 07/26/2021 12:00:0 0 AM EDT 1.0 {capsule} suspended Cefadroxil 500 M G eCW1 ([facility]) Cefadroxil 500 MG Oral Capsule Cefadroxil 500 MG 07/26/2021 12:00:0 0 AM EDT 1.0 {capsule} active Cefadroxil 500 MG eCW1 ([facility]) Cefadroxil 500 MG Oral Capsule Cefadroxil 500 MG 07/26/2021 12:00:0 0 AM EDT 1.0 {capsule} active Cefadroxil 500 MG eCW1 ([facility]) Cefadroxil 500 MG Oral Capsule Cefadroxil 500 MG 07/26/2021 12:00:0 0 AM EDT 1.0 {capsule} suspended Cefadroxil 500 M G eCW1 ([facility]) Cefadroxil 500 MG Oral Capsule Cefadroxil 500 MG 07/26/2021 12:00:0 0 AM EDT 1.0 {capsule} active Cefadroxil 500 MG eCW1 ([facility]) Cefadroxil 500 MG Oral Capsule Cefadroxil 500 MG 07/26/2021 12:00:0 0 AM EDT 1.0 {capsule} suspended Cefadroxil 500 M G eCW1 ([facility]) Cefadroxil 500 MG Oral Capsule Cefadroxil 500 MG 07/26/2021 12:00:0 0 AM EDT 1.0 {capsule} suspended Cefadroxil 500 M G eCW1 ([facility]) Cefadroxil 500 MG Oral Capsule Cefadroxil 500 MG 07/26/2021 12:00:0 0 AM EDT 1.0 {capsule} suspended Cefadroxil 500 M G eCW1 ([facility]) Cefadroxil 500 MG Oral Capsule Cefadroxil 500 MG 07/26/2021 12:00:0 0 AM EDT 1.0 {capsule} suspended Cefadroxil 500 M G eCW1 ([facility]) Cefadroxil 500 MG Oral Capsule Cefadroxil 500 MG 07/26/2021 12:00:0 0 AM EDT 1.0 {capsule} suspended Cefadroxil 500 M G eCW1 ([facility]) Amoxicillin 875 MG / Clavulanate 125 MG Oral Tablet Amoxicillin-Pot Clavulanate 875-125 MG Amoxicillin-Pot Clavulanate 875-125 MG 04/15/2021 12:00:00 AM ED T 1.0 {tablet} suspended Amoxicillin-Pot C lavulanate 875-125 MG eCW1 ([facility]) Amoxicillin 875 MG / Clavulanate 125 MG Oral Tablet Amoxicillin-Pot Clavulanate 875-125 MG Amoxicillin-Pot Clavulanate 875-125 MG 04/15/2021 12:00:00 AM ED T 1.0 {tablet} active Amoxicillin-Pot Cla vulanate 875-125 MG eCW1 ([facility]) Amoxicillin 875 MG / Clavulanate 125 MG Oral Tablet Amoxicillin-Pot Clavulanate 875-125 MG Amoxicillin-Pot Clavulanate 875-125 MG 04/15/2021 12:00:00 AM ED T 1.0 {tablet} suspended Amoxicillin-Pot C lavulanate 875-125 MG eCW1 ([facility]) Amoxicillin 875 MG / Clavulanate 125 MG Oral Tablet Amoxicillin-Pot Clavulanate 875-125 MG Amoxicillin-Pot Clavulanate 875-125 MG 04/15/2021 12:00:00 AM ED T 1.0 {tablet} active Amoxicillin-Pot Cla vulanate 875-125 MG eCW1 ([facility]) Amoxicillin 875 MG / Clavulanate 125 MG Oral Tablet Amoxicillin-Pot Clavulanate 875-125 MG Amoxicillin-Pot Clavulanate 875-125 MG 04/15/2021 12:00:00 AM ED T 1.0 {tablet} active Amoxicillin-Pot Cla vulanate 875-125 MG eCW1 ([facility]) Amoxicillin 875 MG / Clavulanate 125 MG Oral Tablet Amoxicillin-Pot Clavulanate 875-125 MG Amoxicillin-Pot Clavulanate 875-125 MG 04/15/2021 12:00:00 AM ED T 1.0 {tablet} suspended Amoxicillin-Pot C lavulanate 875-125 MG eCW1 ([facility]) Amoxicillin 875 MG / Clavulanate 125 MG Oral Tablet Amoxicillin-Pot Clavulanate 875-125 MG Amoxicillin-Pot Clavulanate 875-125 MG 04/15/2021 12:00:00 AM ED T 1.0 {tablet} suspended Amoxicillin-Pot C lavulanate 875-125 MG eCW1 ([facility]) Amoxicillin 875 MG / Clavulanate 125 MG Oral Tablet Amoxicillin-Pot Clavulanate 875-125 MG Amoxicillin-Pot Clavulanate 875-125 MG 04/15/2021 12:00:00 AM ED T 1.0 {tablet} active Amoxicillin-Pot Cla vulanate 875-125 MG eCW1 ([facility]) Amoxicillin 875 MG / Clavulanate 125 MG Oral Tablet Amoxicillin-Pot Clavulanate 875-125 MG Amoxicillin-Pot Clavulanate 875-125 MG 04/15/2021 12:00:00 AM ED T 1.0 {tablet} suspended Amoxicillin-Pot C lavulanate 875-125 MG eCW1 ([facility]) Amoxicillin 875 MG / Clavulanate 125 MG Oral Tablet Amoxicillin-Pot Clavulanate 875-125 MG Amoxicillin-Pot Clavulanate 875-125 MG 04/15/2021 12:00:00 AM ED T 1.0 {tablet} suspended Amoxicillin-Pot C lavulanate 875-125 MG eCW1 ([facility]) Amoxicillin 875 MG / Clavulanate 125 MG Oral Tablet Amoxicillin-Pot Clavulanate 875-125 MG Amoxicillin-Pot Clavulanate 875-125 MG 04/15/2021 12:00:00 AM ED T 1.0 {tablet} active Amoxicillin-Pot Cla vulanate 875-125 MG eCW1 ([facility]) Amoxicillin 875 MG / Clavulanate 125 MG Oral Tablet Amoxicillin-Pot Clavulanate 875-125 MG Amoxicillin-Pot Clavulanate 875-125 MG 04/15/2021 12:00:00 AM ED T 1.0 {tablet} active Amoxicillin-Pot Cla vulanate 875-125 MG eCW1 ([facility]) Amoxicillin 875 MG / Clavulanate 125 MG Oral Tablet Amoxicillin-Pot Clavulanate 875-125 MG Amoxicillin-Pot Clavulanate 875-125 MG 04/15/2021 12:00:00 AM ED T 1.0 {tablet} suspended Amoxicillin-Pot C lavulanate 875-125 MG eCW1 ([facility]) Amoxicillin 875 MG / Clavulanate 125 MG Oral Tablet Amoxicillin-Pot Clavulanate 875-125 MG Amoxicillin-Pot Clavulanate 875-125 MG 04/15/2021 12:00:00 AM ED T 1.0 {tablet} active Amoxicillin-Pot Cla vulanate 875-125 MG eCW1 ([facility]) Amoxicillin 875 MG / Clavulanate 125 MG Oral Tablet Amoxicillin-Pot Clavulanate 875-125 MG Amoxicillin-Pot Clavulanate 875-125 MG 04/15/2021 12:00:00 AM ED T 1.0 {tablet} active Amoxicillin-Pot Cla vulanate 875-125 MG eCW1 ([facility]) Amoxicillin 875 MG / Clavulanate 125 MG Oral Tablet Amoxicillin-Pot Clavulanate 875-125 MG Amoxicillin-Pot Clavulanate 875-125 MG 04/15/2021 12:00:00 AM ED T 1.0 {tablet} suspended Amoxicillin-Pot C lavulanate 875-125 MG eCW1 ([facility]) Pen Hooven 32G X 5 MM Pen Hooven 32G X 5 MM 02/01/2021 12:00:[address] suspended Pen Hooven 32G X 5 MM eC W1 ([facility]) 0.5 ML dulaglutide 3 MG/ML Auto-Injector [Trulicity] T rulicity 1.5 MG/0.5ML Trulicity 1.5 MG/0.5ML 02/01/2021 12:00:00 AM EST active Trulicity 1.5 MG/0.5ML eCW1 ([facility]) Pen Hooven 32G X 5 MM Pen [place]oven 32G X 5 MM 02/01/2021 12:00:[address] active Pen Hooven 32G X 5 MM eC W1 ([facility]) Pravastatin Sodium 20 MG Oral Tablet Pravastatin Sodium 20 M G 02/01/2021 12:00:00 AM EST 1.0 {tablet} active Pr avastatin Sodium 20 MG eCW1 ([facility]) Pravastatin Sodium 20 MG Oral Tablet Pravastatin Sodium 20 M G 02/01/2021 12:00:00 AM EST 1.0 {tablet} active Pr avastatin Sodium 20 MG eCW1 ([facility]) Pravastatin Sodium 20 MG Oral Tablet Pravastatin Sodium 20 M G 02/01/2021 12:00:00 AM EST 1.0 {tablet} active Pr avastatin Sodium 20 MG eCW1 ([facility]) 0.5 ML dulaglutide 3 MG/ML Auto-Injector [Trulicity] T rulicity 1.5 MG/0.5ML Trulicity 1.5 MG/0.5ML 02/01/2021 12:00:00 AM EST active Trulicity 1.5 MG/0.5ML eCW1 ([facility]) Pravastatin Sodium 20 MG Oral Tablet Pravastatin Sodium 20 M G 02/01/2021 12:00:00 AM EST 1.0 {tablet} active Pr avastatin Sodium 20 MG eCW1 ([facility]) Pen Hooven 32G X 5 MM Pen [place]oven 32G X 5 MM 02/01/2021 12:00:[address] suspended Pen Hooven 32G X 5 MM eC W1 ([facility]) Pravastatin Sodium 20 MG Oral Tablet Pravastatin Sodium 20 M G 02/01/2021 12:00:00 AM EST 1.0 {tablet} active Pr avastatin Sodium 20 MG eCW1 ([facility]) Pravastatin Sodium 20 MG Oral Tablet Pravastatin Sodium 20 M G 02/01/2021 12:00:00 AM EST 1.0 {tablet} active Pr avastatin Sodium 20 MG eCW1 ([facility]) 0.5 ML dulaglutide 3 MG/ML Auto-Injector [Trulicity] T rulicity 1.5 MG/0.5ML Trulicity 1.5 MG/0.5ML 02/01/2021 12:00:00 AM EST active Trulicity 1.5 MG/0.5ML eCW1 ([facility]) Pen Hooven 32G X 5 MM Pen [place]oven 32G X 5 MM 02/01/2021 12:00:[address] active Pen Hooven 32G X 5 MM eC W1 ([facility]) Pen Hooven 32G X 5 MM Pen [place]oven 32G X 5 MM 02/01/2021 12:00:[address] suspended Pen Hooven 32G X 5 MM eC W1 ([facility]) Pen Hooven 32G X 5 MM Pen [place] 32G X 5 MM 02/01/2021 12:00:[address] active Pen Hooven 32G X 5 MM eC W1 ([facility]) 0.5 ML dulaglutide 3 MG/ML Auto-Injector [Trulicity] T rulicity 1.5 MG/0.5ML Trulicity 1.5 MG/0.5ML 02/01/2021 12:00:00 AM EST active Trulicity 1.5 MG/0.5ML eCW1 ([facility]) Pen Hooven 32G X 5 MM Pen [place]oven 32G X 5 MM 02/01/2021 12:00:[address] active Pen Hooven 32G X 5 MM eC W1 ([facility]) Pen Hooven 32G X 5 MM Pen [place]oven 32G X 5 MM 02/01/2021 12:00:[address] suspended Pen Hooven 32G X 5 MM eC W1 ([facility]) 0.5 ML dulaglutide 3 MG/ML Auto-Injector [Trulicity] T rulicity 1.5 MG/0.5ML Trulicity 1.5 MG/0.5ML 02/01/2021 12:00:00 AM EST active Trulicity 1.5 MG/0.5ML eCW1 ([facility]) 0.5 ML dulaglutide 3 MG/ML Auto-Injector [Trulicity] T rulicity 1.5 MG/0.5ML Trulicity 1.5 MG/0.5ML 02/01/2021 12:00:00 AM EST active Trulicity 1.5 MG/0.5ML eCW1 ([facility]) Pravastatin Sodium 20 MG Oral Tablet Pravastatin Sodium 20 M G 02/01/2021 12:00:00 AM EST 1.0 {tablet} active Pr avastatin Sodium 20 MG eCW1 ([facility]) Pen Hooven 32G X 5 MM Pen [place]oven 32G X 5 MM 02/01/2021 12:00:[address] active Pen Hooven 32G X 5 MM eC W1 ([facility]) 0.5 ML dulaglutide 3 MG/ML Auto-Injector [Trulicity] T rulicity 1.5 MG/0.5ML Trulicity 1.5 MG/0.5ML 02/01/2021 12:00:00 AM EST active Trulicity 1.5 MG/0.5ML eCW1 ([facility]) 0.5 ML dulaglutide 3 MG/ML Auto-Injector [Trulicity] T rulicity 1.5 MG/0.5ML Trulicity 1.5 MG/0.5ML 02/01/2021 12:00:00 AM EST active Trulicity 1.5 MG/0.5ML eCW1 ([facility]) 0.5 ML dulaglutide 3 MG/ML Auto-Injector [Trulicity] T rulicity 1.5 MG/0.5ML Trulicity 1.5 MG/0.5ML 02/01/2021 12:00:00 AM EST active Trulicity 1.5 MG/0.5ML eCW1 ([facility]) Pen Hooven 32G X 5 MM Pen [place]oven 32G X 5 MM 02/01/2021 12:00:[address] suspended Pen Hooven 32G X 5 MM eC W1 ([facility]) Pen Hooven 32G X 5 MM Pen [place]oven 32G X 5 MM 02/01/2021 12:00:[address] active eCW1 ([facility]) Pravastatin Sodium 20 MG Oral Tablet Pravastatin Sodium 20 M G 02/01/2021 12:00:00 AM EST 1.0 {tablet} active Pr avastatin Sodium 20 MG eCW1 ([facility]) Pen Hooven 32G X 5 MM Pen [place]oven 32G X 5 MM 02/01/2021 12:00:[address] active Pen Hooven 32G X 5 MM eC W1 ([facility]) 0.5 ML dulaglutide 3 MG/ML Auto-Injector [Trulicity] T rulicity 1.5 MG/0.5ML Trulicity 1.5 MG/0.5ML 02/01/2021 12:00:00 AM EST active Trulicity 1.5 MG/0.5ML eCW1 ([facility]) 0.5 ML dulaglutide 3 MG/ML Auto-Injector [Trulicity] T rulicity 1.5 MG/0.5ML Trulicity 1.5 MG/0.5ML 02/01/2021 12:00:00 AM EST active Trulicity 1.5 MG/0.5ML eCW1 ([facility]) Pen Hooven 32G X 5 MM Pen [place]oven 32G X 5 MM 02/01/2021 12:00:[address] active Pen Hooven 32G X 5 MM eC W1 ([facility]) Pravastatin Sodium 20 MG Oral Tablet Pravastatin Sodium 20 M G 02/01/2021 12:00:00 AM EST 1.0 {tablet} active Pr avastatin Sodium 20 MG eCW1 ([facility]) 0.5 ML dulaglutide 3 MG/ML Auto-Injector [Trulicity] T rulicity 1.5 MG/0.5ML Trulicity 1.5 MG/0.5ML 02/01/2021 12:00:00 AM EST active eCW1 ([facility]) Pravastatin Sodium 20 MG Oral Tablet Pravastatin Sodium 20 M G 02/01/2021 12:00:00 AM EST 1.0 {tablet} active Pr avastatin Sodium 20 MG eCW1 ([facility]) Pravastatin Sodium 20 MG Oral Tablet Pravastatin Sodium 20 M G 02/01/2021 12:00:00 AM EST 1.0 {tablet} active Pr avastatin Sodium 20 MG eCW1 ([facility]) Pen Hooven 32G X 5 MM Pen [place]oven 32G X 5 MM 02/01/2021 12:00:[address] active Pen Hooven 32G X 5 MM eC W1 ([facility]) Pravastatin Sodium 20 MG Oral Tablet Pravastatin Sodium 20 M G 02/01/2021 12:00:00 AM EST 1.0 {tablet} active Pr avastatin Sodium 20 MG eCW1 ([facility]) Pen Hooven 32G X 5 MM Pen [place]oven 32G X 5 MM 02/01/2021 12:00:[address] active Pen Hooven 32G X 5 MM eC W1 ([facility]) 0.5 ML dulaglutide 3 MG/ML Auto-Injector [Trulicity] T rulicity 1.5 MG/0.5ML Trulicity 1.5 MG/0.5ML 02/01/2021 12:00:00 AM EST active Trulicity 1.5 MG/0.5ML eCW1 ([facility]) Pen Hooven 32G X 5 MM Pen [place]oven 32G X 5 MM 02/01/2021 12:00:[address] active Pen Hooven 32G X 5 MM eC W1 ([facility]) Pen Hooven 32G X 5 MM Pen [place]oven 32G X 5 MM 02/01/2021 12:00:[address] suspended Pen Hooven 32G X 5 MM eC W1 ([facility]) 0.5 ML dulaglutide 3 MG/ML Auto-Injector [Trulicity] T rulicity 1.5 MG/0.5ML Trulicity 1.5 MG/0.5ML 02/01/2021 12:00:00 AM EST active Trulicity 1.5 MG/0.5ML eCW1 ([facility]) Pravastatin Sodium 20 MG Oral Tablet Pravastatin Sodium 20 M G 02/01/2021 12:00:00 AM EST 1.0 {tablet} active Pr avastatin Sodium 20 MG eCW1 ([facility]) Pravastatin Sodium 20 MG Oral Tablet Pravastatin Sodium 20 M G 02/01/2021 12:00:00 AM EST 1.0 {tablet} active Pr avastatin Sodium 20 MG eCW1 ([facility]) Pravastatin Sodium 20 MG Oral Tablet Pravastatin Sodium 20 M G 02/01/2021 12:00:00 AM EST 1.0 {tablet} active Pr avastatin Sodium 20 MG eCW1 ([facility]) 0.5 ML dulaglutide 3 MG/ML Auto-Injector [Trulicity] T rulicity 1.5 MG/0.5ML Trulicity 1.5 MG/0.5ML 02/01/2021 12:00:00 AM EST active Trulicity 1.5 MG/0.5ML eCW1 ([facility]) Pravastatin Sodium 20 MG Oral Tablet Pravastatin Sodium 20 M G 02/01/2021 12:00:00 AM EST 1.0 {tablet} active Pr avastatin Sodium 20 MG eCW1 ([facility]) 0.5 ML dulaglutide 3 MG/ML Auto-Injector [Trulicity] T rulicity 1.5 MG/0.5ML Trulicity 1.5 MG/0.5ML 02/01/2021 12:00:00 AM EST active Trulicity 1.5 MG/0.5ML eCW1 ([facility]) 0.5 ML dulaglutide 3 MG/ML Auto-Injector [Trulicity] T rulicity 1.5 MG/0.5ML Trulicity 1.5 MG/0.5ML 02/01/2021 12:00:00 AM EST active Trulicity 1.5 MG/0.5ML eCW1 ([facility]) 0.5 ML dulaglutide 3 MG/ML Auto-Injector [Trulicity] T rulicity 1.5 MG/0.5ML Trulicity 1.5 MG/0.5ML 02/01/2021 12:00:00 AM EST active Trulicity 1.5 MG/0.5ML eCW1 ([facility]) Pravastatin Sodium 20 MG Oral Tablet Pravastatin Sodium 20 M G 02/01/2021 12:00:00 AM EST 1.0 {tablet} active Pr avastatin Sodium 20 MG eCW1 ([facility]) Pen Hooven 32G X 5 MM Pen [place]oven 32G X 5 MM 02/01/2021 12:00:[address] active Pen Hooven 32G X 5 MM eC W1 ([facility]) Pravastatin Sodium 20 MG Oral Tablet Pravastatin Sodium 20 M G 02/01/2021 12:00:00 AM EST 1.0 {tablet} active Pr avastatin Sodium 20 MG eCW1 ([facility]) Pravastatin Sodium 20 MG Oral Tablet Pravastatin Sodium 20 M G 02/01/2021 12:00:00 AM EST 1.0 {tablet} active eCW1 ([facility]) Pen Hooven 32G X 5 MM Pen [place]oven 32G X 5 MM 02/01/2021 12:00:[address] active Pen [place] 32G X 5 MM eC W1 ([facility]) Pen Hooven 32G X 5 MM Pen [place] 32G X 5 MM 02/01/2021 12:00:[address] suspended Pen Hooven 32G X 5 MM eC W1 ([facility]) 0.5 ML dulaglutide 3 MG/ML Auto-Injector [Trulicity] T rulicity 1.5 MG/0.5ML Trulicity 1.5 MG/0.5ML 02/01/2021 12:00:00 AM EST active Trulicity 1.5 MG/0.5ML eCW1 ([facility]) Pravastatin Sodium 20 MG Oral Tablet Pravastatin Sodium 20 M G 02/01/2021 12:00:00 AM EST 1.0 {tablet} active Pr avastatin Sodium 20 MG eCW1 ([facility]) Pen Hooven 32G X 5 MM Pen [place] 32G X 5 MM 02/01/2021 12:00:[address] active Pen [place] 32G X 5 MM eC W1 ([facility]) 0.5 ML dulaglutide 3 MG/ML Auto-Injector [Trulicity] T rulicity 1.5 MG/0.5ML Trulicity 1.5 MG/0.5ML 02/01/2021 12:00:00 AM EST active Trulicity 1.5 MG/0.5ML eCW1 ([facility]) Pravastatin Sodium 20 MG Oral Tablet Pravastatin Sodium 20 M G 02/01/2021 12:00:00 AM EST 1.0 {tablet} active Pr avastatin Sodium 20 MG eCW1 ([facility]) Pravastatin Sodium 20 MG Oral Tablet Pravastatin Sodium 20 M G 02/01/2021 12:00:00 AM EST 1.0 {tablet} active Pr avastatin Sodium 20 MG eCW1 ([facility]) Pen Hooven 32G X 5 MM Pen [place] 32G X 5 MM 02/01/2021 12:00:[address] suspended Pen [place] 32G X 5 MM eC W1 ([facility]) Pravastatin Sodium 20 MG Oral Tablet Pravastatin Sodium 20 M G 02/01/2021 12:00:00 AM EST 1.0 {tablet} active Pr avastatin Sodium 20 MG eCW1 ([facility]) 0.5 ML dulaglutide 3 MG/ML Auto-Injector [Trulicity] T rulicity 1.5 MG/0.5ML Trulicity 1.5 MG/0.5ML 02/01/2021 12:00:00 AM EST active Trulicity 1.5 MG/0.5ML eCW1 ([facility]) 0.5 ML dulaglutide 3 MG/ML Auto-Injector [Trulicity] T rulicity 1.5 MG/0.5ML Trulicity 1.5 MG/0.5ML 02/01/2021 12:00:00 AM EST active Trulicity 1.5 MG/0.5ML eCW1 ([facility]) Pen [place]oven 32G X 5 MM Pen [place] 32G X 5 MM 02/01/2021 12:00:[address] active Pen [place] 32G X 5 MM eC W1 ([facility]) 0.5 ML dulaglutide 3 MG/ML Auto-Injector [Trulicity] T rulicity 1.5 MG/0.5ML Trulicity 1.5 MG/0.5ML 02/01/2021 12:00:00 AM EST active Trulicity 1.5 MG/0.5ML eCW1 ([facility]) Pen Hooven 32G X 5 MM Pen [place] 32G X 5 MM 02/01/2021 12:00:[address] active Pen [place] 32G X 5 MM eC W1 ([facility]) Pravastatin Sodium 20 MG Oral Tablet Pravastatin Sodium 20 M G 02/01/2021 12:00:00 AM EST 1.0 {tablet} active Pr avastatin Sodium 20 MG eCW1 ([facility]) 0.5 ML dulaglutide 3 MG/ML Auto-Injector [Trulicity] T rulicity 1.5 MG/0.5ML Trulicity 1.5 MG/0.5ML 02/01/2021 12:00:00 AM EST active Trulicity 1.5 MG/0.5ML eCW1 ([facility]) Cephalexin 500 MG Oral Capsule Cephalexin 500 MG 10/25/2020 12:00:0 0 AM EST 1.0 {capsule} active Cephalexin 500 MG eCW1 ([facility]) Cephalexin 500 MG Oral Capsule Cephalexin 500 MG 10/25/2020 12:00:0 0 AM EST 1.0 {capsule} suspended Cephalexin 500 M G eCW1 ([facility]) Cephalexin 500 MG Oral Capsule Cephalexin 500 MG 10/25/2020 12:00:0 0 AM EST 1.0 {capsule} active Cephalexin 500 MG eCW1 ([facility]) Cephalexin 500 MG Oral Capsule Cephalexin 500 MG 10/25/2020 12:00:0 0 AM EST 1.0 {capsule} active Cephalexin 500 MG eCW1 ([facility]) Cephalexin 500 MG Oral Capsule Cephalexin 500 MG 10/25/2020 12:00:0 0 AM EST 1.0 {capsule} active Cephalexin 500 MG eCW1 ([facility]) Cephalexin 500 MG Oral Capsule Cephalexin 500 MG 10/25/2020 12:00:0 0 AM EST 1.0 {capsule} active Cephalexin 500 MG eCW1 ([facility]) Cephalexin 500 MG Oral Capsule Cephalexin 500 MG 10/25/2020 12:00:0 0 AM EST 1.0 {capsule} active Cephalexin 500 MG eCW1 ([facility]) Cephalexin 500 MG Oral Capsule Cephalexin 500 MG 10/25/2020 12:00:0 0 AM EST 1.0 {capsule} suspended Cephalexin 500 M G eCW1 ([facility]) Cephalexin 500 MG Oral Capsule Cephalexin 500 MG 10/25/2020 12:00:0 0 AM EST 1.0 {capsule} active Cephalexin 500 MG eCW1 ([facility]) Cephalexin 500 MG Oral Capsule Cephalexin 500 MG 10/25/2020 12:00:0 0 AM EST 1.0 {capsule} active Cephalexin 500 MG eCW1 ([facility]) Cephalexin 500 MG Oral Capsule Cephalexin 500 MG 10/25/2020 12:00:0 0 AM EST 1.0 {capsule} suspended Cephalexin 500 M G eCW1 ([facility]) Cephalexin 500 MG Oral Capsule Cephalexin 500 MG 10/25/2020 12:00:0 0 AM EST 1.0 {capsule} active Cephalexin 500 MG eCW1 ([facility]) Cephalexin 500 MG Oral Capsule Cephalexin 500 MG 10/25/2020 12:00:0 0 AM EST 1.0 {capsule} active Cephalexin 500 MG eCW1 ([facility]) Cephalexin 500 MG Oral Capsule Cephalexin 500 MG 10/25/2020 12:00:0 0 AM EST 1.0 {capsule} active Cephalexin 500 MG eCW1 ([facility]) Cephalexin 500 MG Oral Capsule Cephalexin 500 MG 10/25/2020 12:00:0 0 AM EST 1.0 {capsule} active Cephalexin 500 MG eCW1 ([facility]) Cephalexin 500 MG Oral Capsule Cephalexin 500 MG 10/25/2020 12:00:0 0 AM EST 1.0 {capsule} active Cephalexin 500 MG eCW1 ([facility]) Cephalexin 500 MG Oral Capsule Cephalexin 500 MG 10/25/2020 12:00:0 0 AM EST 1.0 {capsule} suspended Cephalexin 500 M G eCW1 ([facility]) Cephalexin 500 MG Oral Capsule Cephalexin 500 MG 10/25/2020 12:00:0 0 AM EST 1.0 {capsule} suspended Cephalexin 500 M G eCW1 ([facility]) Cephalexin 500 MG Oral Capsule Cephalexin 500 MG 10/25/2020 12:00:0 0 AM EST 1.0 {capsule} suspended Cephalexin 500 M G eCW1 ([facility]) Cephalexin 500 MG Oral Capsule Cephalexin 500 MG 10/25/2020 12:00:0 0 AM EST 1.0 {capsule} suspended Cephalexin 500 M G eCW1 ([facility]) Cephalexin 500 MG Oral Capsule Cephalexin 500 MG 10/25/2020 12:00:0 0 AM EST 1.0 {capsule} suspended Cephalexin 500 M G eCW1 ([facility]) Cephalexin 500 MG Oral Capsule Cephalexin 500 MG 10/25/2020 12:00:0 0 AM EST 1.0 {capsule} suspended Cephalexin 500 M G eCW1 ([facility]) Cephalexin 500 MG Oral Capsule Cephalexin 500 MG 10/25/2020 12:00:0 0 AM EST 1.0 {capsule} active Cephalexin 500 MG eCW1 ([facility]) Cephalexin 500 MG Oral Capsule Cephalexin 500 MG 10/25/2020 12:00:0 0 AM EST 1.0 {capsule} active Cephalexin 500 MG eCW1 ([facility]) Cephalexin 500 MG Oral Capsule Cephalexin 500 MG 10/25/2020 12:00:0 0 AM EST 1.0 {capsule} suspended Cephalexin 500 M G eCW1 ([facility]) Cephalexin 500 MG Oral Capsule Cephalexin 500 MG 10/25/2020 12:00:0 0 AM EST 1.0 {capsule} active eCW1 ([facility]) Cephalexin 500 MG Oral Capsule Cephalexin 500 MG 10/25/2020 12:00:0 0 AM EST 1.0 {capsule} active Cephalexin 500 MG eCW1 ([facility]) Cephalexin 500 MG Oral Capsule Cephalexin 500 MG 10/25/2020 12:00:0 0 AM EST 1.0 {capsule} active Cephalexin 500 MG eCW1 ([facility]) Cephalexin 500 MG Oral Capsule Cephalexin 500 MG 10/25/2020 12:00:0 0 AM EST 1.0 {capsule} suspended Cephalexin 500 M G eCW1 ([facility]) Cephalexin 500 MG Oral Capsule Cephalexin 500 MG 10/25/2020 12:00:0 0 AM EST 1.0 {capsule} active Cephalexin 500 MG eCW1 ([facility]) Insurance Providers Payer name Policy type / Coverage type Policy ID Covered green party ID Covered green party's relationship to self Policy Self Plan Information MEDICARE A [id number] Self [id number] [place] [id number] Self [id number] [place] [id number] [place] [id number] Self [id number] MEDICAID [id number] SP [id number] HUMANA PPO [id number] SP [id number] HUMANA PPO [id number] SP [id number] MEDICARE [id number] SP [id number] A MEDICAID M [id number] S [id number] MEDICARE C [id number] S [id number] A Medicaid [place] Medig[place] Part B [id number] Self [id number] [place] Primary [id number] Self [id number] MEDICAID M UNAVAILABLE [id number] S [place] Med[place] Part B [id number] Self [id number] Medicare Dme Supplies Medigap Part B [id number] Self [id number] Medicare Dme Supplies Medigap Part B [id number] Self [id number] Medicare Dme Supplies Medigap Part B [id number] Self Medicare [facility] Medicare Primary [id number] Self [place] Primary [id number] Self /BS Of [facility] [employer] [id number] Self HMO BLUE [id number] SP [id number] HUMANA GOLD [id number] SP [id number] MEDICARE [id number] SP [id number] HUMANA GOLD [id number] SP [id number] HUMANA GOLD [id number] SP [id number] HUMANA GOLD O [id number] Problems, Conditions, and Diagnoses Code Display Name Description Problem Type Effective Dates Data Source(s) I87.2 [id number] Venous stasis dermatitis of left lower ex tremity Problem 08/29/2021 12:00:00 AM EDT eCW1 ([facility]) 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 Proble m 02/01/2021 12:00:00 AM EST eCW1 ([facility]) E11.622 [id number] Type 2 diabetes mellitus with other skin ulcer Problem 02/01/2021 12:00:00 AM EST eCW1 ([facility]) Surgeries/Procedures No Information Results No Information Social History Code Duration Value Status Description Data Source(s ) Smoking 10/04/2021 12:00:00 AM EST Former Smoker completed Former Smoker eCW1 ([facility]) Smoking 10/04/2021 12:00:00 AM EST Former Smoker completed Former Smoker eCW1 ([facility]) Smoking 08/29/2021 12:00:00 AM EDT Former Smoker completed Former Smoker eCW1 ([facility]) Smoking 08/29/2021 12:00:00 AM EDT Former Smoker completed Former Smoker eCW1 ([facility]) Smoking 08/29/2021 12:00:00 AM EDT Former Smoker completed Former Smoker eCW1 ([facility]) Smoking 08/29/2021 12:00:00 AM EDT Former Smoker completed Former Smoker eCW1 ([facility]) Smoking 08/29/2021 12:00:00 AM EDT Former Smoker completed Former Smoker eCW1 ([facility]) Smoking 08/29/2021 12:00:00 AM EDT Former Smoker completed Former Smoker eCW1 ([facility]) Smoking 11/30/2020 12:00:00 AM EST Former Smoker completed Former Smoker eCW1 ([facility]) Smoking 11/30/2020 12:00:00 AM EST Former Smoker completed Former Smoker eCW1 ([facility]) Smoking 11/30/2020 12:00:00 AM EST Former Smoker completed Former Smoker eCW1 ([facility]) Smoking 11/30/2020 12:00:00 AM EST Former Smoker completed Former Smoker eCW1 ([facility]) Smoking 11/30/2020 12:00:00 AM EST Former Smoker completed Former Smoker eCW1 ([facility]) Smoking 11/30/2020 12:00:00 AM EST Former Smoker completed Former Smoker eCW1 ([facility]) Smoking 11/30/2020 12:00:00 AM EST Former Smoker completed Former Smoker eCW1 ([facility]) Smoking 11/30/2020 12:00:00 AM EST Former Smoker completed Former Smoker eCW1 ([facility]) Smoking 11/30/2020 12:00:00 AM EST Former Smoker completed Former Smoker eCW1 ([facility]) Smoking 11/30/2020 12:00:00 AM EST Former Smoker completed Former Smoker eCW1 ([facility]) Smoking 11/30/2020 12:00:00 AM EST Former Smoker completed Former Smoker eCW1 ([facility]) Smoking 11/30/2020 12:00:00 AM EST Former Smoker completed Former Smoker eCW1 ([facility]) Smoking 11/30/2020 12:00:00 AM EST Former Smoker completed Former Smoker eCW1 ([facility]) Smoking 11/30/2020 12:00:00 AM EST Former Smoker completed Former Smoker eCW1 ([facility]) Smoking 11/30/2020 12:00:00 AM EST Former Smoker completed Former Smoker eCW1 ([facility]) Smoking 11/30/2020 12:00:00 AM EST Former Smoker completed Former Smoker eCW1 ([facility]) Smoking 11/30/2020 12:00:00 AM EST Former Smoker completed Former Smoker eCW1 ([facility]) Smoking 11/30/2020 12:00:00 AM EST Former Smoker completed Former Smoker eCW1 ([facility]) Smoking 11/30/2020 12:00:00 AM EST Former Smoker completed Former Smoker eCW1 ([facility]) Vital Signs ID Date Data Source UNK Name Value Range Interpretation Code Description Data Source(s) Body weight 338 [lb_av] 338 [lb_av] eCW1 ([facility]) Body weight 153.32 kg 153.32 kg W1 ([facility]) Body height 66 [in_i] 66 [in_i] eCW1 ([facility]) Body mass index (BMI) [Ratio] 54.55 kg/m2 54.55 kg/m2 W1 ([facility]) Heart rate 96 /min 96 /min eCW1 ([facility]) Respiratory rate 20 /min 20 /min eCW1 ([facility]) Body temperature 98.0 [degF] 98.0 [degF] eCW1 ( [facility]) Systolic blood pressure 180 mm[Hg] 180 mm[Hg] e CW1 ([facility]) Diastolic blood pressure mm[Hg] eCW1 ([facility]) Body weight 317 [lb_av] 317 [lb_av] eCW1 ([facility]) Body height 66 [in_i] 66 [in_i] eCW1 ([facility]) Body mass index (BMI) [Ratio] 51.16 kg/m2 51.16 kg/m2 eCW1 ([facility]) Heart rate 93 /min 93 /min eCW1 ([facility]) Respiratory rate 18 /min 18 /min eCW1 ([facility]) Body temperature 98.4 [degF] 98.4 [degF] eCW1 ( [facility]) Systolic blood pressure 140 mm[Hg] 140 mm[Hg] e CW1 ([facility]) Diastolic blood pressure 76 mm[Hg] 76 mm[Hg] eCW1 ([facility]) Patient Treatment Plan of Care Planned Activity Planned Date Details Description Data Source (s) Doxycycline Monohydrate 100 MG Oral Capsule 10/04/2021 12:00:00 AM EST eCW1 ([facility]) Fluconazole 150 MG Oral Tablet 10/04/2021 12:00:00 AM EST eCW1 ([facility]) Doxycycline Monohydrate 100 MG Oral Capsule 10/04/2021 12:00:00 AM EST eCW1 ([facility]) Fluconazole 150 MG Oral Tablet 10/04/2021 12:00:00 AM EST eCW1 ([facility]) Cefadroxil 500 MG Oral Capsule 07/26/2021 12:00:00 AM EDT eCW1 ([facility]) Cefadroxil 500 MG Oral Capsule 07/26/2021 12:00:00 AM EDT eCW1 ([facility]) Cefadroxil 500 MG Oral Capsule 07/26/2021 12:00:00 AM EDT eCW1 ([facility]) Amoxicillin 875 MG / Clavulanate 125 MG Oral Tablet 04/15/20 12:00:00 AM EDT eCW1 ([facility]) Amoxicillin 875 MG / Clavulanate 125 MG Oral Tablet 05/24/20 21 12:00:00 AM EDT eCW1 ([facility]) Amoxicillin 875 MG / Clavulanate 125 MG Oral Tablet 04/15/20 21 12:00:00 AM EDT eCW1 ([facility]) Amoxicillin 875 MG / Clavulanate 125 MG Oral Tablet 04/15/20 21 12:00:00 AM EDT eCW1 ([facility]) Amoxicillin 875 MG / Clavulanate 125 MG Oral Tablet 04/15/20 21 12:00:00 AM EDT eCW1 ([facility]) Amoxicillin 875 MG / Clavulanate 125 MG Oral Tablet 04/15/20 21 12:00:00 AM EDT eCW1 ([facility]) Amoxicillin 875 MG / Clavulanate 125 MG Oral Tablet 04/15/20 21 12:00:00 AM EDT eCW1 ([facility]) Amoxicillin 875 MG / Clavulanate 125 MG Oral Tablet 04/15/20 21 12:00:00 AM EDT eCW1 ([facility]) 0.5 ML dulaglutide 3 MG/ML Auto-Injector [Trulicity] 021 12:00:00 AM EST eCW1 ([facility]) Pravastatin Sodium 20 MG Oral Tablet 02/01/2021 12:00:00 AM EST eCW1 ([facility]) 0.5 ML dulaglutide 3 MG/ML Auto-Injector [Trulicity] 021 12:00:00 AM EST eCW1 ([facility]) Pravastatin Sodium 20 MG Oral Tablet 02/01/2021 12:00:00 AM EST eCW1 ([facility]) Pen Hooven 32G X 5 MM 02/01/2021 12:00:00 AM EST eCW1 ([facility]) Pravastatin Sodium 20 MG Oral Tablet 02/01/2021 12:00:00 AM EST eCW1 ([facility]) 0.5 ML dulaglutide 3 MG/ML Auto-Injector [Trulicity] 03/12/2 021 12:00:00 AM EST eCW1 ([facility]) Pen Hooven 32G X 5 MM 02/01/2021 12:00:00 AM EST eCW1 ([facility]) Pravastatin Sodium 20 MG Oral Tablet 02/01/2021 12:00:00 AM EST eCW1 ([facility]) 0.5 ML dulaglutide 3 MG/ML Auto-Injector [Trulicity] 021 12:00:00 AM EST eCW1 ([facility]) Pen Hooven 32G X 5 MM 02/01/2021 12:00:00 AM EST eCW1 ([facility]) Pravastatin Sodium 20 MG Oral Tablet 02/01/2021 12:00:00 AM EST eCW1 ([facility]) 0.5 ML dulaglutide 3 MG/ML Auto-Injector [Trulicity] 12:00:00 AM EST eCW1 ([facility]) Pen Hooven 32G X 5 MM 02/01/2021 12:00:00 AM EST eCW1 ([facility]) Pravastatin Sodium 20 MG Oral Tablet 02/01/2021 12:00:00 AM EST eCW1 ([facility]) 0.5 ML dulaglutide 3 MG/ML Auto-Injector [Trulicity] 12:00:00 AM EST eCW1 ([facility]) Pen Hooven 32G X 5 MM 02/01/2021 12:00:00 AM EST eCW1 ([facility]) Pravastatin Sodium 20 MG Oral Tablet 02/01/2021 12:00:00 AM EST eCW1 ([facility]) 0.5 ML dulaglutide 3 MG/ML Auto-Injector [Trulicity] 12:00:00 AM EST eCW1 ([facility]) Pen Hooven 32G X 5 MM 02/01/2021 12:00:00 AM EST eCW1 ([facility]) Pravastatin Sodium 20 MG Oral Tablet 02/01/2021 12:00:00 AM EST eCW1 ([facility]) 0.5 ML dulaglutide 3 MG/ML Auto-Injector [Trulicity] 12:00:00 AM EST eCW1 ([facility]) Pen Hooven 32G X 5 MM 02/01/2021 12:00:00 AM EST eCW1 ([facility]) 0.5 ML dulaglutide 3 MG/ML Auto-Injector [Trulicity] 12:00:00 AM EST eCW1 ([facility]) Pravastatin Sodium 20 MG Oral Tablet 02/01/2021 12:00:00 AM EST eCW1 ([facility]) Pen Hooven 32G X 5 MM 02/01/2021 12:00:00 AM EST eCW1 ([facility]) 0.5 ML dulaglutide 3 MG/ML Auto-Injector [Trulicity] 12:00:00 AM EST eCW1 ([facility]) Pravastatin Sodium 20 MG Oral Tablet 02/01/2021 12:00:00 AM EST eCW1 ([facility]) Pen Hooven 32G X 5 MM 02/01/2021 12:00:00 AM EST eCW1 ([facility]) Pravastatin Sodium 20 MG Oral Tablet 02/01/2021 12:00:00 AM EST eCW1 ([facility]) 0.5 ML dulaglutide 3 MG/ML Auto-Injector [Trulicity] 12:00:00 AM EST eCW1 ([facility]) Pen Hooven 32G X 5 MM 02/01/2021 12:00:00 AM EST eCW1 ([facility]) Pravastatin Sodium 20 MG Oral Tablet 02/01/2021 12:00:00 AM EST eCW1 ([facility]) 0.5 ML dulaglutide 3 MG/ML Auto-Injector [Trulicity] 12:00:00 AM EST eCW1 ([facility]) Pen Hooven 32G X 5 MM 02/01/2021 12:00:00 AM EST eCW1 ([facility]) 0.5 ML dulaglutide 3 MG/ML Auto-Injector [Trulicity] 12:00:00 AM EST eCW1 ([facility]) Pravastatin Sodium 20 MG Oral Tablet 02/01/2021 12:00:00 AM EST eCW1 ([facility]) Pen Hooven 32G X 5 MM 02/01/2021 12:00:00 AM EST eCW1 ([facility]) Pravastatin Sodium 20 MG Oral Tablet 02/01/2021 12:00:00 AM EST eCW1 ([facility]) 0.5 ML dulaglutide 3 MG/ML Auto-Injector [Trulicity] 12:00:00 AM EST eCW1 ([facility]) Pen Hooven 32G X 5 MM 02/01/2021 12:00:00 AM EST eCW1 ([facility]) Pravastatin Sodium 20 MG Oral Tablet 02/01/2021 12:00:00 AM EST eCW1 ([facility]) 0.5 ML dulaglutide 3 MG/ML Auto-Injector [Trulicity] 12:00:00 AM EST eCW1 ([facility]) Pen Hooven 32G X 5 MM 02/01/2021 12:00:00 AM EST eCW1 ([facility]) Pravastatin Sodium 20 MG Oral Tablet 02/01/2021 12:00:00 AM EST eCW1 ([facility]) 0.5 ML dulaglutide 3 MG/ML Auto-Injector [Trulicity] 021 12:00:00 AM EST eCW1 ([facility]) Pravastatin Sodium 20 MG Oral Tablet 02/01/2021 12:00:00 AM EST eCW1 ([facility]) 0.5 ML dulaglutide 3 MG/ML Auto-Injector [Trulicity] 021 12:00:00 AM EST eCW1 ([facility]) Pen Hooven 32G X 5 MM 02/01/2021 12:00:00 AM EST eCW1 ([facility]) 0.5 ML dulaglutide 3 MG/ML Auto-Injector [Trulicity] 12:00:00 AM EST eCW1 ([facility]) Pravastatin Sodium 20 MG Oral Tablet 02/01/2021 12:00:00 AM EST eCW1 ([facility]) Pen Hooven 32G X 5 MM 02/01/2021 12:00:00 AM EST eCW1 ([facility]) Cephalexin 500 MG Oral Capsule 10/25/2020 12:00:00 AM EST eCW1 ([facility]) Cephalexin 500 MG Oral Capsule 10/25/2020 12:00:00 AM EST eCW1 ([facility]) Cephalexin 500 MG Oral Capsule 10/25/2020 12:00:00 AM EST eCW1 ([facility]) Cephalexin 500 MG Oral Capsule 10/25/2020 12:00:00 AM EST eCW1 ([facility]) Cephalexin 500 MG Oral Capsule 10/25/2020 12:00:00 AM EST eCW1 ([facility]) Cephalexin 500 MG Oral Capsule 10/25/2020 12:00:00 AM EST eCW1 ([facility]) Cephalexin 500 MG Oral Capsule 10/25/2020 12:00:00 AM EST eCW1 ([facility]) Cephalexin 500 MG Oral Capsule 10/25/2020 12:00:00 AM EST eCW1 ([facility]) Cephalexin 500 MG Oral Capsule 10/25/2020 12:00:00 AM EST eCW1 ([facility]) Cephalexin 500 MG Oral Capsule 10/25/2020 12:00:00 AM EST eCW1 ([facility]) Cephalexin 500 MG Oral Capsule 10/25/2020 12:00:00 AM EST eCW1 ([facility]) Cephalexin 500 MG Oral Capsule 10/25/2020 12:00:00 AM EST eCW1 ([facility]) Cephalexin 500 MG Oral Capsule 10/25/2020 12:00:00 AM EST eCW1 ([facility]) Cephalexin 500 MG Oral Capsule 10/25/2020 12:00:00 AM EST eCW1 ([facility]) Cephalexin 500 MG Oral Capsule 10/25/2020 12:00:00 AM EST eCW1 ([facility]) Cephalexin 500 MG Oral Capsule 10/25/2020 12:00:00 AM EST eCW1 ([facility]) Cephalexin 500 MG Oral Capsule 10/25/2020 12:00:00 AM EST eCW1 ([facility]) Cephalexin 500 MG Oral Capsule 10/25/2020 12:00:00 AM EST eCW1 ([facility]) Cephalexin 500 MG Oral Capsule 10/25/2020 12:00:00 AM EST eCW1 ([facility])
[2021-10-21] MEDS ORDERED: GABA-282 PO (13:47)
[2021-10-21] MEDS ORDERED: MIRA0.5T PO (13:47)
[2021-10-21] MEDS ORDERED: PRAV20TA2 PO (13:47)
[2021-10-21] MEDS ORDERED: TRUL0.5I SC (13:47)
[2021-10-21] MEDS ORDERED: HOME MED LIST COMPLETE! XX SCH (13:50)
[2021-10-21] MEDS ORDERED: ACETAMINOPHEN TAB 650MG DOSE (2X325MG) PO PRN (14:00)
[2021-10-21] MEDS ORDERED: DEXTROSE 50% 50 ML SYRINGE IV PRN (14:55)
[2021-10-21] MEDS ORDERED: GLUCAGON INJ 1MG VIAL SC PRN (14:55)
[2021-10-21] MEDS ORDERED: GLUCOSE 4GM CHEW TABLET PO PRN (14:55)
--- OUTSIDE RECORDS SUMMARY | 2021-10-21 15:10 | CCD ---
Author Author [facility] Organization [facility] Address Unknown Phone Unavailable Support Name Relationship Address Phone DISABLED Next Of Kin Unknown Unavailable UE Next Of Kin Unknown Unavailable ALEXANDER PAULINO Next Of Kin [address] [place] [address] ALEXANDERCYNTHIA Next Of Kin [address] [facility] [address] [place] [address] MUNOZCYNTHIA ECON [address] [facility] [address] [place] [address] [phone] Re-disclosure Warning The records that you are [...] is protected by Article 27-F of the [facility] Public Health law. If you continue you may have access to information: Regarding HIV / AIDS; Provided by facilities licensed or operated by the [facility] Office of Mental Health; or Provided by the [facility] Office for People With Developmental Disabilities. If such information is present, then the following [facility] mandated warning applies: This information has [...] law may result in a fine or chcf sentence or both. A general authorization for the release of medical or other information is NOT sufficient authorization for further disc losure. Family History Family Member Name Family Member Gender Family Member Status Date o f Status Description Data Source(s) Unknown Female Problem MEDENT ([facility]) Unknown Female Problem MEDENT ([facility], ) Unknown Unknown Problem MEDENT (Solomon Solomon MD, ) Encounters Encounter Providers Location Date Indications Data Source(s ) [place] [address] [facility] [address] 10/04/2021 12:00:00 AM EST [facility]CW[facility] [place]) Unknown [address] [facility] [place] [address] 10/03/2021 12:00:00 AM EST eCW1 [facility] [place] Unknown [address] [facility] [place] [address] 09/27/2021 12:00:00 AM EDT eCW1 [facility] [place] [address] [facility] [place] [address] 09/25/2021 12:00:00 AM EDT eCW1 [facility] [place]) [place] [address] [facility] [place] [address] 09/23/2021 12:00:00 AM EDT eCW1 [facility] [place] [address] [facility] [place] [address] 09/09/2021 12:00:00 AM EDT eCW1 [facility] [place] [address] [facility] [place] [address] 09/03/2021 12:00:00 AM EDT eCW1 [facility] [place] [address] [facility] [place] [address] 09/02/2021 12:00:00 AM EDT eCW1 [facility] Unknown [address] [facility] [place] [address] 08/01/2021 12:00:00 AM EDT eCW1 ([facility]) [place] [address] [facility] [address] 07/26/2021 12:00:00 AM EDT eCW1 ([facility]) [place] [address] [facility] [address] 07/23/2021 12:00:00 AM EDT eCW1 ([facility]) [place] [address] [facility] [address] 07/11/2021 12:00:00 AM EDT eCW1 ([facility]) [place] [address] [facility] [address] 07/05/2021 12:00:00 AM EDT eCW1 ([facility]) [place] [address] [facility] [address] 06/07/2021 12:00:00 AM EDT eCW1 ([facility]) [place] [address] [facility] [address] 04/17/2021 12:00:00 AM EDT eCW1 ([facility]) Unknown [address] [facility] [address] 04/15/2021 12:00:00 AM EDT eCW1 ([facility]) Unknown [address] [facility] [address] 04/04/2021 12:00:00 AM EDT eCW1 ([facility]) Unknown [address] [facility] [address] 04/01/2021 12:00:00 AM EDT eCW1 ([facility]) Unknown [address] [facility] [address] 03/30/2021 12:00:00 AM EDT eCW1 ([facility]) Unknown [address] [facility] [address] 03/25/2021 12:00:00 AM EDT eCW1 ([facility]) Unknown [address] [facility] [address] 03/18/2021 12:00:00 AM EDT eCW1 [facility] [place] [address] [facility] [address] 03/18/2021 12:00:00 AM EDT eCW1 [facility] [place] [address] [facility] [place] [address] 02/08/2021 12:00:00 AM EDT eCW1 [facility] [place] [address] [facility] [address] 02/01/2021 12:00:00 AM EST eCW1 [facility] [place] [address] [facility] [address] 12/31/2020 12:00:00 AM EST eCW1 [facility] [place] [address] [facility] [address] 12/18/2020 12:00:00 AM EST eCW1 [facility] Outpatient [address] [facility] [address] 11/30/2020 12:00:00 AM EST eCW1 [facility] [place] [address] [facility] [address] 11/13/2020 12:00:00 AM EST eCW1 [facility] [place] [address] [facility] [address] 11/01/2020 12:00:00 AM EST eCW1 [facility] Unknown [address] [facility] [place] [address] 10/24/2020 12:00:00 AM EST eCW1 [facility] Unknown [address] [facility] [address] 09/18/2020 12:00:00 AM EDT eCW1 [facility] Medications Medication Brand Name Start Date Product Form Dose Route Admi nistrative Instructions Pharmacy Instructions Status Indications Reaction Description Data Source(s) Fluconazole 150 MG Oral Tablet Fluconazole 150 MG 10/04/2021 12:00: 00 AM EST 1.0 {tablet} active Fluconazole 150 MG eCW1 ([facility]) Doxycycline Monohydrate 100 MG Oral Capsule Doxycycline [place] hydrate 100 MG 10/04/2021 12:00:00 AM EST 1.0 {capsule} active Doxycycline Monohydrate 100 MG eCW1 ([facility]) Doxycycline Monohydrate 100 MG Oral Capsule Doxycycline [place] hydrate 100 MG 10/04/2021 12:00:00 AM EST 1.0 {capsule} active Doxycycline Monohydrate 100 MG eCW1 ([facility]) Fluconazole 150 MG Oral Tablet Fluconazole 150 MG 10/04/2021 12:00: 00 AM EST 1.0 {tablet} active Fluconazole 150 MG eCW1 ([facility]) Cefadroxil 500 MG Oral Capsule Cefadroxil 500 MG 07/26/2021 12:00:0 0 AM EDT 1.0 {capsule} suspended Cefadroxil 500 M G eCW1 ([facility]) Cefadroxil 500 MG Oral Capsule Cefadroxil 500 MG 07/26/2021 12:00:0 0 AM EDT 1.0 {capsule} suspended Cefadroxil 500 M G eCW1 ([facility]) Cefadroxil 500 MG Oral Capsule Cefadroxil 500 MG 07/26/2021 12:00:0 0 AM EDT 1.0 {capsule} active Cefadroxil 500 MG eCW1 ([facility]) Cefadroxil 500 MG Oral Capsule Cefadroxil 500 MG 07/26/2021 12:00:0 0 AM EDT 1.0 {capsule} active Cefadroxil 500 MG eCW1 ([facility]) Cefadroxil 500 MG Oral Capsule Cefadroxil 500 MG 07/26/2021 12:00:0 0 AM EDT 1.0 {capsule} suspended Cefadroxil 500 M G eCW1 ([facility]) Cefadroxil 500 MG Oral Capsule Cefadroxil 500 MG 07/26/2021 12:00:0 0 AM EDT 1.0 {capsule} active Cefadroxil 500 MG eCW1 ([facility]) Cefadroxil 500 MG Oral Capsule Cefadroxil 500 MG 07/26/2021 12:00:0 0 AM EDT 1.0 {capsule} suspended Cefadroxil 500 M G eCW1 ([facility]) Cefadroxil 500 MG Oral Capsule Cefadroxil 500 MG 07/26/2021 12:00:0 0 AM EDT 1.0 {capsule} suspended Cefadroxil 500 M G eCW1 ([facility]) Cefadroxil 500 MG Oral Capsule Cefadroxil 500 MG 07/26/2021 12:00:0 0 AM EDT 1.0 {capsule} suspended Cefadroxil 500 M G eCW1 ([facility]) Cefadroxil 500 MG Oral Capsule Cefadroxil 500 MG 07/26/2021 12:00:0 0 AM EDT 1.0 {capsule} suspended Cefadroxil 500 M G eCW1 ([facility]) Cefadroxil 500 MG Oral Capsule Cefadroxil 500 MG 07/26/2021 12:00:0 0 AM EDT 1.0 {capsule} suspended Cefadroxil 500 M G eCW1 ([facility]) Amoxicillin 875 MG / Clavulanate 125 MG Oral Tablet Amoxicillin-Pot Clavulanate 875-125 MG Amoxicillin-Pot Clavulanate 875-125 MG 04/15/2021 12:00:00 AM ED T 1.0 {tablet} suspended Amoxicillin-Pot C lavulanate 875-125 MG eCW1 ([facility]) Amoxicillin 875 MG / Clavulanate 125 MG Oral Tablet Amoxicillin-Pot Clavulanate 875-125 MG Amoxicillin-Pot Clavulanate 875-125 MG 04/15/2021 12:00:00 AM ED T 1.0 {tablet} active Amoxicillin-Pot Cla vulanate 875-125 MG eCW1 ([facility]) Amoxicillin 875 MG / Clavulanate 125 MG Oral Tablet Amoxicillin-Pot Clavulanate 875-125 MG Amoxicillin-Pot Clavulanate 875-125 MG 04/15/2021 12:00:00 AM ED T 1.0 {tablet} suspended Amoxicillin-Pot C lavulanate 875-125 MG eCW1 ([facility]) Amoxicillin 875 MG / Clavulanate 125 MG Oral Tablet Amoxicillin-Pot Clavulanate 875-125 MG Amoxicillin-Pot Clavulanate 875-125 MG 04/15/2021 12:00:00 AM ED T 1.0 {tablet} active Amoxicillin-Pot Cla vulanate 875-125 MG eCW1 ([facility]) Amoxicillin 875 MG / Clavulanate 125 MG Oral Tablet Amoxicillin-Pot Clavulanate 875-125 MG Amoxicillin-Pot Clavulanate 875-125 MG 04/15/2021 12:00:00 AM ED T 1.0 {tablet} active Amoxicillin-Pot Cla vulanate 875-125 MG eCW1 ([facility]) Amoxicillin 875 MG / Clavulanate 125 MG Oral Tablet Amoxicillin-Pot Clavulanate 875-125 MG Amoxicillin-Pot Clavulanate 875-125 MG 04/15/2021 12:00:00 AM ED T 1.0 {tablet} suspended Amoxicillin-Pot C lavulanate 875-125 MG eCW1 ([facility]) Amoxicillin 875 MG / Clavulanate 125 MG Oral Tablet Amoxicillin-Pot Clavulanate 875-125 MG Amoxicillin-Pot Clavulanate 875-125 MG 04/15/2021 12:00:00 AM ED T 1.0 {tablet} suspended Amoxicillin-Pot C lavulanate 875-125 MG eCW1 ([facility]) Amoxicillin 875 MG / Clavulanate 125 MG Oral Tablet Amoxicillin-Pot Clavulanate 875-125 MG Amoxicillin-Pot Clavulanate 875-125 MG 04/15/2021 12:00:00 AM ED T 1.0 {tablet} active Amoxicillin-Pot Cla vulanate 875-125 MG eCW1 ([facility]) Amoxicillin 875 MG / Clavulanate 125 MG Oral Tablet Amoxicillin-Pot Clavulanate 875-125 MG Amoxicillin-Pot Clavulanate 875-125 MG 04/15/2021 12:00:00 AM ED T 1.0 {tablet} suspended Amoxicillin-Pot C lavulanate 875-125 MG eCW1 ([facility]) Amoxicillin 875 MG / Clavulanate 125 MG Oral Tablet Amoxicillin-Pot Clavulanate 875-125 MG Amoxicillin-Pot Clavulanate 875-125 MG 04/15/2021 12:00:00 AM ED T 1.0 {tablet} suspended Amoxicillin-Pot C lavulanate 875-125 MG eCW1 ([facility]) Amoxicillin 875 MG / Clavulanate 125 MG Oral Tablet Amoxicillin-Pot Clavulanate 875-125 MG Amoxicillin-Pot Clavulanate 875-125 MG 04/15/2021 12:00:00 AM ED T 1.0 {tablet} active Amoxicillin-Pot Cla vulanate 875-125 MG eCW1 ([facility]) Amoxicillin 875 MG / Clavulanate 125 MG Oral Tablet Amoxicillin-Pot Clavulanate 875-125 MG Amoxicillin-Pot Clavulanate 875-125 MG 04/15/2021 12:00:00 AM ED T 1.0 {tablet} active Amoxicillin-Pot Cla vulanate 875-125 MG eCW1 ([facility]) Amoxicillin 875 MG / Clavulanate 125 MG Oral Tablet Amoxicillin-Pot Clavulanate 875-125 MG Amoxicillin-Pot Clavulanate 875-125 MG 04/15/2021 12:00:00 AM ED T 1.0 {tablet} suspended Amoxicillin-Pot C lavulanate 875-125 MG eCW1 ([facility]) Amoxicillin 875 MG / Clavulanate 125 MG Oral Tablet Amoxicillin-Pot Clavulanate 875-125 MG Amoxicillin-Pot Clavulanate 875-125 MG 04/15/2021 12:00:00 AM ED T 1.0 {tablet} active Amoxicillin-Pot Cla vulanate 875-125 MG eCW1 ([facility]) Amoxicillin 875 MG / Clavulanate 125 MG Oral Tablet Amoxicillin-Pot Clavulanate 875-125 MG Amoxicillin-Pot Clavulanate 875-125 MG 04/15/2021 12:00:00 AM ED T 1.0 {tablet} active Amoxicillin-Pot Cla vulanate 875-125 MG eCW1 ([facility]) Amoxicillin 875 MG / Clavulanate 125 MG Oral Tablet Amoxicillin-Pot Clavulanate 875-125 MG Amoxicillin-Pot Clavulanate 875-125 MG 04/15/2021 12:00:00 AM ED T 1.0 {tablet} suspended Amoxicillin-Pot C lavulanate 875-125 MG eCW1 ([facility]) Pen Botkins 32G X 5 MM Pen Botkins 32G X 5 MM 02/01/2021 12:00:[address] suspended Pen Botkins 32G X 5 MM eC W1 ([facility]) 0.5 ML dulaglutide 3 MG/ML Auto-Injector [Trulicity] T rulicity 1.5 MG/0.5ML Trulicity 1.5 MG/0.5ML 02/01/2021 12:00:00 AM EST active Trulicity 1.5 MG/0.5ML eCW1 ([facility]) Pen Botkins 32G X 5 MM Pen [place] 32G X 5 MM 02/01/2021 12:00:[address] active Pen [place]kins 32G X 5 MM eC W1 ([facility]) Pravastatin Sodium 20 MG Oral Tablet Pravastatin Sodium 20 M G 02/01/2021 12:00:00 AM EST 1.0 {tablet} active Pr avastatin Sodium 20 MG eCW1 ([facility]) Pravastatin Sodium 20 MG Oral Tablet Pravastatin Sodium 20 M G 02/01/2021 12:00:00 AM EST 1.0 {tablet} active Pr avastatin Sodium 20 MG eCW1 ([facility]) Pravastatin Sodium 20 MG Oral Tablet Pravastatin Sodium 20 M G 02/01/2021 12:00:00 AM EST 1.0 {tablet} active Pr avastatin Sodium 20 MG eCW1 ([facility]) 0.5 ML dulaglutide 3 MG/ML Auto-Injector [Trulicity] T rulicity 1.5 MG/0.5ML Trulicity 1.5 MG/0.5ML 02/01/2021 12:00:00 AM EST active Trulicity 1.5 MG/0.5ML eCW1 ([facility]) Pravastatin Sodium 20 MG Oral Tablet Pravastatin Sodium 20 M G 02/01/2021 12:00:00 AM EST 1.0 {tablet} active Pr avastatin Sodium 20 MG eCW1 ([facility]) Pen Botkins 32G X 5 MM Pen [place]kins 32G X 5 MM 02/01/2021 12:00:[address] suspended Pen [place]kins 32G X 5 MM eC W1 ([facility]) Pravastatin Sodium 20 MG Oral Tablet Pravastatin Sodium 20 M G 02/01/2021 12:00:00 AM EST 1.0 {tablet} active Pr avastatin Sodium 20 MG eCW1 ([facility]) Pravastatin Sodium 20 MG Oral Tablet Pravastatin Sodium 20 M G 02/01/2021 12:00:00 AM EST 1.0 {tablet} active Pr avastatin Sodium 20 MG eCW1 ([facility]) 0.5 ML dulaglutide 3 MG/ML Auto-Injector [Trulicity] T rulicity 1.5 MG/0.5ML Trulicity 1.5 MG/0.5ML 02/01/2021 12:00:00 AM EST active Trulicity 1.5 MG/0.5ML eCW1 ([facility]) Pen Botkins 32G X 5 MM Pen Botkins 32G X 5 MM 02/01/2021 12:00:[address] active Pen Botkins 32G X 5 MM eC W1 ([facility]) Pen Botkins 32G X 5 MM Pen Botkins 32G X 5 MM 02/01/2021 12:00:[address] suspended Pen Botkins 32G X 5 MM eC W1 ([facility]) Pen Botkins 32G X 5 MM Pen Botkins 32G X 5 MM 02/01/2021 12:00:[address] active Pen Botkins 32G X 5 MM eC W1 ([facility]) 0.5 ML dulaglutide 3 MG/ML Auto-Injector [Trulicity] T rulicity 1.5 MG/0.5ML Trulicity 1.5 MG/0.5ML 02/01/2021 12:00:00 AM EST active Trulicity 1.5 MG/0.5ML eCW1 ([facility]) Pen Botkins 32G X 5 MM Pen Botkins 32G X 5 MM 02/01/2021 12:00:[address] active Pen Botkins 32G X 5 MM eC W1 ([facility]) Pen Botkins 32G X 5 MM Pen Botkins 32G X 5 MM 02/01/2021 12:00:[address] suspended Pen [place]kins 32G X 5 MM eC W1 ([facility]) 0.5 ML dulaglutide 3 MG/ML Auto-Injector [Trulicity] T rulicity 1.5 MG/0.5ML Trulicity 1.5 MG/0.5ML 02/01/2021 12:00:00 AM EST active Trulicity 1.5 MG/0.5ML eCW1 ([facility]) 0.5 ML dulaglutide 3 MG/ML Auto-Injector [Trulicity] T rulicity 1.5 MG/0.5ML Trulicity 1.5 MG/0.5ML 02/01/2021 12:00:00 AM EST active Trulicity 1.5 MG/0.5ML eCW1 ([facility]) Pravastatin Sodium 20 MG Oral Tablet Pravastatin Sodium 20 M G 02/01/2021 12:00:00 AM EST 1.0 {tablet} active Pr avastatin Sodium 20 MG eCW1 ([facility]) Pen Botkins 32G X 5 MM Pen [place] 32G X 5 MM 02/01/2021 12:00:[address] active Pen [place] 32G X 5 MM eC W1 ([facility]) 0.5 ML dulaglutide 3 MG/ML Auto-Injector [Trulicity] T rulicity 1.5 MG/0.5ML Trulicity 1.5 MG/0.5ML 02/01/2021 12:00:00 AM EST active Trulicity 1.5 MG/0.5ML eCW1 ([facility]) 0.5 ML dulaglutide 3 MG/ML Auto-Injector [Trulicity] T rulicity 1.5 MG/0.5ML Trulicity 1.5 MG/0.5ML 02/01/2021 12:00:00 AM EST active Trulicity 1.5 MG/0.5ML eCW1 ([facility]) 0.5 ML dulaglutide 3 MG/ML Auto-Injector [Trulicity] T rulicity 1.5 MG/0.5ML Trulicity 1.5 MG/0.5ML 02/01/2021 12:00:00 AM EST active Trulicity 1.5 MG/0.5ML eCW1 ([facility]) Pen Botkins 32G X 5 MM Pen [place]kins 32G X 5 MM 02/01/2021 12:00:[address] suspended Pen [place]kins 32G X 5 MM eC W1 ([facility]) Pen Botkins 32G X 5 MM Pen [place]kins 32G X 5 MM 02/01/2021 12:00:[address] active eCW1 ([facility]) Pravastatin Sodium 20 MG Oral Tablet Pravastatin Sodium 20 M G 02/01/2021 12:00:00 AM EST 1.0 {tablet} active Pr avastatin Sodium 20 MG eCW1 ([facility]) Pen Botkins 32G X 5 MM Pen Botkins 32G X 5 MM 02/01/2021 12:00:[address] active Pen Botkins 32G X 5 MM eC W1 ([facility]) 0.5 ML dulaglutide 3 MG/ML Auto-Injector [Trulicity] T rulicity 1.5 MG/0.5ML Trulicity 1.5 MG/0.5ML 02/01/2021 12:00:00 AM EST active Trulicity 1.5 MG/0.5ML eCW1 ([facility]) 0.5 ML dulaglutide 3 MG/ML Auto-Injector [Trulicity] T rulicity 1.5 MG/0.5ML Trulicity 1.5 MG/0.5ML 02/01/2021 12:00:00 AM EST active Trulicity 1.5 MG/0.5ML eCW1 ([facility]) Pen Botkins 32G X 5 MM Pen Botkins 32G X 5 MM 02/01/2021 12:00:[address] active Pen [place]kins 32G X 5 MM eC W1 ([facility]) Pravastatin Sodium 20 MG Oral Tablet Pravastatin Sodium 20 M G 02/01/2021 12:00:00 AM EST 1.0 {tablet} active Pr avastatin Sodium 20 MG eCW1 ([facility]) 0.5 ML dulaglutide 3 MG/ML Auto-Injector [Trulicity] T rulicity 1.5 MG/0.5ML Trulicity 1.5 MG/0.5ML 02/01/2021 12:00:00 AM EST active eCW1 ([facility]) Pravastatin Sodium 20 MG Oral Tablet Pravastatin Sodium 20 M G 02/01/2021 12:00:00 AM EST 1.0 {tablet} active Pr avastatin Sodium 20 MG eCW1 ([facility]) Pravastatin Sodium 20 MG Oral Tablet Pravastatin Sodium 20 M G 02/01/2021 12:00:00 AM EST 1.0 {tablet} active Pr avastatin Sodium 20 MG eCW1 ([facility]) Pen Botkins 32G X 5 MM Pen Botkins 32G X 5 MM 02/01/2021 12:00:[address] active Pen Botkins 32G X 5 MM eC W1 ([facility]) Pravastatin Sodium 20 MG Oral Tablet Pravastatin Sodium 20 M G 02/01/2021 12:00:00 AM EST 1.0 {tablet} active Pr avastatin Sodium 20 MG eCW1 ([facility]) Pen Botkins 32G X 5 MM Pen Botkins 32G X 5 MM 02/01/2021 12:00:[address] active Pen [place]kins 32G X 5 MM eC W1 ([facility]) 0.5 ML dulaglutide 3 MG/ML Auto-Injector [Trulicity] T rulicity 1.5 MG/0.5ML Trulicity 1.5 MG/0.5ML 02/01/2021 12:00:00 AM EST active Trulicity 1.5 MG/0.5ML eCW1 ([facility]) Pen Botkins 32G X 5 MM Pen Botkins 32G X 5 MM 02/01/2021 12:00:[address] active Pen Botkins 32G X 5 MM eC W1 ([facility]) Pen Botkins 32G X 5 MM Pen Botkins 32G X 5 MM 02/01/2021 12:00:[address] suspended Pen Botkins 32G X 5 MM eC W1 ([facility]) 0.5 ML dulaglutide 3 MG/ML Auto-Injector [Trulicity] T rulicity 1.5 MG/0.5ML Trulicity 1.5 MG/0.5ML 02/01/2021 12:00:00 AM EST active Trulicity 1.5 MG/0.5ML eCW1 ([facility]) Pravastatin Sodium 20 MG Oral Tablet Pravastatin Sodium 20 M G 02/01/2021 12:00:00 AM EST 1.0 {tablet} active Pr avastatin Sodium 20 MG eCW1 ([facility]) Pravastatin Sodium 20 MG Oral Tablet Pravastatin Sodium 20 M G 02/01/2021 12:00:00 AM EST 1.0 {tablet} active Pr avastatin Sodium 20 MG eCW1 ([facility]) Pravastatin Sodium 20 MG Oral Tablet Pravastatin Sodium 20 M G 02/01/2021 12:00:00 AM EST 1.0 {tablet} active Pr avastatin Sodium 20 MG eCW1 ([facility]) 0.5 ML dulaglutide 3 MG/ML Auto-Injector [Trulicity] T rulicity 1.5 MG/0.5ML Trulicity 1.5 MG/0.5ML 02/01/2021 12:00:00 AM EST active Trulicity 1.5 MG/0.5ML eCW1 ([facility]) Pravastatin Sodium 20 MG Oral Tablet Pravastatin Sodium 20 M G 02/01/2021 12:00:00 AM EST 1.0 {tablet} active Pr avastatin Sodium 20 MG eCW1 ([facility]) 0.5 ML dulaglutide 3 MG/ML Auto-Injector [Trulicity] T rulicity 1.5 MG/0.5ML Trulicity 1.5 MG/0.5ML 02/01/2021 12:00:00 AM EST active Trulicity 1.5 MG/0.5ML eCW1 ([facility]) 0.5 ML dulaglutide 3 MG/ML Auto-Injector [Trulicity] T rulicity 1.5 MG/0.5ML Trulicity 1.5 MG/0.5ML 02/01/2021 12:00:00 AM EST active Trulicity 1.5 MG/0.5ML eCW1 ([facility]) 0.5 ML dulaglutide 3 MG/ML Auto-Injector [Trulicity] T rulicity 1.5 MG/0.5ML Trulicity 1.5 MG/0.5ML 02/01/2021 12:00:00 AM EST active Trulicity 1.5 MG/0.5ML eCW1 ([facility]) Pravastatin Sodium 20 MG Oral Tablet Pravastatin Sodium 20 M G 02/01/2021 12:00:00 AM EST 1.0 {tablet} active Pr avastatin Sodium 20 MG eCW1 ([facility]) Pen Botkins 32G X 5 MM Pen Botkins 32G X 5 MM 02/01/2021 12:00:[address] active Pen [place]kins 32G X 5 MM eC W1 ([facility]) Pravastatin Sodium 20 MG Oral Tablet Pravastatin Sodium 20 M G 02/01/2021 12:00:00 AM EST 1.0 {tablet} active Pr avastatin Sodium 20 MG eCW1 ([facility]) Pravastatin Sodium 20 MG Oral Tablet Pravastatin Sodium 20 M G 02/01/2021 12:00:00 AM EST 1.0 {tablet} active eCW1 ([facility]) Pen Botkins 32G X 5 MM Pen Botkins 32G X 5 MM 02/01/2021 12:00:[address] active Pen [place]kins 32G X 5 MM eC W1 ([facility]) Pen Botkins 32G X 5 MM Pen Botkins 32G X 5 MM 02/01/2021 12:00:[address] suspended Pen Botkins 32G X 5 MM eC W1 ([facility]) 0.5 ML dulaglutide 3 MG/ML Auto-Injector [Trulicity] T rulicity 1.5 MG/0.5ML Trulicity 1.5 MG/0.5ML 02/01/2021 12:00:00 AM EST active Trulicity 1.5 MG/0.5ML eCW1 ([facility]) Pravastatin Sodium 20 MG Oral Tablet Pravastatin Sodium 20 M G 02/01/2021 12:00:00 AM EST 1.0 {tablet} active Pr avastatin Sodium 20 MG eCW1 ([facility]) Pen Botkins 32G X 5 MM Pen Botkins 32G X 5 MM 02/01/2021 12:00:[address] active Pen Botkins 32G X 5 MM eC W1 ([facility]) 0.5 ML dulaglutide 3 MG/ML Auto-Injector [Trulicity] T rulicity 1.5 MG/0.5ML Trulicity 1.5 MG/0.5ML 02/01/2021 12:00:00 AM EST active Trulicity 1.5 MG/0.5ML eCW1 ([facility]) Pravastatin Sodium 20 MG Oral Tablet Pravastatin Sodium 20 M G 02/01/2021 12:00:00 AM EST 1.0 {tablet} active Pr avastatin Sodium 20 MG eCW1 ([facility]) Pravastatin Sodium 20 MG Oral Tablet Pravastatin Sodium 20 M G 02/01/2021 12:00:00 AM EST 1.0 {tablet} active Pr avastatin Sodium 20 MG eCW1 ([facility]) Pen Botkins 32G X 5 MM Pen Botkins 32G X 5 MM 02/01/2021 12:00:[address] suspended Pen Botkins 32G X 5 MM eC W1 ([facility]) Pravastatin Sodium 20 MG Oral Tablet Pravastatin Sodium 20 M G 02/01/2021 12:00:00 AM EST 1.0 {tablet} active Pr avastatin Sodium 20 MG eCW1 ([facility]) 0.5 ML dulaglutide 3 MG/ML Auto-Injector [Trulicity] T rulicity 1.5 MG/0.5ML Trulicity 1.5 MG/0.5ML 02/01/2021 12:00:00 AM EST active Trulicity 1.5 MG/0.5ML eCW1 ([facility]) 0.5 ML dulaglutide 3 MG/ML Auto-Injector [Trulicity] T rulicity 1.5 MG/0.5ML Trulicity 1.5 MG/0.5ML 02/01/2021 12:00:00 AM EST active Trulicity 1.5 MG/0.5ML eCW1 ([facility]) Pen Botkins 32G X 5 MM Pen Botkins 32G X 5 MM 02/01/2021 12:00:[address] active Pen Botkins 32G X 5 MM eC W1 ([facility]) 0.5 ML dulaglutide 3 MG/ML Auto-Injector [Trulicity] T rulicity 1.5 MG/0.5ML Trulicity 1.5 MG/0.5ML 02/01/2021 12:00:00 AM EST active Trulicity 1.5 MG/0.5ML eCW1 ([facility]) Pen Botkins 32G X 5 MM Pen Botkins 32G X 5 MM 02/01/2021 12:00:[address] active Pen Botkins 32G X 5 MM eC W1 ([facility]) Pravastatin Sodium 20 MG Oral Tablet Pravastatin Sodium 20 M G 02/01/2021 12:00:00 AM EST 1.0 {tablet} active Pr avastatin Sodium 20 MG eCW1 ([facility]) 0.5 ML dulaglutide 3 MG/ML Auto-Injector [Trulicity] T rulicity 1.5 MG/0.5ML Trulicity 1.5 MG/0.5ML 02/01/2021 12:00:00 AM EST active Trulicity 1.5 MG/0.5ML eCW1 ([facility]) Cephalexin 500 MG Oral Capsule Cephalexin 500 MG 10/25/2020 12:00:0 0 AM EST 1.0 {capsule} active Cephalexin 500 MG eCW1 ([facility]) Cephalexin 500 MG Oral Capsule Cephalexin 500 MG 10/25/2020 12:00:0 0 AM EST 1.0 {capsule} suspended Cephalexin 500 M G eCW1 ([facility]) Cephalexin 500 MG Oral Capsule Cephalexin 500 MG 10/25/2020 12:00:0 0 AM EST 1.0 {capsule} active Cephalexin 500 MG eCW1 ([facility]) Cephalexin 500 MG Oral Capsule Cephalexin 500 MG 10/25/2020 12:00:0 0 AM EST 1.0 {capsule} active Cephalexin 500 MG eCW1 ([facility]) Cephalexin 500 MG Oral Capsule Cephalexin 500 MG 10/25/2020 12:00:0 0 AM EST 1.0 {capsule} active Cephalexin 500 MG eCW1 ([facility]) Cephalexin 500 MG Oral Capsule Cephalexin 500 MG 10/25/2020 12:00:0 0 AM EST 1.0 {capsule} active Cephalexin 500 MG eCW1 ([facility]) Cephalexin 500 MG Oral Capsule Cephalexin 500 MG 10/25/2020 12:00:0 0 AM EST 1.0 {capsule} active Cephalexin 500 MG eCW1 ([facility]) Cephalexin 500 MG Oral Capsule Cephalexin 500 MG 10/25/2020 12:00:0 0 AM EST 1.0 {capsule} suspended Cephalexin 500 M G eCW1 ([facility]) Cephalexin 500 MG Oral Capsule Cephalexin 500 MG 10/25/2020 12:00:0 0 AM EST 1.0 {capsule} active Cephalexin 500 MG eCW1 ([facility]) Cephalexin 500 MG Oral Capsule Cephalexin 500 MG 10/25/2020 12:00:0 0 AM EST 1.0 {capsule} active Cephalexin 500 MG eCW1 ([facility]) Cephalexin 500 MG Oral Capsule Cephalexin 500 MG 10/25/2020 12:00:0 0 AM EST 1.0 {capsule} suspended Cephalexin 500 M G eCW1 ([facility]) Cephalexin 500 MG Oral Capsule Cephalexin 500 MG 10/25/2020 12:00:0 0 AM EST 1.0 {capsule} active Cephalexin 500 MG eCW1 ([facility]) Cephalexin 500 MG Oral Capsule Cephalexin 500 MG 10/25/2020 12:00:0 0 AM EST 1.0 {capsule} active Cephalexin 500 MG eCW1 ([facility]) Cephalexin 500 MG Oral Capsule Cephalexin 500 MG 10/25/2020 12:00:0 0 AM EST 1.0 {capsule} active Cephalexin 500 MG eCW1 ([facility]) Cephalexin 500 MG Oral Capsule Cephalexin 500 MG 10/25/2020 12:00:0 0 AM EST 1.0 {capsule} active Cephalexin 500 MG eCW1 ([facility]) Cephalexin 500 MG Oral Capsule Cephalexin 500 MG 10/25/2020 12:00:0 0 AM EST 1.0 {capsule} active Cephalexin 500 MG eCW1 ([facility]) Cephalexin 500 MG Oral Capsule Cephalexin 500 MG 10/25/2020 12:00:0 0 AM EST 1.0 {capsule} suspended Cephalexin 500 M G eCW1 ([facility]) Cephalexin 500 MG Oral Capsule Cephalexin 500 MG 10/25/2020 12:00:0 0 AM EST 1.0 {capsule} suspended Cephalexin 500 M G eCW1 ([facility]) Cephalexin 500 MG Oral Capsule Cephalexin 500 MG 10/25/2020 12:00:0 0 AM EST 1.0 {capsule} suspended Cephalexin 500 M G eCW1 ([facility]) Cephalexin 500 MG Oral Capsule Cephalexin 500 MG 10/25/2020 12:00:0 0 AM EST 1.0 {capsule} suspended Cephalexin 500 M G eCW1 ([facility]) Cephalexin 500 MG Oral Capsule Cephalexin 500 MG 10/25/2020 12:00:0 0 AM EST 1.0 {capsule} suspended Cephalexin 500 M G eCW1 ([facility]) Cephalexin 500 MG Oral Capsule Cephalexin 500 MG 10/25/2020 12:00:0 0 AM EST 1.0 {capsule} suspended Cephalexin 500 M G eCW1 ([facility]) Cephalexin 500 MG Oral Capsule Cephalexin 500 MG 10/25/2020 12:00:0 0 AM EST 1.0 {capsule} active Cephalexin 500 MG eCW1 ([facility]) Cephalexin 500 MG Oral Capsule Cephalexin 500 MG 10/25/2020 12:00:0 0 AM EST 1.0 {capsule} active Cephalexin 500 MG eCW1 ([facility]) Cephalexin 500 MG Oral Capsule Cephalexin 500 MG 10/25/2020 12:00:0 0 AM EST 1.0 {capsule} suspended Cephalexin 500 M G eCW1 ([facility]) Cephalexin 500 MG Oral Capsule Cephalexin 500 MG 10/25/2020 12:00:0 0 AM EST 1.0 {capsule} active eCW1 ([facility]) Cephalexin 500 MG Oral Capsule Cephalexin 500 MG 10/25/2020 12:00:0 0 AM EST 1.0 {capsule} active Cephalexin 500 MG eCW1 ([facility]) Cephalexin 500 MG Oral Capsule Cephalexin 500 MG 10/25/2020 12:00:0 0 AM EST 1.0 {capsule} active Cephalexin 500 MG eCW1 ([facility]) Cephalexin 500 MG Oral Capsule Cephalexin 500 MG 10/25/2020 12:00:0 0 AM EST 1.0 {capsule} suspended Cephalexin 500 M G eCW1 ([facility]) Cephalexin 500 MG Oral Capsule Cephalexin 500 MG 10/25/2020 12:00:0 0 AM EST 1.0 {capsule} active Cephalexin 500 MG eCW1 ([facility]) Insurance Providers Payer name Policy type / Coverage type Policy ID Covered libertarian ID Covered libertarian's relationship to self Policy Self Plan Information MEDICARE A [id number] Self [id number] [place] [id number] Self [id number] [place] [id number] Self Medicare [place] Primary [id number] Self [id number] MEDICAID [id number] SP [id number] HUMANA PPO [id number] SP [id number] HUMANA PPO [id number] SP [id number] MEDICARE [id number] SP [id number] A MEDICAID M [id number] S [id number] MEDICARE C [id number] S [id number] [place] B [id number] Self [id number] Medicare [place] Medicare Primary [id number] Self [id number] MEDICAID M UNAVAILABLE [id number] S [place] BLE [place] [id number] Self [id number] Medicare Dme Supplies Medigap Part B [id number] Self [id number] Medicare Dme Supplies Medigap Part B [id number] Self [id number] Medicare Dme Supplies Medigap Part B [id number] Self Medicare [facility] Medicare Primary [id number] Self Medicare [place] Primary [id number] Self /[facility] [employer] [id number] Self HMO BLUE [id number] SP [id number] HUMANA GOLD [id number] SP [id number] HUMANA GOLD [id number] SP [id number] MEDICARE [id number] SP [id number] HUMANA GOLD [id number] SP [id number] HUMANA GOLD O [id number] S [id number] Problems, Conditions, and Diagnoses Code Display Name Description Problem Type Effective Dates Data Source(s) I87.2 61004010 Venous stasis dermatitis of left lower ex tremity Problem 08/29/2021 12:00:00 AM EDT eCW1 ([facility]) Z79.4 [id number] 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 Proble m 02/01/2021 12:00:00 AM EST eCW1 ([facility]) E11.622 [id number] Type 2 diabetes mellitus with other skin ulcer Problem 02/01/2021 12:00:00 AM EST eCW1 ([facility]) Surgeries/Procedures No Information Results No Information Social History Code Duration Value Status Description Data Source(s ) Smoking 10/04/2021 12:00:00 AM EST Former Smoker completed Former Smoker eCW1 ([facility]) Smoking 10/04/2021 12:00:00 AM EST Former Smoker completed Former Smoker eCW1 ([facility]) Smoking 08/29/2021 12:00:00 AM EDT Former Smoker completed Former Smoker eCW1 ([facility]) Smoking 08/29/2021 12:00:00 AM EDT Former Smoker completed Former Smoker eCW1 ([facility]) Smoking 08/29/2021 12:00:00 AM EDT Former Smoker completed Former Smoker eCW1 ([facility]) Smoking 08/29/2021 12:00:00 AM EDT Former Smoker completed Former Smoker eCW1 ([facility]) Smoking 08/29/2021 12:00:00 AM EDT Former Smoker completed Former Smoker eCW1 ([facility]) Smoking 08/29/2021 12:00:00 AM EDT Former Smoker completed Former Smoker eCW1 ([facility]) Smoking 11/30/2020 12:00:00 AM EST Former Smoker completed Former Smoker eCW1 ([facility]) Smoking 11/30/2020 12:00:00 AM EST Former Smoker completed Former Smoker eCW1 ([facility]) Smoking 11/30/2020 12:00:00 AM EST Former Smoker completed Former Smoker eCW1 ([facility]) Smoking 11/30/2020 12:00:00 AM EST Former Smoker completed Former Smoker eCW1 ([facility]) Smoking 11/30/2020 12:00:00 AM EST Former Smoker completed Former Smoker eCW1 ([facility]) Smoking 11/30/2020 12:00:00 AM EST Former Smoker completed Former Smoker eCW1 ([facility]) Smoking 11/30/2020 12:00:00 AM EST Former Smoker completed Former Smoker eCW1 ([facility]) Smoking 11/30/2020 12:00:00 AM EST Former Smoker completed Former Smoker eCW1 ([facility]) Smoking 11/30/2020 12:00:00 AM EST Former Smoker completed Former Smoker eCW1 ([facility]) Smoking 11/30/2020 12:00:00 AM EST Former Smoker completed Former Smoker eCW1 ([facility]) Smoking 11/30/2020 12:00:00 AM EST Former Smoker completed Former Smoker eCW1 ([facility]) Smoking 11/30/2020 12:00:00 AM EST Former Smoker completed Former Smoker eCW1 ([facility]) Smoking 11/30/2020 12:00:00 AM EST Former Smoker completed Former Smoker eCW1 ([facility]) Smoking 11/30/2020 12:00:00 AM EST Former Smoker completed Former Smoker eCW1 ([facility]) Smoking 11/30/2020 12:00:00 AM EST Former Smoker completed Former Smoker eCW1 ([facility]) Smoking 11/30/2020 12:00:00 AM EST Former Smoker completed Former Smoker eCW1 ([facility]) Smoking 11/30/2020 12:00:00 AM EST Former Smoker completed Former Smoker eCW1 ([facility]) Smoking 11/30/2020 12:00:00 AM EST Former Smoker completed Former Smoker eCW1 ([facility]) Smoking 11/30/2020 12:00:00 AM EST Former Smoker completed Former Smoker eCW1 ([facility]) Vital Signs ID Date Data Source UNK Name Value Range Interpretation Code Description Data Source(s) Body weight 338 [lb_av] 338 [lb_av] eCW1 ([facility]) Body weight 153.32 kg 153.32 kg W1 ([facility]) Body height 66 [in_i] 66 [in_i] eCW1 ([facility]) Body mass index (BMI) [Ratio] 54.55 kg/m2 54.55 kg/m2 W1 ([facility]) Heart rate 96 /min 96 /min eCW1 ([facility]) Respiratory rate 20 /min 20 /min eCW1 ([facility]) Body temperature 98.0 [degF] 98.0 [degF] eCW1 ( [facility]) Systolic blood pressure 180 mm[Hg] 180 mm[Hg] e CW1 ([facility]) Diastolic blood pressure mm[Hg] eCW1 ([facility]) Body weight 317 [lb_av] 317 [lb_av] eCW1 ([facility]) Body height 66 [in_i] 66 [in_i] eCW1 ([facility]) Body mass index (BMI) [Ratio] 51.16 kg/m2 51.16 kg/m2 eCW1 ([facility]) Heart rate 93 /min 93 /min eCW1 ([facility]) Respiratory rate 18 /min 18 /min eCW1 ([facility]) Body temperature 98.4 [degF] 98.4 [degF] eCW1 ( [facility]) Systolic blood pressure 140 mm[Hg] 140 mm[Hg] e CW1 ([facility]) Diastolic blood pressure 76 mm[Hg] 76 mm[Hg] eCW1 ([facility]) Patient Treatment Plan of Care Planned Activity Planned Date Details Description Data Source (s) Doxycycline Monohydrate 100 MG Oral Capsule 10/04/2021 12:00:00 AM EST eCW1 ([facility]) Fluconazole 150 MG Oral Tablet 10/04/2021 12:00:00 AM EST eCW1 ([facility]) Doxycycline Monohydrate 100 MG Oral Capsule 10/04/2021 12:00:00 AM EST eCW1 ([facility]) Fluconazole 150 MG Oral Tablet 10/04/2021 12:00:00 AM EST eCW1 ([facility]) Cefadroxil 500 MG Oral Capsule 07/26/2021 12:00:00 AM EDT eCW1 ([facility]) Cefadroxil 500 MG Oral Capsule 07/26/2021 12:00:00 AM EDT eCW1 ([facility]) Cefadroxil 500 MG Oral Capsule 07/26/2021 12:00:00 AM EDT eCW1 ([facility]) Amoxicillin 875 MG / Clavulanate 125 MG Oral Tablet 04/15/20 12:00:00 AM EDT eCW1 ([facility]) Amoxicillin 875 MG / Clavulanate 125 MG Oral Tablet 05/24/20 21 12:00:00 AM EDT eCW1 ([facility]) Amoxicillin 875 MG / Clavulanate 125 MG Oral Tablet 04/15/20 21 12:00:00 AM EDT eCW1 ([facility]) Amoxicillin 875 MG / Clavulanate 125 MG Oral Tablet 04/15/20 21 12:00:00 AM EDT eCW1 ([facility]) Amoxicillin 875 MG / Clavulanate 125 MG Oral Tablet 04/15/20 21 12:00:00 AM EDT eCW1 ([facility]) Amoxicillin 875 MG / Clavulanate 125 MG Oral Tablet 04/15/20 21 12:00:00 AM EDT eCW1 ([facility]) Amoxicillin 875 MG / Clavulanate 125 MG Oral Tablet 04/15/20 21 12:00:00 AM EDT eCW1 ([facility]) Amoxicillin 875 MG / Clavulanate 125 MG Oral Tablet 04/15/20 21 12:00:00 AM EDT eCW1 ([facility]) 0.5 ML dulaglutide 3 MG/ML Auto-Injector [Trulicity] 021 12:00:00 AM EST eCW1 ([facility]) Pravastatin Sodium 20 MG Oral Tablet 02/01/2021 12:00:00 AM EST eCW1 ([facility]) 0.5 ML dulaglutide 3 MG/ML Auto-Injector [Trulicity] 021 12:00:00 AM EST eCW1 ([facility]) Pravastatin Sodium 20 MG Oral Tablet 02/01/2021 12:00:00 AM EST eCW1 ([facility]) Pen Botkins 32G X 5 MM 02/01/2021 12:00:00 AM EST eCW1 ([facility]) Pravastatin Sodium 20 MG Oral Tablet 02/01/2021 12:00:00 AM EST eCW1 ([facility]) 0.5 ML dulaglutide 3 MG/ML Auto-Injector [Trulicity] 03/12/2 021 12:00:00 AM EST eCW1 ([facility]) Pen Botkins 32G X 5 MM 02/01/2021 12:00:00 AM EST eCW1 ([facility]) Pravastatin Sodium 20 MG Oral Tablet 02/01/2021 12:00:00 AM EST eCW1 ([facility]) 0.5 ML dulaglutide 3 MG/ML Auto-Injector [Trulicity] 021 12:00:00 AM EST eCW1 ([facility]) Pen Botkins 32G X 5 MM 02/01/2021 12:00:00 AM EST eCW1 ([facility]) Pravastatin Sodium 20 MG Oral Tablet 02/01/2021 12:00:00 AM EST eCW1 ([facility]) 0.5 ML dulaglutide 3 MG/ML Auto-Injector [Trulicity] 12:00:00 AM EST eCW1 ([facility]) Pen Botkins 32G X 5 MM 02/01/2021 12:00:00 AM EST eCW1 ([facility]) Pravastatin Sodium 20 MG Oral Tablet 02/01/2021 12:00:00 AM EST eCW1 ([facility]) 0.5 ML dulaglutide 3 MG/ML Auto-Injector [Trulicity] 12:00:00 AM EST eCW1 ([facility]) Pen Botkins 32G X 5 MM 02/01/2021 12:00:00 AM EST eCW1 ([facility]) Pravastatin Sodium 20 MG Oral Tablet 02/01/2021 12:00:00 AM EST eCW1 ([facility]) 0.5 ML dulaglutide 3 MG/ML Auto-Injector [Trulicity] 12:00:00 AM EST eCW1 ([facility]) Pen Botkins 32G X 5 MM 02/01/2021 12:00:00 AM EST eCW1 ([facility]) Pravastatin Sodium 20 MG Oral Tablet 02/01/2021 12:00:00 AM EST eCW1 ([facility]) 0.5 ML dulaglutide 3 MG/ML Auto-Injector [Trulicity] 12:00:00 AM EST eCW1 ([facility]) Pen Botkins 32G X 5 MM 02/01/2021 12:00:00 AM EST eCW1 ([facility]) 0.5 ML dulaglutide 3 MG/ML Auto-Injector [Trulicity] 12:00:00 AM EST eCW1 ([facility]) Pravastatin Sodium 20 MG Oral Tablet 02/01/2021 12:00:00 AM EST eCW1 ([facility]) Pen Botkins 32G X 5 MM 02/01/2021 12:00:00 AM EST eCW1 ([facility]) 0.5 ML dulaglutide 3 MG/ML Auto-Injector [Trulicity] 12:00:00 AM EST eCW1 ([facility]) Pravastatin Sodium 20 MG Oral Tablet 02/01/2021 12:00:00 AM EST eCW1 ([facility]) Pen Botkins 32G X 5 MM 02/01/2021 12:00:00 AM EST eCW1 ([facility]) Pravastatin Sodium 20 MG Oral Tablet 02/01/2021 12:00:00 AM EST eCW1 ([facility]) 0.5 ML dulaglutide 3 MG/ML Auto-Injector [Trulicity] 12:00:00 AM EST eCW1 ([facility]) Pen Botkins 32G X 5 MM 02/01/2021 12:00:00 AM EST eCW1 ([facility]) Pravastatin Sodium 20 MG Oral Tablet 02/01/2021 12:00:00 AM EST eCW1 ([facility]) 0.5 ML dulaglutide 3 MG/ML Auto-Injector [Trulicity] 12:00:00 AM EST eCW1 ([facility]) Pen Botkins 32G X 5 MM 02/01/2021 12:00:00 AM EST eCW1 ([facility]) 0.5 ML dulaglutide 3 MG/ML Auto-Injector [Trulicity] 12:00:00 AM EST eCW1 ([facility]) Pravastatin Sodium 20 MG Oral Tablet 02/01/2021 12:00:00 AM EST eCW1 ([facility]) Pen Botkins 32G X 5 MM 02/01/2021 12:00:00 AM EST eCW1 ([facility]) Pravastatin Sodium 20 MG Oral Tablet 02/01/2021 12:00:00 AM EST eCW1 ([facility]) 0.5 ML dulaglutide 3 MG/ML Auto-Injector [Trulicity] 12:00:00 AM EST eCW1 ([facility]) Pen Botkins 32G X 5 MM 02/01/2021 12:00:00 AM EST eCW1 ([facility]) Pravastatin Sodium 20 MG Oral Tablet 02/01/2021 12:00:00 AM EST eCW1 ([facility]) 0.5 ML dulaglutide 3 MG/ML Auto-Injector [Trulicity] 12:00:00 AM EST eCW1 ([facility]) Pen Botkins 32G X 5 MM 02/01/2021 12:00:00 AM EST eCW1 ([facility]) Pravastatin Sodium 20 MG Oral Tablet 02/01/2021 12:00:00 AM EST eCW1 ([facility]) 0.5 ML dulaglutide 3 MG/ML Auto-Injector [Trulicity] 021 12:00:00 AM EST eCW1 ([facility]) Pravastatin Sodium 20 MG Oral Tablet 02/01/2021 12:00:00 AM EST eCW1 ([facility]) 0.5 ML dulaglutide 3 MG/ML Auto-Injector [Trulicity] 021 12:00:00 AM EST eCW1 ([facility]) Pen Botkins 32G X 5 MM 02/01/2021 12:00:00 AM EST eCW1 ([facility]) 0.5 ML dulaglutide 3 MG/ML Auto-Injector [Trulicity] 12:00:00 AM EST eCW1 ([facility]) Pravastatin Sodium 20 MG Oral Tablet 02/01/2021 12:00:00 AM EST eCW1 ([facility]) Pen Botkins 32G X 5 MM 02/01/2021 12:00:00 AM EST eCW1 ([facility]) Cephalexin 500 MG Oral Capsule 10/25/2020 12:00:00 AM EST eCW1 ([facility]) Cephalexin 500 MG Oral Capsule 10/25/2020 12:00:00 AM EST eCW1 ([facility]) Cephalexin 500 MG Oral Capsule 10/25/2020 12:00:00 AM EST eCW1 ([facility]) Cephalexin 500 MG Oral Capsule 10/25/2020 12:00:00 AM EST eCW1 ([facility]) Cephalexin 500 MG Oral Capsule 10/25/2020 12:00:00 AM EST eCW1 ([facility]) Cephalexin 500 MG Oral Capsule 10/25/2020 12:00:00 AM EST eCW1 ([facility]) Cephalexin 500 MG Oral Capsule 10/25/2020 12:00:00 AM EST eCW1 ([facility]) Cephalexin 500 MG Oral Capsule 10/25/2020 12:00:00 AM EST eCW1 ([facility]) Cephalexin 500 MG Oral Capsule 10/25/2020 12:00:00 AM EST eCW1 ([facility]) Cephalexin 500 MG Oral Capsule 10/25/2020 12:00:00 AM EST eCW1 ([facility]) Cephalexin 500 MG Oral Capsule 10/25/2020 12:00:00 AM EST eCW1 ([facility]) Cephalexin 500 MG Oral Capsule 10/25/2020 12:00:00 AM EST eCW1 ([facility]) Cephalexin 500 MG Oral Capsule 10/25/2020 12:00:00 AM EST eCW1 ([facility]) Cephalexin 500 MG Oral Capsule 10/25/2020 12:00:00 AM EST eCW1 ([facility]) Cephalexin 500 MG Oral Capsule 10/25/2020 12:00:00 AM EST eCW1 ([facility]) Cephalexin 500 MG Oral Capsule 10/25/2020 12:00:00 AM EST eCW1 ([facility]) Cephalexin 500 MG Oral Capsule 10/25/2020 12:00:00 AM EST eCW1 ([facility]) Cephalexin 500 MG Oral Capsule 10/25/2020 12:00:00 AM EST eCW1 ([facility]) Cephalexin 500 MG Oral Capsule 10/25/2020 12:00:00 AM EST eCW1 ([facility])
--- NOTE | 2021-10-21 15:34 | ECGEPIP ---
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
--- NOTE | 2021-10-21 15:41 | HPEPDOC ---
[facility] Medical History & Physical Date of Admission Oct 21, 2021 Date of Service: Oct 21, 2021 Attending Physician: BRIAN JEWELL MD History and Physical CHIEF COMPLAINT: SOB and worse with exertion. HISTORY OF PRESENT ILLNESS: 60 yo very pleasant lady with morbid obesity, HTN, IDDM, HLD, varicose veins, GERD, chart history of asthma, fibromyalgia, chronic back pain with herniated disc disease, dysthymia and CHF of unclear subtype reporting that she has been on PRN lasix since 2009 currently on PRN 40mg, who saw her PCP 2 weeks ago and was diagnosed with PNA and given 7d of doxycycline and was due for a follow up CXR today but on presenting to the outpatient center for imaging, she was profoundly short of breath requiring frequent resting and ultimately had an incident of urinary incontinence and nursing staff at the center called EMS that brought her to the ED. She also reported inability to lay supine with significant orthopnea for 2 weeks, heaviness of her legs, KIMBALL with feeling of heaviness in chest when she exerts her self, without fever, chills, maggy chest pain at rest, palpitations, LOC, congestion, productive coughing, abdominal pain, nausea, emesis or headaches. In the ED she was found to be mildly hypoxemic ~mid 80s % on room air and placed on 2L NC. She was hypertensive to SBP 190s, but otherwise afebrile and in normal sinus rhythm. EKG showed NSR with no ST segment changes, troponin I was 0.00 and telemetry showed NSR with infrequent PACs. Workup was notable for a negative respiratory panel, CXR that was really unrevealing without effusions, infil trates and overwhelming interstitial edema, while WBC was 7.5, hgb 12.6, platelets 180, Na 143, K 3.7, Cr 0.64. She was given lasix 40 mg Iv once and recommended for admission for likely CHF exacerbation. PAST MEDICAL HISTORY: morbid obesity HTN IDDM HLD varicose veins GERD chart history of asthma fibromyalgia chronic back pain with herniated disc disease dysthymia CHF of unclear subtype PAST SURGICAL HISTORY: Cholecystectomy R TKA bilateral carpal tunnel release partial hysterectomy R arm lump removal LLE vein ablation SOCIAL HISTORY: Tobacco use: Prior smoker, quit in 2007 ETOH: No Illicit drug use: No FAMILY HISTORY: Father: aged 82yo, from complications of COPD, was director corporate compliance smoker Mother: aged 62yo, from lymphoma Siblings: All have DM. Sister has thyroid disease ALLERGIES: Please see below. REVIEW OF SYSTEMS: 10 point ROS was otherwise negative except as noted in the HPI. HOME MEDICATIONS: Please see below. PHYSICAL EXAMINATION: VITAL SIGNS: see below GENERAL APPEARANCE: NAD, obese HEENT: NCAT, EOMI, MMM CARDIOVASCULAR: RRR, 2/6 holosystolic murmur heart throughout precordium LUNGS: Has posterior bilateral lung field crackles throughout, no wheezing or rhonchi, otherwise moving air well, on 2L NC ABDOMEN: Obese, normoactive bowel sounds, soft, NTND EXTREMITIES: Has 2+ pitting edema to thighs with chronic hemosiderosis hyperpigmented skin changes with hyperkeratosis NEUROLOGICAL: CN 3-12 intact, 5/5 strength throughout, clear speech PSYCHIATRIC: Aox3 LABORATORY DATA: Reviewed. See below. IMAGING: CXR: Mediastinum and cardiac silhouette are grossly normal for portable technique. Subtle bibasilar airspace disease cannot be excluded. No discrete focal consolidation. No effusion. No pneumothorax. IMPRESSION: Cannot exclude very subtle basilar airspace disease. MICROBIOLOGY: Please see below. ASSESSMENT: 60 yo W with morbid obesity, HTN, IDDM, HLD, varicose veins, GERD, chart history of asthma, fibromyalgia, chronic back pain with herniated disc disease, dysthymia and CHF of unclear subtype reporting that she has been on PRN lasix since 2009 currently on PRN 40mg, who saw her PCP 2 weeks ago and was diagnosed with PNA and given 7d of doxycycline and was due for a follow up CXR today but on presenting to the outpatient center for imaging, she was profoundly short of breath now being admitted for CHF exacerbation. PLAN: CHF exacerbation: -No echo on file, and does not recall ever having a heart ultrasound. Will do TTE -Telemetry -lasix 40 IV Q8H, for goal net negative 2L -consistent carb diet with 2g sodium and 2L/24h fluid restriction -daily weights -strict I/Os -EKG was non ischemic and troponin negative -supplemental O2 for hypoxemia to goal >90% IDDM: -begin at 100 units levemir QHS -SSI ACHS -FSBG ACHS -hypoglycemia protocol -hold invokana and trulicity GERD: -continue home omeprazole history of asthma: -continue home montelukast Fibromyalgia, neuropathy: -continue home gabapentin RLS? -continue home pramipexole Dysthymia: -continue venlafaxine and trazodone DVT ppx: lovenox Vital Signs Vital Signs Date Time Temp Pulse Resp B/P (MAP) Pulse Ox O2 Delivery O2 Flow Rate FiO2 10/21/21 14:45 89 162/96 (118) 99 10/21/21 11:56 99.1 24 10/21/21 10:55 Nasal Cannula 2.0 Laboratory Data Labs 24H Laboratory Tests 2 10/21/21 10:54: Immature Granulocyte % (Auto) 1.1, Neutrophils (%) (Auto) 73.5H, Lymphocytes (%) (Auto) 19.3L, Monocytes (%) (Auto) 5.6, Eosinophils (%) (Auto) 0.1, Basophils (%) (Auto) 0.4, Neutrophils # (Auto) 5.5, Lymphocytes # (Auto) 1.4L, Monocytes # (Auto) 0.4, Eosinophils # (Auto) 0.0, Basophils # (Auto) 0.0, Nucleated Red Blood Cells % (auto) 0.0, Anion Gap 6L, Glomerular Filtration Rate > 60.0, Calcium Level 8.6, Total Bilirubin 0.8, Direct Bilirubin 0.3H, Aspartate Amino Transf (AST/SGOT) 18, Alanine Aminotransferase (ALT/SGPT) 26, Alkaline P hosphatase 113, Total Protein 7.0, Albumin 3.3, Albumin/Globulin Ratio 0.9L 10/21/21 10:56: Coronavirus (COVID-19)(PCR) NEGATIVE, Influenza Type A (RT-PCR) NEGATIVE, Influenza Type B (RT-PCR) NEGATIVE, Respiratory Syncytial Virus (PCR) NEGATIVE 10/21/21 11:00: POC Troponin I (Misc) 0.00 CBC/BMP Laboratory Tests 10/21/21 10:54 Home Medications Scheduled Canagliflozin (Invokana) 300 Mg Tab, 300 MG PO DAILY Dulaglutide (Trulicity) 1.5 Mg/0.5 Ml Pen.injctr, 1.5 MG SC 1XWK Furosemide (Furosemide) 40 Mg Tab, 40 MG PO DAILY Gabapentin (Gabapentin) 300 Mg Capsule, 300 MG PO QID Insulin Glargine,Hum.rec.anlog (Tojuvenal Solostar) 300 Unit/Ml Inj, 104 UNIT SC QHS Levocetirizine Dihydrochloride (Levocetirizine Dihydrochloride) 5 Mg Tab, 5 MG PO QHS Montelukast Sodium (Montelukast Sodium) 10 Mg Tab, 10 MG PO QHS Omeprazole (Omeprazole) 40 Mg Cap, 40 MG PO DAILY Pramipexole Di-HCl (Mirapex) 0.5 Mg Tablet, 0.5 MG PO QHS Pravastatin Sodium (Pravastatin Sodium) 20 Mg Tablet, 20 MG PO DAILY Trazodone HCl (Trazodone HCl) 100 Mg Tab, 100 MG PO QHS Venlafaxine HCl (Venlafaxine HCl ER) 150 Mg Cap, 150 MG PO QHS Venlafaxine HCl (Venlafaxine HCl) 37.5 Mg Tab, 37.5 MG PO BID Allergies Coded Allergies: No Known Allergies (Verified , 01/29/13) A-FIB/CHADSVASC A-FIB History Current/History of A-Fib/PAF?: No Current PO Anticoag Therapy: No Age/Risk Factor Scoring CHADSVASC: CHADSVASC Response (Comments) Value Age Risk Factor Age < 65 years old 0 Gender Risk Factor Female 1 Hx of CHF Yes 1 Hx of HTN Yes 1 Hx of Stroke/TIA/or VTE No 0 Hx of Diabetes Yes 1 Hx of Vascular Disease Yes 1 Total 5 Treatment Treatment ordered: NONE Reason Anticoagulant not given: Not indicated/[id number] BRIAN JEWELL MD Oct 21, 2021 15:41
[2021-10-21 16:09] VITALS: BP 155/79
[2021-10-21] MEDS: HumaLOG INSULIN (NovoLOG) PER UNIT SC SCH ×2 (18:34→19:59)
[2021-10-21] MEDS: OMEPRAZOLE 20 MG CAP PO SCH (18:35)
[2021-10-21] MEDS: GABAPENTIN 300 MG CAP PO SCH ×2 (18:35→21:00)
[2021-10-21] MEDS: ENOXAPARIN 40MG/0.4ML SYRINGE (J1650 PER 10MG) SC SCH (18:36)
[2021-10-21] MEDS: PRAVASTATIN 20 MG TAB PO SCH (18:36)
--- NOTE | 2021-10-21 19:59 | IPNPDOC ---
Text Note Date of Service The patient was seen on 10/21/21. NOTE Informed at approx 1930 that patient had wishes to have code status of DO NOT RESUSCITATE/DO NOT INTUBATE. Saw and spoke with patient at this time and explained to her that this meant we would not perform chest compressions or intubate patient in the event of an arrest. Patient verbalized understanding. I believe patient has good mental capacity and is capable of making this decision for herself. MOLST form filled out. VS,Leighanne, I+O VS, Robert, I+O Laboratory Tests 10/21/21 10:54 Vital Signs Date Time Temp Pulse Resp B/P (MAP) Pulse Ox O2 Delivery O2 Flow Rate FiO2 10/21/21 16:09 98.0 92 18 155/79 (104) 95 Nasal Cannula 2.0 CIERRA TRAYLOR Oct 21, 2021 19:59
[2021-10-21] MEDS: VENLAFAXINE **XR** 75MG CAPSULE PO SCH (20:05)
[2021-10-21] MEDS: MONTELUKAST 10 MG TAB PO SCH (20:05)
[2021-10-21] MEDS: VENLAFAXINE 37.5 MG TAB PO SCH (20:05)
[2021-10-21] MEDS: PRAMIPEXOLE 0.25 MG TAB PO SCH (20:05)
[2021-10-21] MEDS: CETIRIZINE (ZyrTEC) 10 MG TAB PO SCH (20:06)
[2021-10-21] MEDS: traZODone 100 MG TAB PO SCH (20:06)
[2021-10-21] MEDS: LEVEMIR (INSULIN DETEMIR) 1 UNITS/0.01ML SC SCH (20:06)
[2021-10-21 22:00] VITALS: BP_SYST 159; BP_SYST 170; BP_DIAS 75; BP_DIAS 89
[2021-10-22] MEDS ORDERED: FUROSEMIDE 40MG/4ML VIAL (J1940) IV SCH
[2021-10-22 06:00] VITALS: BP 123/57
[2021-10-22 06:24] LABS: HEMATOCRIT 41.7 % (36.0-47.0); HEMOGLOBIN 12.3 g/dl (12.0-15.5); MEAN CORPUSCULAR HEMOGLOBIN 27.8 pg (27.0-33.0); MEAN CORPUSCULAR HGB CONC 29.5 g/dl (32.0-36.5); MEAN CORPUSCULAR VOLUME 94.1 fl (80.0-96.0); PLATELET COUNT, AUTOMATED 165 10^3/uL (150-450); RED BLOOD COUNT 4.43 10^6/uL (4.00-5.40); WHITE BLOOD COUNT 8.1 10^3/uL (4.0-10.0)
[2021-10-22 07:02] LABS: BLOOD UREA NITROGEN 15 MG/DL (7-18); CALCIUM LEVEL 8.5 MG/DL (8.5-10.1); CARBON DIOXIDE LEVEL 39 MEQ/L (21-32); CHLORIDE LEVEL 104 MEQ/L (98-107); CREATININE FOR GFR 0.55 MG/DL (0.55-1.30); GLOMERULAR FILTRATION RATE > 60.0 (>51); GLUCOSE, FASTING 103 MG/DL (70-100); MAGNESIUM LEVEL 1.9 MG/DL (1.8-2.4); NT-PRO BNP 241 PG/ML (<125); POTASSIUM SERUM 2.9 MEQ/L (3.5-5.1); SODIUM LEVEL 148 MEQ/L (136-145)
[2021-10-22] MEDS: HumaLOG INSULIN (NovoLOG) PER UNIT SC SCH ×4 (08:34→20:38)
[2021-10-22] MEDS: ENOXAPARIN 40MG/0.4ML SYRINGE (J1650 PER 10MG) SC SCH (08:36)
[2021-10-22] MEDS: OMEPRAZOLE 20 MG CAP PO SCH (08:37)
[2021-10-22] MEDS: VENLAFAXINE 37.5 MG TAB PO SCH ×2 (08:37→20:48)
[2021-10-22] MEDS: GABAPENTIN 300 MG CAP PO SCH ×4 (08:37→20:48)
[2021-10-22] MEDS: PRAVASTATIN 20 MG TAB PO SCH (08:37)
--- NOTE | 2021-10-22 08:45 | ECHO ---
ECHOCARDIOGRAM DATE OF PROCEDURE: 10/21/2021 Age: Gender: F Height: 165 cm Weight: 149 kg REFERRING PHYSICIAN: Dr. Agosto INDICATION: Congestive heart failure MEASUREMENTS: IVS: 1.2 LV: 5.8 LVPW: 1.4 LA: 4.4 Aorta: 3.8 IVC: 2.5 Mitral E wave velocity is 113; A wave 77 E prime septal: 7.1 E prime lateral: 8.9 FINDINGS: This study is of limited technical quality corresponding to patient's body habitus; underlying sinus rhythm. Left ventricle is mildly dilated and there is mild left ventricular hypertrophy. Based on very limited views, I estimate mildly reduced left ventricular (LV) systolic function, with ejection fraction (EF) around 50%. No obvious segmental wall motion abnormalities noted. Right ventricle was poorly visualized. Both atria appear at least somewhat enlarged. Aortic valve was poorly seen and I cannot comment much on its structure. Mitral and tricuspid valves appear grossly normal. Pulmonic valve was not seen. No pericardial effusion is noted. Inferior vena cava is dilated and there is no appreciable collaps with inspiration indicative of very high central venous pressure. Aortic root is borderline dilated at 3.8 cm. Aortic arch and abdominal aorta appears normal. Doppler interrogation of aortic valve reveals no significant stenosis or insufficiency. Same applies for mitral and tricuspid valves. Mitral inflow pattern and tissue Doppler imaging of mitral annulus revealed grade 2 diastolic dysfunction. CONCLUSIONS: 1. Study is of rather limited technical quality corresponding to patient's body habitus. Underlying sinus rhythm. 2. Mildly dilated left ventricle with mild left ventricular hypertrophy and probably mildly reduced left ventricular (LV) systolic function, estimated ejection fraction (EF) in the neighborhood of 50%. This is based on very poor quality of images. 3. No hemodynamically significant valvular disease. 4. Mildly dilated aortic root (3.8 cm). 5. High central venous pressure. 6. Unable to estimate pulmonary artier pressure. [facility]
[2021-10-22] MEDS ORDERED: POTASSIUM CHLORIDE 10MEQ SR TABLET PO ONE ×2 (10:00→13:00)
[2021-10-22] MEDS: FUROSEMIDE 40MG/4ML VIAL (J1940) IV SCH ×2 (10:22→16:48)
[2021-10-22 14:00] VITALS: BP 143/71
[2021-10-22] MEDS: POTASSIUM CHLORIDE 10MEQ SR TABLET PO SCH ×2 (16:48→20:48)
--- NOTE | 2021-10-22 17:06 | IPNPDOC ---
Subjective Date Seen The patient was seen on 10/22/21. Subjective Chief Complaint/HPI Patient feeling much better this morning. Says her leg swelling has improved and she is able to bend her knees at this point. Denies any shortness of breath. Denies any cough or phlegm. No fever or chills. Objective Physical Examination General Exam: Positive: Alert, Cooperative, No Acute Distress Eye Exam: Positive: PERRLA, Conjunctiva & lids normal, EOMI; Negative: Sclera icteric ENT Exam: Positive: Atraumatic, Mucous membr. moist/pink, Pharynx Normal Neck Exam: Positive: Supple; Negative: JVD, thyromegaly Chest Exam: Positive: Normal air movement, Diminished (Diminished at the bases) Heart Exam: Positive: Rate Normal, Regular Rhythm, Normal S1, Normal S2; Negative: Murmurs, Rubs Abdomen Exam: Positive: Normal bowel sounds, Soft, Other (Obese); Negative: Tenderness Extremity Exam: Positive: Edema; Negative: Clubbing, Cyanosis Skin Exam: Positive: Other skin issue (Bilateral chronic venous stasis changes) Psych Exam: Positive: Memory Intact, Oriented x 3 Assessment /Plan Assessment 60 yo W with morbid obesity, HTN, IDDM, HLD, varicose veins, GERD, chart history of asthma, fibromyalgia, chronic back pain with herniated disc disease, dysthymia and CHF of unclear subtype reporting that she has been on PRN lasix since 2009 currently on PRN 40mg, who saw her PCP 2 weeks ago and was diagnosed with PNA and given 7d of doxycycline and was due for a follow up CXR today but on presenting to the outpatient center for imaging, she was profoundly short of breath now being admitted for CHF exacerbation. CHF exacerbation with hypoxia No echo on file, and does not recall ever having a heart ultrasound. Will do TTE lasix IV Daily weights, intake output 2 g sodium diet, fluid restriction 2 L We will try to wean oxygen Hypokalemia Potassium replaced IDDM: Continue Levemir and lispro Fingerstick AC nature Morbid obesity BMI 52.9 Likely has undiagnosed sleep apnea GERD home omeprazole History of asthma: continue home montelukast, albuterol as needed Fibromyalgia, neuropathy: continue home gabapentin RLS? continue home pramipexole Dysthymia: continue venlafaxine and trazodone Hypertension We will hold antihypertensive medications to allow for IV Lasix for diuresis Hyperlipidemia Continue statin Plan/VTE VTE Prophylaxis Ordered?: Yes VS, I&O, 24H, Fishbone Vital Signs/I&O Vital Signs Date Time Temp Pulse Resp B/P (MAP) Pulse Ox O2 Delivery O2 Flow Rate FiO2 10/22/21 14:00 97.8 88 17 143/71 (95) 91 Nasal Cannula 1.5 I&O- Last 24 Hours up to 6 AM 10/22/21 06:00 Intake Total 800 ml Output Total 3050 ml Balance -2250 ml Laboratory Data 24H LABS Laboratory Tests 2 10/21/21 17:50: Bedside Glucose (Misc Panel) 154H 10/21/21 19:53: Bedside Glucose (Misc Panel) 165H 10/22/21 05:28: Nucleated Red Blood Cells % (auto) 0.0, Anion Gap 5L, Glomerular Filtration Rate > 60.0, Calcium Level 8.5, Magnesium Level 1.9, [id number] Natriuretic Peptide 241H 10/22/21 11:56: Bedside Glucose (Misc Panel) 188H 10/22/21 16:46: Bedside Glucose (Misc Panel) 218H CBC/BMP Laboratory Tests 10/22/21 05:28 Gudelia Allan MD Oct 22, 2021 17:06
[2021-10-22 18:43] LABS: BLOOD UREA NITROGEN 17 MG/DL (7-18); CALCIUM LEVEL 8.8 MG/DL (8.5-10.1); CARBON DIOXIDE LEVEL 38 MEQ/L (21-32); CHLORIDE LEVEL 104 MEQ/L (98-107); CREATININE FOR GFR 0.77 MG/DL (0.55-1.30); GLOMERULAR FILTRATION RATE > 60.0 (>51); GLUCOSE, FASTING 213 MG/DL (70-100); POTASSIUM SERUM 3.5 MEQ/L (3.5-5.1); SODIUM LEVEL 146 MEQ/L (136-145)
[2021-10-22 20:32] VITALS: BP 134/69
[2021-10-22] MEDS: MONTELUKAST 10 MG TAB PO SCH (20:48)
[2021-10-22] MEDS: traZODone 100 MG TAB PO SCH (20:48)
[2021-10-22] MEDS: CETIRIZINE (ZyrTEC) 10 MG TAB PO SCH (20:48)
[2021-10-22] MEDS: VENLAFAXINE **XR** 75MG CAPSULE PO SCH (20:48)
[2021-10-22] MEDS: PRAMIPEXOLE 0.25 MG TAB PO SCH (20:48)
[2021-10-22] MEDS: LEVEMIR (INSULIN DETEMIR) 1 UNITS/0.01ML SC SCH (20:54)
[2021-10-22] MEDS ORDERED: SODIUM CHLORIDE NASAL 0.65% SPRAY BTL (OCEAN) PRN (22:50)
[2021-10-23 06:00] VITALS: BP 142/80
[2021-10-23 06:22] LABS: HEMATOCRIT 40.9 % (36.0-47.0); HEMOGLOBIN 12.3 g/dl (12.0-15.5); MEAN CORPUSCULAR HGB CONC 30.1 g/dl (32.0-36.5); MEAN CORPUSCULAR VOLUME 93.2 fl (80.0-96.0); PLATELET COUNT, AUTOMATED 165 10^3/uL (150-450); RED BLOOD COUNT 4.39 10^6/uL (4.00-5.40); WHITE BLOOD COUNT 7.2 10^3/uL (4.0-10.0)
[2021-10-23 06:51] LABS: BLOOD UREA NITROGEN 19 MG/DL (7-18); CALCIUM LEVEL 8.3 MG/DL (8.5-10.1); CARBON DIOXIDE LEVEL 40 MEQ/L (21-32); CHLORIDE LEVEL 103 MEQ/L (98-107); CREATININE FOR GFR 0.56 MG/DL (0.55-1.30); GLOMERULAR FILTRATION RATE > 60.0 (>51); GLUCOSE, FASTING 67 MG/DL (70-100); MAGNESIUM LEVEL 1.8 MG/DL (1.8-2.4); POTASSIUM SERUM 3.3 MEQ/L (3.5-5.1); SODIUM LEVEL 147 MEQ/L (136-145)
[2021-10-23] MEDS: HumaLOG INSULIN (NovoLOG) PER UNIT SC SCH ×2 (07:30→12:12)
[2021-10-23] MEDS ORDERED: NYSTATIN 100,000 UNITS/GM TOPICAL PWD 15 GM TOP SCH (09:00)
[2021-10-23] MEDS: PRAVASTATIN 20 MG TAB PO SCH (09:24)
[2021-10-23] MEDS: GABAPENTIN 300 MG CAP PO SCH ×3 (09:24→16:06)
[2021-10-23] MEDS: OMEPRAZOLE 20 MG CAP PO SCH (09:24)
[2021-10-23] MEDS: POTASSIUM CHLORIDE 10MEQ SR TABLET PO SCH ×2 (09:24→16:06)
[2021-10-23] MEDS: ENOXAPARIN 40MG/0.4ML SYRINGE (J1650 PER 10MG) SC SCH (09:24)
[2021-10-23] MEDS: VENLAFAXINE 37.5 MG TAB PO SCH (09:25)
[2021-10-23] MEDS ORDERED: TORS20TA2 PO (09:50)
[2021-10-23] MEDS ORDERED: POTA10CA32 PO (09:50)
[2021-10-23 10:25] LABS: ABG BASE EXCESS 9.5 (-2.0-2.0); ABG HCO3 34.7 MEQ/L (22.0-26.0); ABG O2 SATURATION 91.4 % (95.0-99.0); ABG PARTIAL PRESSURE O2 58.9 mmHg (75.0-100.0); ABG STANDARD HCO3 33.2 MEQ/L (22.0-26.0); ABG TOTAL CO2 36.2 MEQ/L (22.0-29.0); ABG pH (ARTERIAL) 7.468 UNITS (7.350-7.450)
[2021-10-23 14:00] VITALS: BP 160/93
--- NOTE | 2021-10-25 08:13 | DS.PDOC ---
Discharge Summary General Date of Admission Oct 21, 2021 at 10:35 Date of Discharge 10/23/21 Discharge Summary PROCEDURES PERFORMED DURING STAY: [None]. DISCHARGE DIAGNOSES: Acute Systolic and diastolic congestive heart failure Obesity Hypoventilation Right hear failure with likely severe pulmonary hypertension Possible CASSIUS. SECONDARY DIAGNOSIS: Morbid obesity, HTN, IDDM, HLD, varicose veins, GERD, chart history of asthma, fibromyalgia, chronic back pain with herniated disc disease, dysthymia, RLS COMPLICATIONS/CHIEF COMPLAINT: Chf,Hypoxia. HOSPITAL COURSE: 60 yo W with morbid obesity, HTN, IDDM, HLD, varicose veins, GERD, chart history of asthma, fibromyalgia, chronic back pain with herniated disc disease, dysthymia and CHF of unclear subtype reporting that she has been on PRN lasix since 2009 currently on PRN 40mg, who saw her PCP 2 weeks ago and was diagnosed with PNA and given 7d of doxycycline and was due for a follow up CXR today but on presenting to the outpatient center for imaging, she was profoundly short of breath now being admitted for CHF exacerbation. CHF exacerbation with hypoxia Echo as below. EF of 50% and grade 2 diastolic dysfunction, elevated central venous pressure and likely severe pulmonary hypertension. torsemide Daily weights, intake output 2 g sodium diet, fluid restriction 2 L Hypokalemia Potassium replaced IDDM: continue home meds. Morbid obesity with obesity hypoventilation and likely CASSIUS BMI 52.9 persistently hypoxic to 85% in RA when awake and resting ABG in awake state showed hypoxia and hypercarbia. discharged with home oxygen. GERD home omeprazole History of asthma: continue home montelukast, albuterol as needed Fibromyalgia, neuropathy: continue home gabapentin RLS continue home pramipexole Dysthymia: continue venlafaxine and trazodone Hypertension We will hold antihypertensive medications to allow for IV Lasix for diuresis Hyperlipidemia Continue statin DISCHARGE MEDICATIONS: Please see below. ALLERGIES: Please see below. PHYSICAL EXAMINATION ON DISCHARGE: VITAL SIGNS: Please see below. General Exam: Positive: Alert, Cooperative, No Acute Distress Eye Exam: Positive: PERRLA, Conjunctiva & lids normal, EOMI; Negative: Sclera icteric ENT Exam: Positive: Atraumatic, Mucous membr. moist/pink, Pharynx Normal Neck Exam: Positive: Supple; Negative: JVD, thyromegaly Chest Exam: Positive: Normal air movement, Diminished (Diminished at the bases) Heart Exam: Positive: Rate Normal, Regular Rhythm, Normal S1, Normal S2; Negative: Murmurs, Rubs Abdomen Exam: Positive: Normal bowel sounds, Soft, Other (Obese); Negative: Tenderness Extremity Exam: Positive: Edema; Negative: Clubbing, Cyanosis Skin Exam: Positive: Other skin issue (Bilateral chronic venous stasis changes) Psych Exam: Positive: Memory Intact, Oriented x 3 LABORATORY DATA: Please see below. IMAGING: ECHO: MEASUREMENTS: IVS: 1.2 LV: 5.8 LVPW: 1.4 LA: 4.4 Aorta: 3.8 IVC: 2.5 Mitral E wave velocity is 113; A wave 77 E prime septal: 7.1 E prime lateral: 8.9 FINDINGS: This study is of limited technical quality corresponding to patient's body habitus; underlying sinus rhythm. Left ventricle is mildly dilated and there is mild left ventricular hypertrophy. Based on very limited views, I estimate mildly reduced left ventricular (LV) systolic function, with ejection fraction (EF) around 50%. No obvious segmental wall motion abnormalities noted. Right ventricle was poorly visualized. Both atria appear at least somewhat enlarged. Aortic valve was poorly seen and I cannot comment much on its structure. Mitral and tricuspid valves appear grossly normal. Pulmonic valve was not seen. No pericardial effusion is noted. Inferior vena cava is dilated and there is no appreciable collaps with inspiration indicative of very high central venous pressure. Aortic root is borderline dilated at 3.8 cm. Aortic arch and abdominal aorta appears normal. Doppler interrogation of aortic valve reveals no significant stenosis or insufficiency. Same applies for mitral and tricuspid valves. Mitral inflow pattern and tissue Doppler imaging of mitral annulus revealed grade 2 diastolic dysfunction. CONCLUSIONS: 1. Study is of rather limited technical quality corresponding to patient's body habitus. Underlying sinus rhythm. 2. Mildly dilated left ventricle with mild left ventricular hypertrophy and probably mildly reduced left ventricular (LV) systolic function, estimated ejection fraction (EF) in the neighborhood of 50%. This is based on very poor quality of images. 3. No hemodynamically significant valvular disease. 4. Mildly dilated aortic root (3.8 cm). 5. High central venous pressure. 6. Unable to estimate pulmonary artier pressure. ACTIVITY: [As tolerated]. DIET: Carb consistent , 2 gm sodium, fluid restriction 2 L DISPOSITION: 01 Home, Self-Care. DISCHARGE INSTRUCTIONS: PMD in 1 week Use Oxygen 24 x7 @ 2 l/ min Needs sleep study Needs referral to cardiology for CHF. DISCHARGE CONDITION: [Stable]. TIME SPENT ON DISCHARGE: 40 minutes. Vital Signs/I&Os Vital Signs Date Time Temp Pulse Resp B/P (MAP) Pulse Ox O2 Delivery O2 Flow Rate FiO2 10/23/21 14:00 97.8 88 18 160/93 (115) 93 Room Air 10/23/21 10:00 1.0 Discharge Medications Scheduled Canagliflozin (Invokana) 300 Mg Tab, 300 MG PO DAILY, (Reported) Dulaglutide (Trulicity) 1.5 Mg/0.5 Ml Pen.injctr, 1.5 MG SC 1XWK, (Reported) Gabapentin (Gabapentin) 300 Mg Capsule, 300 MG PO QID, (Reported) Insulin Glargine,Hum.rec.anlog (Toujeo Solostar) 300 Unit/Ml Inj, 104 UNIT SC QHS, (Reported) Levocetirizine Dihydrochloride (Levocetirizine Dihydrochloride) 5 Mg Tab, 5 MG PO QHS, (Reported) Montelukast Sodium (Montelukast Sodium) 10 Mg Tab, 10 MG PO QHS, (Reported) Omeprazole (Omeprazole) 40 Mg Cap, 40 MG PO DAILY, (Reported) Potassium Chloride (Potassium Chloride) 10 Meq Capsule.er, 1 CAP PO DAILY Pramipexole Di-HCl (Mirapex) 0.5 Mg Tablet, 0.5 MG PO QHS, (Reported) Pravastatin Sodium (Pravastatin Sodium) 20 Mg Tablet, 20 MG PO DAILY, (Reported) Torsemide (Torsemide) 20 Mg Tablet, 1 TAB PO DAILY Trazodone HCl (Trazodone HCl) 100 Mg Tab, 100 MG PO QHS, (Reported) Venlafaxine HCl (Venlafaxine HCl ER) 150 Mg Cap, 150 MG PO QHS, (Reported) Venlafaxine HCl (Venlafaxine HCl) 37.5 Mg Tab, 37.5 MG PO BID, (Reported) Allergies Coded Allergies: No Known Allergies (Verified , 01/29/13) Gudelia Allan MD Oct 25, 2021 08:13
== END 2021-10-23 17:57 | disposition home or self-care (01) ==
LOC: M ED 10:34 → EDBD 10:34 → M ED INP 10:35 → ENRESERV 15:23 → M MSPAV 16:10
PROVIDERS: ADMIT Internal Medicine; ATTEND Internal Medicine Nephrology
DX: I50.9 Heart failure, unspecified (principal); R09.02 Hypoxemia; E87.6 Hypokalemia; E66.01 Morbid (severe) obesity due to excess calories; I10 Essential (primary) hypertension; E78.5 Hyperlipidemia, unspecified; E11.9 Type 2 diabetes mellitus without complications; K21.9 Gastro-esophageal reflux disease without esophagitis; M79.7 Fibromyalgia; G89.29 Other chronic pain; F34.1 Dysthymic disorder; Z87.891 Personal history of nicotine dependence; Z79.899 Other long term (current) drug therapy
CPT/HCPCS: 36415; 71045; 80048; 80076; 82803; 83735; 83880; 84484; 85025; 85027; 87631; 93005; 93041; 93306; 94640; 94760; 96372; 96374; 96376; 97161; 97165; 97530; 99285; G0378; J1650; J1940

== ENCOUNTER 2021-12-31 13:20 | Emergency (ER) | payer MEDICARE, OTHER ==
[~2021-12-31] VITALS: Ht 167.6 cm; Wt 147.7 kg
[~2021-12-31 13:20] MED LIST changes: +GABA-282 PO; +MIRA0.5T PO; -MONT10TA10 PO; +MONT10TA97 PO; +POTA10CA32 PO; +PRAV20TA2 PO; +TORS20TA2 PO; +TRUL0.5I SC
[2021-12-31 14:46] LABS: BASO % 0.2 % (0.0-1.0); HEMATOCRIT 38.1 % (36.0-47.0); HEMOGLOBIN 12.1 g/dl (12.0-15.5); LYMPH # 0.9 10^3/uL (1.5-5.0); LYMPH % 19.7 % (24.0-44.0); MEAN CORPUSCULAR HEMOGLOBIN 28.9 pg (27.0-33.0); MEAN CORPUSCULAR HGB CONC 31.8 g/dl (32.0-36.5); MEAN CORPUSCULAR VOLUME 91.1 fl (80.0-96.0); MONO # 0.4 10^3/uL (0.0-0.8); MONO % 7.4 % (2.0-8.0); NEUTROPHILS # 3.4 10^3/uL (1.5-8.5); NEUTROPHILS % 72.1 % (36.0-66.0); PLATELET COUNT, AUTOMATED 143 10^3/uL (150-450); RED BLOOD COUNT 4.18 10^6/uL (4.00-5.40); WHITE BLOOD COUNT 4.8 10^3/uL (4.0-10.0)
[2021-12-31] MEDS ORDERED: KETOROLAC 30 MG/ML 1ML VIAL IV ONE (14:50)
[2021-12-31 15:21] LABS: ACETONE/KETONE 0.91 MG/DL (<2.81); ALBUMIN 3.6 GM/DL (3.2-5.2); BILIRUBIN,DIRECT 0.1 MG/DL (0.0-0.2); BILIRUBIN,TOTAL 0.3 MG/DL (0.2-1.0); TOTAL PROTEIN 7.1 GM/DL (6.4-8.2)
[2021-12-31] MEDS ORDERED: ISOVUE-370 76% 100ML VIAL As Ordered ONE (15:42)
[2021-12-31 16:31] VITALS: O2SAT 96
[2021-12-31] MEDS ORDERED: NIRM1TAB PO (17:01)
[2021-12-31 17:40] VITALS: BP 132/74
== END 2021-12-31 17:54 | disposition home or self-care (01) ==
LOC: M ED 13:20
DX: U07.1 COVID-19 (principal); J12.89 Other viral pneumonia; E11.65 Type 2 diabetes mellitus with hyperglycemia; E66.01 Morbid (severe) obesity due to excess calories; I50.9 Heart failure, unspecified; M79.7 Fibromyalgia; K21.9 Gastro-esophageal reflux disease without esophagitis; F41.9 Anxiety disorder, unspecified; F32.9 Major depressive disorder, single episode, unspecified; Z87.442 Personal history of urinary calculi; Z79.4 Long term (current) use of insulin; Z79.899 Other long term (current) drug therapy
CPT/HCPCS: 71046; 74177; 80047; 80076; 81001; 82010; 83690; 83880; 83930; 85025; 87798; 96374; 99284; J1885; Q9967

== ENCOUNTER 2022-03-10 12:52 | Emergency (ER) | payer OTHER ==
[~2022-03-10] VITALS: Ht 165.1 cm; Wt 145.5 kg
[~2022-03-10 12:52] MED LIST changes: +NIRM1TAB PO
[2022-03-10 17:19] LABS: BASO % 0.3 % (0.0-1.0); EOS % 0.4 % (0.0-3.0); HEMATOCRIT 41.4 % (36.0-47.0); HEMOGLOBIN 13.2 g/dl (12.0-15.5); LYMPH # 2.5 10^3/uL (1.5-5.0); LYMPH % 34.6 % (24.0-44.0); MEAN CORPUSCULAR HEMOGLOBIN 29.3 pg (27.0-33.0); MEAN CORPUSCULAR HGB CONC 31.9 g/dl (32.0-36.5); MEAN CORPUSCULAR VOLUME 91.8 fl (80.0-96.0); MONO # 0.5 10^3/uL (0.0-0.8); MONO % 6.6 % (2.0-8.0); NEUTROPHILS # 4.1 10^3/uL (1.5-8.5); NEUTROPHILS % 57.5 % (36.0-66.0); PLATELET COUNT, AUTOMATED 198 10^3/uL (150-450); RED BLOOD COUNT 4.51 10^6/uL (4.00-5.40); WHITE BLOOD COUNT 7.1 10^3/uL (4.0-10.0)
[2022-03-10] MEDS ORDERED: BENZONATATE 100MG CAPSULE PO ONE (17:30)
[2022-03-10] MEDS ORDERED: ALBUTEROL 90 MCG/ACT 8GM HFA INHALER INH ONE (17:30)
[2022-03-10] MEDS ORDERED: BENZ200C70 PO (18:06)
[2022-03-10] MEDS ORDERED: PROAAER10 INH (18:07)
[2022-03-10 18:17] VITALS: BP 138/76
== END 2022-03-10 18:29 | disposition home or self-care (01) ==
LOC: M ED 12:52
DX: J20.9 Acute bronchitis, unspecified (principal); J44.9 Chronic obstructive pulmonary disease, unspecified; J02.9 Acute pharyngitis, unspecified; E87.6 Hypokalemia; Z86.16 Personal history of COVID-19; F41.9 Anxiety disorder, unspecified; F32.9 Major depressive disorder, single episode, unspecified; E11.9 Type 2 diabetes mellitus without complications; I50.9 Heart failure, unspecified; M79.7 Fibromyalgia; K21.9 Gastro-esophageal reflux disease without esophagitis; Z87.442 Personal history of urinary calculi; Z87.891 Personal history of nicotine dependence; Z79.3 Long term (current) use of hormonal contraceptives; Z79.899 Other long term (current) drug therapy

== ENCOUNTER 2022-05-23 17:04 | Emergency (ER) | payer OTHER ==
[~2022-05-23] VITALS: Ht 165.1 cm; Wt 147.7 kg
[~2022-05-23 17:04] MED LIST changes: +BENZ200C70 PO; +PROAAER10 INH
[2022-05-23] MEDS ORDERED: AMIT10TA7 PO (20:10)
[2022-05-23 20:12] LABS: BASO % 0.4 % (0.0-1.0); HEMATOCRIT 39.5 % (36.0-47.0); HEMOGLOBIN 12.4 g/dl (12.0-15.5); LYMPH # 1.6 10^3/uL (1.5-5.0); LYMPH % 13.9 % (24.0-44.0); MEAN CORPUSCULAR HEMOGLOBIN 29.4 pg (27.0-33.0); MEAN CORPUSCULAR HGB CONC 31.4 g/dl (32.0-36.5); MEAN CORPUSCULAR VOLUME 93.6 fl (80.0-96.0); MONO # 0.5 10^3/uL (0.0-0.8); NEUTROPHILS # 9.1 10^3/uL (1.5-8.5); NEUTROPHILS % 80.5 % (36.0-66.0); PLATELET COUNT, AUTOMATED 174 10^3/uL (150-450); RED BLOOD COUNT 4.22 10^6/uL (4.00-5.40); WHITE BLOOD COUNT 11.3 10^3/uL (4.0-10.0)
[2022-05-23] MEDS ORDERED: MECLIZINE 25 MG TABLET PO ONE (20:25)
[2022-05-23 20:45] LABS: CALCIUM LEVEL 9.7 MG/DL (8.8-10.2); CREATININE FOR GFR 1.02 MG/DL (0.55-1.30); GLOMERULAR FILTRATION RATE 58.8 (>45); POTASSIUM SERUM 4.1 MEQ/L (3.5-5.1); THYROID STIMULATING HORMONE 1.15 uIU/ML (0.358-3.740)
[2022-05-23 21:00] VITALS: BP 167/93
[2022-05-23] MEDS ORDERED: MECL1TAB31 PO (23:24)
[2022-05-24 00:08] VITALS: O2SAT 98
== END 2022-05-24 00:34 | disposition home or self-care (01) ==
LOC: M ED 17:04
DX: R42 Dizziness and giddiness (principal); I50.9 Heart failure, unspecified; E11.9 Type 2 diabetes mellitus without complications; K21.9 Gastro-esophageal reflux disease without esophagitis; F34.1 Dysthymic disorder; Z79.4 Long term (current) use of insulin; Z79.899 Other long term (current) drug therapy

== ENCOUNTER → 2022-08-05 | Outpatient (CLI) | payer MEDICARE, OTHER ==
[~2022-08-05] MED LIST changes: +AMIT10TA7 PO; +MECL1TAB31 PO
[2022-08-05 09:09] LABS: BASO % 0.4 % (0.0-1.0); EOS % 0.3 % (0.0-3.0); HEMATOCRIT 38.4 % (36.0-47.0); LYMPH # 1.8 10^3/uL (1.5-5.0); LYMPH % 23.7 % (24.0-44.0); MEAN CORPUSCULAR HEMOGLOBIN 29.2 pg (27.0-33.0); MEAN CORPUSCULAR HGB CONC 31.3 g/dl (32.0-36.5); MEAN CORPUSCULAR VOLUME 93.4 fl (80.0-96.0); MONO # 0.4 10^3/uL (0.0-0.8); MONO % 5.7 % (2.0-8.0); NEUTROPHILS # 5.4 10^3/uL (1.5-8.5); NEUTROPHILS % 68.9 % (36.0-66.0); PLATELET COUNT, AUTOMATED 166 10^3/uL (150-450); RED BLOOD COUNT 4.11 10^6/uL (4.00-5.40); WHITE BLOOD COUNT 7.8 10^3/uL (4.0-10.0)
[2022-08-05 09:45] LABS: HEMOGLOBIN A1c 8.4 %
[2022-08-05 09:56] LABS: CREATININE, URINE 61.5 MG/DL; MALB URINE SIEMENS 54.4 MG/L; MAU/CREAT RATIO 88.4 MCG/MG (0.0-30.0)
[2022-08-05 10:03] LABS: ALBUMIN 3.5 GM/DL (3.2-5.2); ALT/SGPT 21 U/L (12-78); BILIRUBIN,TOTAL 0.4 MG/DL (0.2-1.0); BLOOD UREA NITROGEN 23 MG/DL (7-18); CALCIUM LEVEL 8.6 MG/DL (8.8-10.2); CARBON DIOXIDE LEVEL 33 MEQ/L (21-32); CHLORIDE LEVEL 104 MEQ/L (98-107); CHOLESTEROL LEVEL 148 MG/DL (<200); CHOLESTEROL RISK RATIO 4.484 (<5); GLOMERULAR FILTRATION RATE > 60.0 (>45); GLUCOSE, FASTING 238 MG/DL (70-100); HDL CHOLESTEROL 33 MG/DL (>40); LDL CHOLESTEROL 82 MG/DL (<100); NON-HDL-C 115 MG/DL; NT-PRO BNP 37 PG/ML (<125); POTASSIUM SERUM 3.4 MEQ/L (3.5-5.1); SODIUM LEVEL 141 MEQ/L (136-145); TOTAL PROTEIN 6.7 GM/DL (6.4-8.2); TRIGLYCERIDES LEVEL 164 MG/DL (<150)
[2022-08-05 10:21] LABS: TOTAL 25(OH) VITAMIN D 22.8 NG/ML (30.0-100.0)
== END ==
LOC: M LAB 08:23
PROVIDERS: ATTEND Physician Assistant
DX: I50.41 Acute combined systolic (congestive) and diastolic (congestive) heart failure (principal); E11.42 Type 2 diabetes mellitus with diabetic polyneuropathy

== ENCOUNTER → 2022-08-27 | Outpatient (REF) | payer OTHER, MEDICARE ==
[2022-08-27 18:59] LABS: APPEARANCE, URINE MANUAL HAZY (CLEAR)
[2022-08-27 19:00] LABS: BILIRUBIN, URINE MANUAL NEGATIVE (NEGATIVE); BLOOD URINE MANUAL NEGATIVE (NEGATIVE); COLOR, URINE MANUAL LT YELLOW (YELLOW); GLUCOSE, URINE (UA) MANUAL 4+(1000 MG/DL) mg/dL (NEGATIVE); KETONE, URINE MANUAL NEGATIVE (NEGATIVE); LEUKOCYTE ESTERASE, URINE MAN NEGATIVE (NEGATIVE); NITRITE, URINE MANUAL TRACE (NEGATIVE); PROTEIN, URINE MANUAL TRACE mg/dL (NEGATIVE); SPECIFIC GRAVITY,URINE MANUAL 1.015 (1.002-1.035); UROBILINOGEN, URINE MANUAL NORMAL (NORMAL)
[2022-08-27 19:48] LABS: RBC, URINE 0-1 /hpf (0-3)
[2022-08-27 19:49] LABS: BACTERIA, URINE LARGE AMOUNT; HYALINE CAST, URINE NONE SEEN /lpf (0-1); SQUAMOUS EPITHELIAL CELL URINE MOD AMOUNT /hpf (SMALL AMT); YEAST, URINE SMALL AMOUNT
== END ==
LOC: M SFHCLERA 10:46
PROVIDERS: ATTEND Physician Assistant
DX: R30.0 Dysuria (principal)

== ENCOUNTER → 2022-09-01 | Outpatient (CLI) | payer OTHER, MEDICARE ==
[2022-09-01 13:57] LABS: BLOOD UREA NITROGEN 17 MG/DL (7-18); CARBON DIOXIDE LEVEL 34 MEQ/L (21-32); CHLORIDE LEVEL 102 MEQ/L (98-107); CREATININE FOR GFR 0.89 MG/DL (0.55-1.30); GLOMERULAR FILTRATION RATE > 60.0 (>45); GLUCOSE, FASTING 264 MG/DL (70-100); POTASSIUM SERUM 4.1 MEQ/L (3.5-5.1); SODIUM LEVEL 141 MEQ/L (136-145)
== END ==
LOC: M LAB 11:42
PROVIDERS: ATTEND Internal Medicine Cardiovascular Disease
DX: I50.32 Chronic diastolic (congestive) heart failure (principal)

== ENCOUNTER → 2023-01-30 | Outpatient (CLI) | payer OTHER ==
[~2023-01-30] MED LIST changes: -POTA10CA32 PO; +POTA10CA33 PO
== END ==
LOC: M SLEEP 20:00
PROVIDERS: ATTEND Internal Medicine Critical Care Medicine
DX: G47.33 Obstructive sleep apnea (adult) (pediatric) (principal)

== ENCOUNTER → 2023-02-27 | Outpatient (CLI) | payer OTHER | LOC: M CARPUL 10:32 | PROVIDERS: ATTEND Internal Medicine Critical Care Medicine | DX: R06.00 Dyspnea, unspecified (principal); I08.1 Rheumatic disorders of both mitral and tricuspid valves ==

== ENCOUNTER 2023-04-10 13:26 | Emergency (ER) | payer OTHER ==
[~2023-04-10] VITALS: Ht 165.1 cm; Wt 114.5 kg
[~2023-04-10 13:26] MED LIST changes: +LORA1TAB23 PO; -LORA1TAB4 PO
[2023-04-10 13:27] VITALS: BP 170/78
[2023-04-10 14:38] LABS: BASO % 0.3 % (0.0-1.0); EOS % 0.2 % (0.0-3.0); HEMOGLOBIN 12.3 g/dl (12.0-15.5); LYMPH # 3.1 10^3/uL (1.5-5.0); MEAN CORPUSCULAR HEMOGLOBIN 27.7 pg (27.0-33.0); MEAN CORPUSCULAR HGB CONC 31.5 g/dl (32.0-36.5); MEAN CORPUSCULAR VOLUME 87.8 fl (80.0-96.0); MONO # 0.6 10^3/uL (0.0-0.8); MONO % 5.2 % (2.0-8.0); NEUTROPHILS # 7.7 10^3/uL (1.5-8.5); NEUTROPHILS % 66.6 % (36.0-66.0); PLATELET COUNT, AUTOMATED 233 10^3/uL (150-450); RED BLOOD COUNT 4.44 10^6/uL (4.00-5.40); WHITE BLOOD COUNT 11.5 10^3/uL (4.0-10.0)
[2023-04-10 14:39] LABS: BLOOD UREA NITROGEN 16 MG/DL (9-23); CALCIUM LEVEL 8.6 MG/DL (8.3-10.6); CARBON DIOXIDE LEVEL 31 MMOL/L (20-31); CHLORIDE LEVEL 103 MMOL/L (98-107); GLOMERULAR FILTRATION RATE > 60.0 (>45); GLUCOSE, FASTING 189 MG/DL (74-106); POTASSIUM SERUM 3.3 MMOL/L (3.5-5.1); SODIUM LEVEL 143 MMOL/L (136-145)
[2023-04-10 14:51] LABS: ERYTHROCYTE SEDIMENTATION RATE 72 mm/hr (0-30)
[2023-04-10] MEDS ORDERED: ONDA4TAB6 PO (16:55)
[2023-04-10] MEDS ORDERED: BACT800T5 PO (16:55)
[2023-04-10] MEDS ORDERED: BACTRIM 160MG/800MG DS TAB PO SCH (21:00)
== END 2023-04-10 17:23 | disposition home or self-care (01) ==
LOC: M ED 13:26
DX: L03.115 Cellulitis of right lower limb (principal); L03.116 Cellulitis of left lower limb; E66.9 Obesity, unspecified; E11.9 Type 2 diabetes mellitus without complications; I50.9 Heart failure, unspecified; F41.9 Anxiety disorder, unspecified; F32.9 Major depressive disorder, single episode, unspecified; K21.9 Gastro-esophageal reflux disease without esophagitis; Z87.442 Personal history of urinary calculi; Z79.4 Long term (current) use of insulin; Z79.899 Other long term (current) drug therapy

== ENCOUNTER → 2023-07-01 | Outpatient (CLI) | payer OTHER ==
[~2023-07-01] MED LIST changes: -GABA-283 PO; +GABA-284 PO; +ONDA4TAB6 PO; -POTA10CA33 PO; +POTA10CA60 PO
== END ==
LOC: M RAD 13:42
PROVIDERS: ATTEND Internal Medicine Critical Care Medicine
DX: Z12.2 Encounter for screening for malignant neoplasm of respiratory organs (principal); Z87.891 Personal history of nicotine dependence

== ENCOUNTER → 2023-07-31 | Outpatient (REF) | payer OTHER ==
[~2023-07-31] MED LIST changes: +MECL-209 PO; -MECL1TAB31 PO
== END ==
LOC: M LAB REF 10:00
PROVIDERS: ATTEND Physician Assistant
DX: R19.7 Diarrhea, unspecified (principal)

== ENCOUNTER → 2023-08-01 | Outpatient (CLI) | payer OTHER ==
[2023-08-01 11:09] LABS: BASO % 0.4 % (0.0-1.0); EOS % 0.2 % (0.0-3.0); HEMATOCRIT 38.5 % (36.0-47.0); HEMOGLOBIN 11.9 g/dl (12.0-15.5); LYMPH # 3.3 10^3/uL (1.5-5.0); LYMPH % 34.1 % (24.0-44.0); MEAN CORPUSCULAR HEMOGLOBIN 27.8 pg (27.0-33.0); MEAN CORPUSCULAR HGB CONC 30.9 g/dl (32.0-36.5); MONO # 0.5 10^3/uL (0.0-0.8); MONO % 5.5 % (2.0-8.0); NEUTROPHILS # 5.7 10^3/uL (1.5-8.5); NEUTROPHILS % 59.4 % (36.0-66.0); PLATELET COUNT, AUTOMATED 197 10^3/uL (150-450); RED BLOOD COUNT 4.28 10^6/uL (4.00-5.40); WHITE BLOOD COUNT 9.5 10^3/uL (4.0-10.0)
[2023-08-01 11:16] LABS: HEMOGLOBIN A1c 8.4 % (4.0-6.0)
[2023-08-01 11:18] LABS: URIC ACID 6.2 MG/DL (3.1-7.8)
[2023-08-01 11:19] LABS: IRON (FE) 42 UG/DL (50-170); PERCENT SATURATION 14.4 % (13.2-45.0); TOTAL IRON BINDING CAPACITY 292 UG/DL (250-425)
[2023-08-01 11:20] LABS: ALBUMIN 3.8 G/DL (3.2-5.2); ALKALINE PHOSPHATASE 110 U/L (46-116); ALT/SGPT 17 U/L (7.0-40); AST/SGOT < 8 U/L (<34); BILIRUBIN,TOTAL 0.4 MG/DL (0.3-1.2); BLOOD UREA NITROGEN 20 MG/DL (9-23); CARBON DIOXIDE LEVEL 34 MMOL/L (20-31); CHLORIDE LEVEL 105 MMOL/L (98-107); CHOLESTEROL LEVEL 128 MG/DL (<200); CHOLESTEROL RISK RATIO 4.26 (<5); CREATININE FOR GFR 0.74 MG/DL (0.55-1.30); GLOMERULAR FILTRATION RATE > 60.0 (>45); GLUCOSE, FASTING 247 MG/DL (74-106); MAGNESIUM LEVEL 1.8 MG/DL (1.8-2.4); POTASSIUM SERUM 3.6 MMOL/L (3.5-5.1); SODIUM LEVEL 148 MMOL/L (136-145); THYROID STIMULATING HORMONE 1.694 uIU/ML (0.55-4.78); TOTAL PROTEIN 6.9 G/DL (5.7-8.2); TRIGLYCERIDES LEVEL 125 MG/DL (<150)
[2023-08-01 11:21] LABS: FERRITIN 88.9 NG/ML (7.3-270.7); FREE T4 1.03 NG/DL (0.89-1.76); RHEUMATOID FACTOR QUANT 6.7 IU/ML (<14); TOTAL 25(OH) VITAMIN D 18.5 NG/ML (20.0-100.0)
[2023-08-01 11:22] LABS: FOLATE 13.8 NG/ML (>5.4); VITAMIN B12 LEVEL 267 PG/ML (211-911)
[2023-08-01 11:27] LABS: APPEARANCE, URINE CLEAR (CLEAR); BACTERIA, URINE AUTO NEGATIVE (NEGATIVE); BILIRUBIN, URINE AUTO NEGATIVE (NEGATIVE); BLOOD, URINE BLOOD NEGATIVE (NEGATIVE); COLOR, URINE YELLOW (YELLOW); GLUCOSE, URINE (UA) AUTO 3+ mg/dL (NEGATIVE); KETONE, URINE AUTO NEGATIVE (NEGATIVE); LEUKOCYTE ESTERASE, URINE AUTO NEGATIVE (NEGATIVE); NITRITE, URINE AUTO NEGATIVE (NEGATIVE); PROTEIN, URINE AUTO NEGATIVE (NEGATIVE); RBC, URINE AUTO 0 /HPF (0-3); SPECIFIC GRAVITY URINE AUTO 1.026 (1.002-1.035); SQUAMOUS EPITHELIAL CELL UR AU 1 /HPF (0-6); WBC, URINE AUTO 2 /HPF (0-3)
[2023-08-01 11:30] LABS: CREATININE, URINE 58.2 MG/DL; MAU/CREAT RATIO 42.9 MCG/MG (0.0-30.0)
[2023-08-01 12:23] LABS: ERYTHROCYTE SEDIMENTATION RATE 41 mm/hr (0-30)
== END ==
LOC: M LAB 09:08
PROVIDERS: ATTEND Physician Assistant
DX: R19.7 Diarrhea, unspecified (principal); E11.42 Type 2 diabetes mellitus with diabetic polyneuropathy; I87.2 Venous insufficiency (chronic) (peripheral); M25.50 Pain in unspecified joint

== ENCOUNTER 2024-02-23 18:17 | Observation (INO) | payer OTHER, MEDICARE, MEDICAID ==
[~2024-02-23] VITALS: Ht 165.1 cm; Wt 141.0 kg
[2024-02-23 19:32] LABS: HEMATOCRIT 36.1 % (36.0-47.0); HEMOGLOBIN 11.6 g/dl (12.0-15.5); MEAN CORPUSCULAR HEMOGLOBIN 28.1 pg (27.0-33.0); MEAN CORPUSCULAR HGB CONC 32.1 g/dl (32.0-36.5); MEAN CORPUSCULAR VOLUME 87.4 fl (80.0-96.0); PLATELET COUNT, AUTOMATED 219 10^3/uL (150-450); RED BLOOD COUNT 4.13 10^6/uL (4.00-5.40); WHITE BLOOD COUNT 12.3 10^3/uL (4.0-10.0)
[2024-02-23 19:40] LABS: ERYTHROCYTE SEDIMENTATION RATE 90 mm/hr (0-30)
[2024-02-23 19:53] LABS: BLOOD UREA NITROGEN 16 MG/DL (9-23); CALCIUM LEVEL 8.1 MG/DL (8.3-10.6); CARBON DIOXIDE LEVEL 30 MMOL/L (20-31); CHLORIDE LEVEL 105 MMOL/L (98-107); CREATININE FOR GFR 0.87 MG/DL (0.55-1.30); GLOMERULAR FILTRATION RATE > 60.0 (>45); GLUCOSE, FASTING 178 MG/DL (74-106); POTASSIUM SERUM 3.4 MMOL/L (3.5-5.1); SODIUM LEVEL 142 MMOL/L (136-145)
[2024-02-23 20:00] LABS: ATYPICAL LYMPH 4 % (0-5); LYMPHOCYTES 24 % (16-44); MONOCYTES 2 % (0-5); NEUTROPHILS 67 % (28-66); PLATELET ESTIMATE NORMAL (NORMAL)
[2024-02-24] MEDS ORDERED: ISOVUE-370 76% 100ML VIAL As Ordered ONE (01:40)
[2024-02-24] MEDS: CEFTAROLINE FOSAMIL 600 MG in D5W MINI-BAG PLUS 50 ML IV ONE (02:13)
[2024-02-24] MEDS ORDERED: ceFAZolin SOD 1 GM in D5W MINI-BAG PLUS 50 ML IV SCH (04:00)
[2024-02-24] MEDS ORDERED: DEXTROSE 50% 50ML SYRINGE IV PRN (04:10)
[2024-02-24] MEDS ORDERED: IBUPROFEN 400MG TAB PO PRN (04:10)
[2024-02-24] MEDS ORDERED: ACETAMINOPHEN TAB 650MG DOSE (2X325MG) PO PRN (04:10)
[2024-02-24] MEDS ORDERED: GLUCAGON INJ 1MG VIAL SC PRN (04:10)
[2024-02-24] MEDS ORDERED: GLUCOSE 4GM CHEW TABLET PO PRN (04:10)
[2024-02-24] MEDS: POTASSIUM CHLORIDE 10MEQ SR TABLET PO ONE (05:49)
[2024-02-24] MEDS ORDERED: ERGO500029 PO (06:01)
[2024-02-24] MEDS ORDERED: GABA800T4 PO (06:01)
[2024-02-24] MEDS ORDERED: ALBU8.5H INH (06:01)
[2024-02-24] MEDS ORDERED: TIRZ10PE SQ (06:01)
[2024-02-24] MEDS ORDERED: AMOX875T2 PO (06:01)
[2024-02-24] MEDS ORDERED: FAMO40TA3 PO (06:01)
[2024-02-24] MEDS ORDERED: TORS20TA2 PO (06:01)
[2024-02-24] MEDS ORDERED: SPIR50TA4 PO (06:01)
[2024-02-24] MEDS ORDERED: RA M10TA PO (06:09)
[2024-02-24] MEDS ORDERED: ONDA4TAB6 PO (06:09)
[2024-02-24] MEDS ORDERED: MED REC IN PROGRESS XX SCH (06:15)
[2024-02-24] MEDS ORDERED: ONDANSETRON 4MG ORAL DISINTEGRATING TAB PO PRN (07:20)
[2024-02-24] MEDS ORDERED: ALBUTEROL 90 MCG/ACT 8GM HFA INHALER INH PRN (07:20)
[2024-02-24] MEDS: INSULIN LISPRO (NovoLOG) PER UNIT SC SCH ×2 (07:30→20:11)
[2024-02-24] MEDS ORDERED: HOME MED LIST COMPLETE! XX SCH (08:30)
[2024-02-24] MEDS: VENLAFAXINE 37.5 MG TAB PO SCH (09:00)
[2024-02-24] MEDS: SPIRONOLACTONE 50 MG TAB PO SCH (09:13)
[2024-02-24] MEDS: GABAPENTIN 400MG CAP PO SCH (09:13)
[2024-02-24] MEDS: TORSEMIDE 20 MG TAB PO SCH (09:13)
[2024-02-24 12:11] VITALS: BP 121/69; TEMP 97.1; O2SAT 100
[2024-02-24] MEDS: CEFTAROLINE FOSAMIL 600 MG in D5W MINI-BAG PLUS 50 ML IV SCH (15:47)
[2024-02-24] MEDS: HEPARIN SOD (PORCINE) 5000UNITS/ML 1ML VIAL/SYRINGE SQ SCH (15:47)
[2024-02-24] MEDS: MUPIROCIN 2% OINT 22 GM TUBE TOP SCH (15:48)
[2024-02-24 19:48] VITALS: BP 132/63; TEMP 98.5; O2SAT 99
[2024-02-24] MEDS: PRAVASTATIN 20 MG TAB PO SCH (20:21)
[2024-02-24] MEDS: traZODone 100 MG TAB PO SCH (20:21)
[2024-02-24] MEDS: PRAMIPEXOLE 1 MG TAB PO SCH (20:21)
[2024-02-24] MEDS: OMEPRAZOLE 20MG CAP PO SCH (20:22)
[2024-02-24] MEDS: CETIRIZINE (ZyrTEC) 10 MG TAB PO SCH (20:22)
[2024-02-24] MEDS: MONTELUKAST 10 MG TAB PO SCH (20:22)
[2024-02-24] MEDS: VENLAFAXINE **XR** 75MG CAPSULE PO SCH (20:22)
[2024-02-24] MEDS: FAMOTIDINE 20 MG TAB PO SCH (20:23)
[2024-02-24] MEDS: AMITRIPTYLINE 10MG TABLET PO SCH (20:23)
[2024-02-24] MEDS: LEVEMIR (INSULIN DETEMIR) 1 UNITS/0.01ML SC SCH (20:27)
[2024-02-24] MEDS ORDERED: PILL CUTTER 1 EACH XX PRN (20:40)
[2024-02-25 05:28] VITALS: BP 115/57; TEMP 97.3; O2SAT 96
[2024-02-25 08:51] LABS: BLOOD UREA NITROGEN 19 MG/DL (9-23); CALCIUM LEVEL 8.3 MG/DL (8.3-10.6); CARBON DIOXIDE LEVEL 30 MMOL/L (20-31); CHLORIDE LEVEL 106 MMOL/L (98-107); GLOMERULAR FILTRATION RATE > 60.0 (>45); GLUCOSE, FASTING 153 MG/DL (74-106); POTASSIUM SERUM 3.5 MMOL/L (3.5-5.1); SODIUM LEVEL 140 MMOL/L (136-145)
[2024-02-25 09:08] LABS: ERYTHROCYTE SEDIMENTATION RATE 46 mm/hr (0-30)
[2024-02-25 09:27] LABS: BASO # 0.1 10^3/uL (0.0-0.2); BASO % 0.5 % (0.0-1.0); EOS % 0.4 % (0.0-3.0); HEMATOCRIT 34.4 % (36.0-47.0); HEMOGLOBIN 10.8 g/dl (12.0-15.5); LYMPH # 3.9 10^3/uL (1.5-5.0); LYMPH % 38.1 % (24.0-44.0); MEAN CORPUSCULAR HEMOGLOBIN 28.1 pg (27.0-33.0); MEAN CORPUSCULAR HGB CONC 31.4 g/dl (32.0-36.5); MEAN CORPUSCULAR VOLUME 89.4 fl (80.0-96.0); MONO # 0.6 10^3/uL (0.0-0.8); MONO % 5.5 % (2.0-8.0); NEUTROPHILS # 5.6 10^3/uL (1.5-8.5); NEUTROPHILS % 54.8 % (36.0-66.0); PLATELET COUNT, AUTOMATED 210 10^3/uL (150-450); RED BLOOD COUNT 3.85 10^6/uL (4.00-5.40); WHITE BLOOD COUNT 10.3 10^3/uL (4.0-10.0)
[2024-02-25] MEDS ORDERED: CIPR500T39 PO (10:06)
[2024-02-25] MEDS ORDERED: DOXY-444 PO (10:06)
[2024-02-25] MEDS ORDERED: MUPI2OI TOP (10:06)
[2024-02-25 14:00] VITALS: BP 114/56; TEMP 97.9; O2SAT 97
[2024-02-29] MEDS ORDERED: VITAMIN D 50,000 UNITS CAPSULE (ERGOCALCIFEROL 1.25MG) PO SCH (09:00)
== END 2024-02-25 15:15 | disposition home or self-care (01) ==
LOC: M ED 18:17 → M ED INP 18:18 → M MS4PR 02-24 12:11
PROVIDERS: ADMIT Preventive Medicine Undersea and Hyperbaric Medicine; ATTEND Preventive Medicine Undersea and Hyperbaric Medicine
DX: L03.211 Cellulitis of face (principal); I10 Essential (primary) hypertension; E66.01 Morbid (severe) obesity due to excess calories; F41.9 Anxiety disorder, unspecified; F32.A Depression, unspecified; E11.9 Type 2 diabetes mellitus without complications; E03.9 Hypothyroidism, unspecified; Z79.2 Long term (current) use of antibiotics; Z79.4 Long term (current) use of insulin; K21.9 Gastro-esophageal reflux disease without esophagitis; Z91.040 Latex allergy status; Z79.899 Other long term (current) drug therapy
CPT/HCPCS: 36415; 70487; 80048; 83605; 84145; 85025; 85652; 86140; 87040; 87641; 96365; 96366; 99284; G0378; J0712; J1815; Q9967

== ENCOUNTER → 2024-07-26 | Outpatient (CLI) | payer OTHER, MEDICAID ==
[~2024-07-26] MED LIST changes: +ALBU8.5H INH; +AMOX875T2 PO; +CIPR500T39 PO; +DOXY-440 PO; +ERGO500029 PO; +FAMO40TA3 PO; +GABA-1635 PO; +MUPI2OI TOP; +ONDA-282 PO; -ONDA4TAB6 PO; -POTA10CA60 PO; +POTA10CA70 PO; +RA M10TA PO; +SPIR50TA4 PO; +TIRZ10PE SQ
[2024-07-26 14:24] LABS: CREATININE, URINE 63.8 MG/DL; HEMOGLOBIN A1c 8.6 % (4.0-6.0)
[2024-07-26 14:26] LABS: ALBUMIN 3.8 G/DL (3.2-5.2); ALKALINE PHOSPHATASE 118 U/L (46-116); ALT/SGPT 18 U/L (7.0-40); AST/SGOT < 8 U/L (<34); BILIRUBIN,TOTAL 0.5 MG/DL (0.3-1.2); BLOOD UREA NITROGEN 31 MG/DL (9-23); CARBON DIOXIDE LEVEL 29 MMOL/L (20-31); CHLORIDE LEVEL 106 MMOL/L (98-107); CHOLESTEROL LEVEL 126 MG/DL (<200); CHOLESTEROL RISK RATIO 4.34 (<5); CREATININE FOR GFR 0.97 MG/DL (0.55-1.30); GLOMERULAR FILTRATION RATE > 60.0 (>45); GLUCOSE, FASTING 201 MG/DL (74-106); LDL CHOLESTEROL 69.2 MG/DL (<100); MAU/CREAT RATIO 20.3 MCG/MG (0.0-30.0); POTASSIUM SERUM 4.1 MMOL/L (3.5-5.1); RHEUMATOID FACTOR QUANT 6.1 IU/ML (<14); SODIUM LEVEL 142 MMOL/L (136-145); THYROID STIMULATING HORMONE 2.865 uIU/ML (0.55-4.78); TOTAL PROTEIN 7.1 G/DL (5.7-8.2); TRIGLYCERIDES LEVEL 139 MG/DL (<150)
[2024-07-26 14:27] LABS: TOTAL 25(OH) VITAMIN D 54.5 NG/ML (20.0-100.0)
[2024-07-26 14:28] LABS: VITAMIN B12 LEVEL 329 PG/ML (211-911)
== END ==
LOC: M PLALAB 11:07
PROVIDERS: ATTEND Physician Assistant
DX: E11.9 Type 2 diabetes mellitus without complications (principal); E11.42 Type 2 diabetes mellitus with diabetic polyneuropathy; I50.41 Acute combined systolic (congestive) and diastolic (congestive) heart failure; E55.9 Vitamin D deficiency, unspecified; M79.7 Fibromyalgia; E66.01 Morbid (severe) obesity due to excess calories